=== PATIENT | female | born 1940 | race Caucasian/White ===

== ENCOUNTER 2016-06-10 11:50 | Emergency (ER) | payer MEDICARE, OTHER ==
[2016-06-10] MEDS ORDERED: SODIUM CHLORIDE 0.9% 1,000 ML IV ONE (12:39)
[2016-06-10] MEDS ORDERED: IPRATROPIUM-ALBUTEROL 3 ML NEB INHALATION STA (12:39)
[2016-06-10 13:35] LABS: ALT 31 U/L (9-52); AST 28 U/L (14-36); Alkaline Phosphatase 91 U/L (38-126); Anion Gap 11 mmol/L; Blood Urea Nitrogen 9 mg/dL (7-17); Calcium 8.7 mg/dL (8.4-10.2); Carbon Dioxide 26 mmol/L (22-30); Chloride 105 mmol/L (98-107); Glucose 105 mg/dL (74-99); Non-African American GFR(MDRD) >60 (>60 ml/min/1.73 sqM); Potassium 3.4 mmol/L (3.5-5.1); Sodium 142 mmol/L (137-145); Total Bilirubin 0.6 mg/dL (0.2-1.3); Total Protein 6.7 g/dL (6.3-8.2)
[2016-06-10 13:48] LABS: Basophils % (A) 1 %; CH 26.5; CHCM 32.7; Eosinophils # (A) 0.1 k/uL (0-0.7); Eosinophils % (A) 1 %; HCT 40.5 % (34.0-46.0); HDW 2.88; HGB 13.2 gm/dL (11.4-16.0); Luc # (Auto) 0.11; Luc % (Auto) 2; Lymphocytes # (A) 0.9 k/uL (1.0-4.8); Lymphocytes % (A) 19 %; MCH 26.5 pg (25.0-35.0); MCHC 32.6 g/dL (31.0-37.0); MCV 81.3 fL (80.0-100.0); Mean Platelet Volume 6.7; Monocytes # (A) 0.2 k/uL (0-1.0); Monocytes % (A) 5 %; Neutrophils # (A) 3.7 k/uL (1.3-7.7); Neutrophils % (A) 73 %; RBC 4.98 m/uL (3.80-5.40); RDW 15.8 % (11.5-15.5); WBC (Perox) 5.34
[2016-06-10 13:57] LABS: Appearance,Urine Cloudy (Clear); Bacteria,Urine Moderate /hpf; Bilirubin,Urine Negative (Negative); Glucose,Urine (UA) Negative (Negative); Ketones,Urine Negative (Negative); Leukocyte Esterase,Urine Large (Negative); Mucus,Urine Rare /hpf; Nitrite,Urine Positive (Negative); Particle Count 69063; Protein,Urine Trace (Negative); RBC,Urine 4 /hpf (0-5); Specific Gravity,Urine 1.016 (1.001-1.035); Squamous Epithelial Cell,Urine 2 /hpf (0-4); UA Billing (MACRO vs. MICRO) MICRO; Urobilinogen,Urine <2.0 mg/dL (<2.0); WBC,Urine 167 /hpf (0-5)
--- NOTE | 2016-06-10 14:01 | XR ---
EXAMINATION TYPE: XR chest 2V DATE OF EXAM: 06/10/2016 1:36 PM COMPARISON: Prior chest x-ray one February 2014 HISTORY: Cough, difficulty in breathing and pain TECHNIQUE: Frontal and lateral views of the chest are obtained. FINDINGS: There is no focal air space opacity, pleural effusion, or pneumothorax seen. The cardiac silhouette size is within normal limits. Apical pleural thickening is again noted. Suspect superimpos ed artifact over the anterior aspect of the heart shadow on the lateral exam. Prominent lung volume m ay be indicative of underlying COPD. The osseous structures are intact. IMPRESSION: No acute cardiopulmonary process.
[2016-06-10] MEDS ORDERED: BENZONATATE 100 MG CAP PO STA (14:24)
[2016-06-10] MEDS ORDERED: guaiFENesin-Coden 100-10MG/5ML 10 ML CUP PO STA (14:24)
[2016-06-10 14:27] LABS: Manual Review Performed
--- NOTE | 2016-06-10 14:54 | ED ---
URI HPI - General Chief Complaint: Upper Respiratory Infection Stated Complaint: cough,jeremy Source: patient Mode of arrival: ambulatory Limitations: no limitations - History of Present Illness Initial Comments: Patient is a 75-year-old female who presents for evaluation for cough 2 days. Past medical history as below. Patient states that her cough is nonproductive. She is around multiple sick contacts. She also has associated runny nose and congestion. No fevers at home. She denied a flu shot this past year. Comes in today because [id number] remedies have not seemed to help with her coughing. She's never been a smoker. No history of COPD. She denies fever, chills, headache, chest pain, heart palpitations, nausea, vomiting, diarrhea, pain or burning with urination. - Related Data Previous Rx's Medication Instructions Recorded Albuterol Inhaler [Ventolin Hfa 1 - 2 puff INHALATION Q6HR PRN #1 06/10/16 Inhaler] inhaler Benzonatate [Tessalon Perles] 100 mg PO TID PRN 5 Days 06/10/16 Ciprofloxacin HCl [Cipro] 500 mg PO Q12HR 5 Days 06/10/16 Allergies Allergy/AdvReac Type Severity Reaction Status Date / Time erythromycin base Allergy Unknown Verified 06/10/16 11:55 Penicillins Allergy Unknown Verified 06/10/16 11:55 Sulfa (Sulfonamide Allergy Unknown Verified 06/10/16 11:55 Antibiotics) tetanus and diphtheria Allergy Unknown Verified 06/10/16 11:55 toxoids [tetanus & diphtheria toxoids] Review of Systems ROS Statement: Those systems with pertinent positive or pertinent negative responses have been documented in the HPI. ROS Other: All systems not noted in ROS Statement are negative. Past Medical History Past Medical History: Coronary Artery Disease (CAD), Dementia, Fibromyalgia Additional Past Medical History / Comment(s): arthritis History of Any Multi-Drug Resistant Organisms: ESBL Date of last positivie culture/infection: 01/15/2016 MDRO Source:: URINE E.COLI Past Surgical History: Appendectomy, Heart Catheterization With Stent, Hysterectomy, Orthopedic Surgery Past Psychological History: No Psychological Hx Reported Smoking Status: Never smoker Past Alcohol Use History: None Reported Past Drug Use History: None Reported General Exam Limitations: no limitations General appearance: alert, in no apparent distress, other (Coughing in stretcher ) Head exam: Present: atraumatic, normocephalic, normal inspection Eye exam: Present: normal appearance, PERRL, EOMI. Absent: scleral icterus, conjunctival injection, periorbital swelling ENT exam: Present: normal exam, mucous membranes moist, other (Slight erythema to the posterior oropharynx.) Neck exam: Present: normal inspection. Absent: tenderness, meningismus, lymphadenopathy Respiratory exam: Present: normal lung sounds bilaterally, other (Clear bilaterally without wheezes rales or rhonchi. No significant tachypnea. No hypoxia.). Absent: respiratory distress, wheezes, rales, rhonchi, stridor Cardiovascular Exam: Present: regular rate, normal rhythm, normal heart sounds. Absent: systolic murmur, diastolic murmur, rubs, gallop, clicks GI/Abdominal exam: Present: soft, normal bowel sounds. Absent: distended, tenderness, guarding, rebound, rigid Extremities exam: Present: normal inspection, full ROM, normal capillary refill. Absent: tenderness, pedal edema, joint swelling, calf tenderness Back exam: Present: normal inspection Neurological exam: Present: alert, oriented X3, CN II-XII intact Psychiatric exam: Present: normal affect, normal mood Skin exam: Present: warm, dry, intact, normal color. Absent: rash Course Vital Signs 06/10/16 06/10/16 06/10/16 11:50 13:05 13:13 Temperature 99.2 F Pulse Rate 68 68 72 Respiratory 18 Rate Blood Pressure 188/79 O2 Sat by Pulse 97 Oximetry 06/10/16 15:04 Temperature 97.8 F Pulse Rate 70 Respiratory 16 Rate Blood Pressure 141/70 O2 Sat by Pulse 95 Oximetry Medical Decision Making - Medical Decision Making Patient presents for evaluation for cough 2 days. Concern for viral illness at this time as she is having upper respiratory symptoms with a nonproductive cough. We'll order basic labs with a two-view chest x-ray, influenza, IV fluids , breathing treatments. -Laboratory findings as below. Largely unremarkable. EKG was reviewed at 1415 revealed possible incomplete left bundle branch block without ST changes. No previous EKGs for comparison. Rate of 73. MS interval 182. QRS 102. QTc 475. Reevaluated the patient discussed findings. No infiltrate on chest x-ray to suggest pneumonia. Influenza negative. She does have evidence of urinary tract infection. Ordered Rocephin and a urine culture. Patient still saying that she has significant cough. We'll order Tessalon Perles and guaifenesin with codeine. 1513: Cough improved after Tessalon Perles and guaifenesin with codeine. Patient states that she just does not feel well. Gave patient the option of observation for urinary tract infection and persistent cough. Patient declined. Patient is more concerned about her at home who has multiple medical conditions including cardiac and lung pathology. She is otherwise clinically stable with normal vital signs. Reexamination of her breath sounds were normal. Believe that the patient has a viral upper respiratory infection at this time complicated by a bacterial urinary tract infection. Multiple ALLERGIES to antibiotics. We'll discharge home on a 5 day course of ciprofloxacin. Was going to do Levaquin but stated that she did not tolerated in the past. We'll also discharge home with albuterol and Tessalon Perles. Encourage close follow-up with her primary care physician. We'll call this afternoon to set up a follow-up appointment in the next 24 hours. Discussed signs and symptoms on when to return to the emergency department for further evaluation. Comfortable with discharge home and follow-up. Frequent handwashing. Plenty of fluids. Tylenol and Motrin when necessary pain. - Lab Data Result diagrams: 06/10/16 13:10 06/10/16 13:10 Lab Results 06/10/16 06/10/16 06/10/16 Range/Units 13:01 13:01 13:10 WBC 5.0 (3.8-10.6) k/uL RBC 4.98 (3.80-5.40) m/uL Hgb 13.2 (11.4-16.0) gm/dL Hct 40.5 (34.0-46.0) % MCV 81.3 (80.0-100.0) fL MCH 26.5 (25.0-35.0) pg MCHC 32.6 (31.0-37.0) g/dL RDW 15.8 H (11.5-15.5) % Plt Count 93 L (150-450) k/uL Neutrophils % 73 % Lymphocytes % 19 % Monocytes % 5 % Eosinophils % 1 % Basophils % 1 % Neutrophils # 3.7 (1.3-7.7) k/uL Lymphocytes # 0.9 L (1.0-4.8) k/uL Monocytes # 0.2 (0-1.0) k/uL Eosinophils # 0.1 (0-0.7) k/uL Basophils # 0.0 (0-0.2) k/uL Manual Slide Review Performed Poikilocytosis (manual Present Sodium (137-145) mmol/L Potassium (3.5-5.1) mmol/L Chloride (98-107) mmol/L Carbon Dioxide (22-30) mmol/L Anion Gap mmol/L BUN (7-17) mg/dL Creatinine (0.52-1.04) mg/dL Est GFR (MDRD) Af Amer (>60 ml/min/1.73 sqM) Est GFR (MDRD) Non-Af (>60 ml/min/1.73 sqM) Glucose (74-99) mg/dL Calcium (8.4-10.2) mg/dL Total Bilirubin (0.2-1.3) mg/dL AST (14-36) U/L ALT (9-52) U/L Alkaline Phosphatase (38-126) U/L Total Protein (6.3-8.2) g/dL Albumin (3.5-5.0) g/dL Urine Color Yellow Urine Appearance Cloudy H (Clear) Urine pH 6.0 (5.0-8.0) Ur Specific [place] 1.016 (1.001-1.035) Urine Protein Trace H (Negative) Urine Glucose (UA) Negative (Negative) Urine Ketones Negative (Negative) Urine Blood Trace H (Negative) Urine Nitrate Positive H (Negative) Urine Bilirubin Negative (Negative) Urine Urobilinogen <2.0 (<2.0) mg/dL Ur Leukocyte Esterase Large H (Negative) Urine RBC 4 (0-5) /hpf Urine WBC 167 H (0-5) /hpf Ur Squamous Epith Cells 2 (0-4) /hpf Urine Bacteria Moderate H (None) /hpf Urine Mucus Rare H (None) /hpf Influenza Type A RNA Not Detected (Not Detectd) Influenza Type B (PCR) Not Detected (Not Detectd) 06/10/16 Range/Units 13:10 WBC (3.8-10.6) k/uL RBC (3.80-5.40) m/uL Hgb (11.4-16.0) gm/dL Hct (34.0-46.0) % MCV (80.0-100.0) fL MCH (25.0-35.0) pg MCHC (31.0-37.0) g/dL RDW (11.5-15.5) % Plt Count (150-450) k/uL Neutrophils % % Lymphocytes % % Monocytes % % Eosinophils % % Basophils % % Neutrophils # (1.3-7.7) k/uL Lymphocytes # (1.0-4.8) k/uL Monocytes # (0-1.0) k/uL Eosinophils # (0-0.7) k/uL Basophils # (0-0.2) k/uL Manual Slide Review Poikilocytosis (manual Sodium 142 (137-145) mmol/L Potassium 3.4 L (3.5-5.1) mmol/L Chloride 105 (98-107) mmol/L Carbon Dioxide 26 (22-30) mmol/L Anion Gap 11 mmol/L BUN 9 (7-17) mg/dL Creatinine 0.63 (0.52-1.04) mg/dL Est GFR (MDRD) Af Amer >60 (>60 ml/min/1.73 sqM) Est GFR (MDRD) Non-Af >60 (>60 ml/min/1.73 sqM) Glucose 105 H (74-99) mg/dL Calcium 8.7 (8.4-10.2) mg/dL Total Bilirubin 0.6 (0.2-1.3) mg/dL AST 28 (14-36) U/L ALT 31 (9-52) U/L Alkaline Phosphatase 91 (38-126) U/L Total Protein 6.7 (6.3-8.2) g/dL Albumin 4.0 (3.5-5.0) g/dL Urine Color Urine Appearance (Clear) Urine pH (5.0-8.0) Ur Specific [place] (1.001-1.035) Urine Protein (Negative) Urine Glucose (UA) (Negative) Urine Ketones (Negative) Urine Blood (Negative) Urine Nitrate (Negative) Urine Bilirubin (Negative) Urine Urobilinogen (<2.0) mg/dL Ur Leukocyte Esterase (Negative) Urine RBC (0-5) /hpf Urine WBC (0-5) /hpf Ur Squamous Epith Cells (0-4) /hpf Urine Bacteria (None) /hpf Urine Mucus (None) /hpf Influenza Type A RNA (Not Detectd) Influenza Type B (PCR) (Not Detectd) Disposition Clinical Impression: Viral respiratory illness, Cough, UTI (urinary tract infection) Disposition: HOME SELF-CARE Condition: Good Instructions: Upper Respiratory Infection (ED), Urinary Tract Infection in Women (ED) Prescriptions: Albuterol Inhaler [Ventolin Hfa Inhaler] 1 - 2 puff INHALATION Q6HR PRN #1 inhaler PRN Reason: Cough Benzonatate [Tessalon Perles] 100 mg PO TID PRN 5 Days PRN Reason: Cough Ciprofloxacin HCl [Cipro] 500 mg PO Q12HR 5 Days Referrals: Katlyn Kendrick MD [Primary Care Provider] - 1-2 days
[2016-06-10 15:05] VITALS: BP 141/70; PULSE 70; RESP 16; TEMP 97.8
== END 2016-06-10 15:59 | disposition home or self-care (01) ==
LOC: EC 11:50
DX: J06.9 Acute upper respiratory infection, unspecified (principal); N39.0 Urinary tract infection, site not specified; Z88.0 Allergy status to penicillin; Z88.1 Allergy status to other antibiotic agents; Z88.2 Allergy status to sulfonamides; Z88.7 Allergy status to serum and vaccine
CPT/HCPCS: 99284 ×2; 96365 ×2; 96361 ×2; 36415; 94640; 93005; 80053; 85025; 81001; 87086; 87077; 87186; 87502; 71020; J0696

== ENCOUNTER 2016-06-23 12:02 | Inpatient (IN) | payer MEDICARE, OTHER ==
[2016-06-23] MEDS ORDERED: SODIUM CHLORIDE 0.9% 1,000 ML IV STA (14:03)
--- NOTE | 2016-06-23 14:22 | ED ---
Dizziness HPI - General Chief Complaint: Dizziness Stated Complaint: Fall - Back Pain Time Seen by Provider: 06/23/16 13:59 Source: patient, RN notes reviewed Mode of arrival: ambulatory Limitations: no limitations - History of Present Illness Initial Comments: Patient is a 75-year-old female presents emergency room for evaluation of dizziness. Patient states she has been battling with dizziness for the past few months. Patient states that her primary care provider adjusted her medications about 2 months ago and her dizziness subsided. Patient states that she's recently diagnosed with urinary tract infection that showed positive for E. coli. Patient states she has been on IV antibiotics for the past 4 days. Patient states she has been coming into the hospital to get IV antibiotic infusions. Patient states her last infusion was this morning. Patient states that ever since starting IV antibiotics she's been more dizzy. Patient also states that she's been having diarrhea. Patient states yesterday she was so dizzy she fell over and fell on top of her trashcan, breaking it and hitting her head and her bottom. Patient states she's having a headache. Patient denies changes in vision, ringing in ears. Patient denies neck pain. Patient states she's having severe pain in her tailbone area. Patient states she has a large bruise in that area as well. Patient denies any other injuries during incident. - Related Data Home Medications Medication Instructions Recorded Confirmed Donepezil HCl [Donepezil HCl] 23 mg PO DAILY 06/21/16 06/23/16 Memantine [Namenda] 10 mg PO DAILY 06/21/16 06/23/16 Metoprolol Succinate (ER) [Toprol 25 mg PO DAILY 06/21/16 06/23/16 Xl] Oxybutynin Chloride [Ditropan] 5 mg PO BID 06/21/16 06/23/16 Sertraline HCl [Zoloft] 200 mg PO DAILY 06/21/16 06/23/16 Latanoprost [Xalatan 0.005%] 1 drop BOTH EYES HS 06/23/16 06/23/16 rOPINIRole HCL [Requip] 2 mg PO DAILY 06/23/16 06/23/16 Allergies Allergy/AdvReac Type Severity Reaction Status Date / Time erythromycin base Allergy Unknown Verified 06/23/16 14:32 Penicillins Allergy Unknown Verified 06/23/16 14:32 Sulfa (Sulfonamide Allergy Unknown Verified 06/23/16 14:32 Antibiotics) tetanus and diphtheria Allergy Unknown Verified 06/23/16 14:32 toxoids [tetanus & diphtheria toxoids] Review of Systems ROS Statement: Those systems with pertinent positive or pertinent negative responses have been documented in the HPI. ROS Other: All systems not noted in ROS Statement are negative. Past Medical History Past Medical History: Coronary Artery Disease (CAD), Dementia, Fibromyalgia Additional Past Medical History / Comment(s): arthritis History of Any Multi-Drug Resistant Organisms: ESBL Date of last positivie culture/infection: 06/10/16 ESBL E.coli MDRO Source:: Urine Past Surgical History: Appendectomy, Heart Catheterization With Stent, Hysterectomy, Orthopedic Surgery Past Psychological History: No Psychological Hx Reported Smoking Status: Never smoker Past Alcohol Use History: None Reported Past Drug Use History: None Reported General Exam - General Exam Comments Initial Comments: Sitting in exam room, no acute distress. Limitations: no limitations General appearance: alert, in no apparent distress Head exam: Present: atraumatic, normocephalic, normal inspection Eye exam: Present: normal appearance, PERRL, EOMI Pupils: Present: normal accommodation ENT exam: Present: normal exam, normal oropharynx, mucous membranes moist, TM's normal bilaterally, normal external ear exam Neck exam: Present: normal inspection, full ROM. Absent: tenderness, lymphadenopathy Respiratory exam: Present: normal lung sounds bilaterally. Absent: respiratory distress Cardiovascular Exam: Present: regular rate, normal rhythm, normal heart sounds Extremities exam: Present: normal inspection Back exam: Present: other (Ecchymosis over right sacral and coccyx area) Neurological exam: Present: alert, oriented X3, CN II-XII intact Psychiatric exam: Present: normal affect, normal mood Skin exam: Present: warm, dry, intact, normal color. Absent: rash Course Vital Signs 06/23/16 06/23/16 06/23/16 12:21 14:30 16:07 Temperature 97.0 F L 98.2 F Pulse Rate 63 56 L Pulse Rate [ 58 L Sitting] Pulse Rate [ 65 Standing] Pulse Rate [ 56 L Supine] Respiratory 16 18 Rate Blood Pressure 170/77 225/92 Blood Pressure 225/65 [Sitting] Blood Pressure 205/88 [Standing] Blood Pressure 210/94 [Supine] O2 Sat by Pulse 98 98 Oximetry 06/23/16 06/23/16 17:11 18:05 Temperature Pulse Rate 57 L 60 Pulse Rate [ Sitting] Pulse Rate [ Standing] Pulse Rate [ Supine] Respiratory 18 18 Rate Blood Pressure 202/89 219/89 Blood Pressure [Sitting] Blood Pressure [Standing] Blood Pressure [Supine] O2 Sat by Pulse 98 98 Oximetry Medical Decision Making - Medical Decision Making Patient is a 75-year-old female presents emergency room for evaluation of fall and dizziness. Brain/spine CT shows no acute findings. Patient was complaining of ecchymosis and pain in her tailbone region. X-ray shows no signs of fractures or dislocations. Labs show no significant findings. Case discussed with Dr. Nascimento. Due to patient feeling dizzy and falling due to dizziness patient will be admitted for further evaluation. Patient has been treated with IV Ertapenem over the past weekend for urinary tract infection. It appears that urinary tract infection is being resolved with IV antibiotics. Patient also noted to have increased blood pressure. - Lab Data Result diagrams: 06/23/16 14:45 06/23/16 14:45 Lab Results 06/23/16 06/23/16 06/23/16 Range/Units 14:45 14:45 14:45 WBC 7.4 (3.8-10.6) k/uL RBC 5.12 (3.80-5.40) m/uL Hgb 13.4 (11.4-16.0) gm/dL Hct 41.0 (34.0-46.0) % MCV 80.0 (80.0-100.0) fL MCH 26.1 (25.0-35.0) pg MCHC 32.7 (31.0-37.0) g/dL RDW 15.4 (11.5-15.5) % Plt Count 158 D (150-450) k/uL Neutrophils % 63 % Lymphocytes % 30 % Monocytes % 3 % Eosinophils % 2 % Basophils % 1 % Neutrophils # 4.7 (1.3-7.7) k/uL Lymphocytes # 2.2 (1.0-4.8) k/uL Monocytes # 0.3 (0-1.0) k/uL Eosinophils # 0.1 (0-0.7) k/uL Basophils # 0.1 (0-0.2) k/uL PT (9.0-12.0) sec INR (<1.1) Sodium 143 (137-145) mmol/L Potassium 3.7 (3.5-5.1) mmol/L Chloride 103 (98-107) mmol/L Carbon Dioxide 27 (22-30) mmol/L Anion Gap 13 mmol/L BUN 10 (7-17) mg/dL Creatinine 0.62 (0.52-1.04) mg/dL Est GFR (MDRD) Af Amer >60 (>60 ml/min/1.73 sqM) Est GFR (MDRD) Non-Af >60 (>60 ml/min/1.73 sqM) Glucose 102 H (74-99) mg/dL POC Glucose (mg/dL) (75-99) mg/dL POC Glu Fitness Teacher ID Plasma Lactic Acid Gal 1.7 (0.7-2.0) mmol/L Calcium 9.0 (8.4-10.2) mg/dL Total Bilirubin 0.6 (0.2-1.3) mg/dL AST 30 (14-36) U/L ALT 25 (9-52) U/L Alkaline Phosphatase 101 (38-126) U/L Troponin I (0.000-0.034) ng/mL Total Protein 7.0 (6.3-8.2) g/dL Albumin 4.1 (3.5-5.0) g/dL Urine Color Urine Appearance (Clear) Urine pH (5.0-8.0) Ur Specific [place] (1.001-1.035) Urine Protein (Negative) Urine Glucose (UA) (Negative) Urine Ketones (Negative) Urine Blood (Negative) Urine Nitrite (Negative) Urine Bilirubin (Negative) Urine Urobilinogen (<2.0) mg/dL Ur Leukocyte Esterase (Negative) Urine Opiates Screen (NotDetected) Ur Oxycodone Screen (NotDetected) Urine Methadone Screen (NotDetected) Ur Propoxyphene Screen (NotDetected) Ur Barbiturates Screen (NotDetected) U Tricyclic Antidepress (NotDetected) Ur Phencyclidine Scrn (NotDetected) Ur Amphetamines Screen (NotDetected) U Methamphetamines Scrn (NotDetected) U Benzodiazepines Scrn (NotDetected) Urine Cocaine Screen (NotDetected) U Marijuana (THC) Screen (NotDetected) 06/23/16 06/23/16 06/23/16 Range/Units 14:45 14:45 15:01 WBC (3.8-10.6) k/uL RBC (3.80-5.40) m/uL Hgb (11.4-16.0) gm/dL Hct (34.0-46.0) % MCV (80.0-100.0) fL MCH (25.0-35.0) pg MCHC (31.0-37.0) g/dL RDW (11.5-15.5) % Plt Count (150-450) k/uL Neutrophils % % Lymphocytes % % Monocytes % % Eosinophils % % Basophils % % Neutrophils # (1.3-7.7) k/uL Lymphocytes # (1.0-4.8) k/uL Monocytes # (0-1.0) k/uL Eosinophils # (0-0.7) k/uL Basophils # (0-0.2) k/uL PT 11.3 (9.0-12.0) sec INR 1.1 (<1.1) Sodium (137-145) mmol/L Potassium (3.5-5.1) mmol/L Chloride (98-107) mmol/L Carbon Dioxide (22-30) mmol/L Anion Gap mmol/L BUN (7-17) mg/dL Creatinine (0.52-1.04) mg/dL Est GFR (MDRD) Af Amer (>60 ml/min/1.73 sqM) Est GFR (MDRD) Non-Af (>60 ml/min/1.73 sqM) Glucose (74-99) mg/dL POC Glucose (mg/dL) 98 (75-99) mg/dL POC Glu Fitness Teacher ID Aldenbeatrice Ericka Plasma Lactic Acid Gal (0.7-2.0) mmol/L Calcium (8.4-10.2) mg/dL Total Bilirubin (0.2-1.3) mg/dL AST (14-36) U/L ALT (9-52) U/L Alkaline Phosphatase (38-126) U/L Troponin I <0.012 (0.000-0.034) ng/mL Total Protein (6.3-8.2) g/dL Albumin (3.5-5.0) g/dL Urine Color Urine Appearance (Clear) Urine pH (5.0-8.0) Ur Specific [place] (1.001-1.035) Urine Protein (Negative) Urine Glucose (UA) (Negative) Urine Ketones (Negative) Urine Blood (Negative) Urine Nitrite (Negative) Urine Bilirubin (Negative) Urine Urobilinogen (<2.0) mg/dL Ur Leukocyte Esterase (Negative) Urine Opiates Screen (NotDetected) Ur Oxycodone Screen (NotDetected) Urine Methadone Screen (NotDetected) Ur Propoxyphene Screen (NotDetected) Ur Barbiturates Screen (NotDetected) U Tricyclic Antidepress (NotDetected) Ur Phencyclidine Scrn (NotDetected) Ur Amphetamines Screen (NotDetected) U Methamphetamines Scrn (NotDetected) U Benzodiazepines Scrn (NotDetected) Urine Cocaine Screen (NotDetected) U Marijuana (THC) Screen (NotDetected) 06/23/16 Range/Units 16:00 WBC (3.8-10.6) k/uL RBC (3.80-5.40) m/uL Hgb (11.4-16.0) gm/dL Hct (34.0-46.0) % MCV (80.0-100.0) fL MCH (25.0-35.0) pg MCHC (31.0-37.0) g/dL RDW (11.5-15.5) % Plt Count (150-450) k/uL Neutrophils % % Lymphocytes % % Monocytes % % Eosinophils % % Basophils % % Neutrophils # (1.3-7.7) k/uL Lymphocytes # (1.0-4.8) k/uL Monocytes # (0-1.0) k/uL Eosinophils # (0-0.7) k/uL Basophils # (0-0.2) k/uL PT (9.0-12.0) sec INR (<1.1) Sodium (137-145) mmol/L Potassium (3.5-5.1) mmol/L Chloride (98-107) mmol/L Carbon Dioxide (22-30) mmol/L Anion Gap mmol/L BUN (7-17) mg/dL Creatinine (0.52-1.04) mg/dL Est GFR (MDRD) Af Amer (>60 ml/min/1.73 sqM) Est GFR (MDRD) Non-Af (>60 ml/min/1.73 sqM) Glucose (74-99) mg/dL POC Glucose (mg/dL) (75-99) mg/dL POC Glu Fitness Teacher ID Plasma Lactic Acid Gal (0.7-2.0) mmol/L Calcium (8.4-10.2) mg/dL Total Bilirubin (0.2-1.3) mg/dL AST (14-36) U/L ALT (9-52) U/L Alkaline Phosphatase (38-126) U/L Troponin I (0.000-0.034) ng/mL Total Protein (6.3-8.2) g/dL Albumin (3.5-5.0) g/dL Urine Color Colorless Urine Appearance Clear (Clear) Urine pH 7.5 (5.0-8.0) Ur Specific [place] 1.003 (1.001-1.035) Urine Protein Negative (Negative) Urine Glucose (UA) Negative (Negative) Urine Ketones Negative (Negative) Urine Blood Negative (Negative) Urine Nitrite Negative (Negative) Urine Bilirubin Negative (Negative) Urine Urobilinogen <2.0 (<2.0) mg/dL Ur Leukocyte Esterase Negative (Negative) Urine Opiates Screen Not Detected (NotDetected) Ur Oxycodone Screen Not Detected (NotDetected) Urine Methadone Screen Not Detected (NotDetected) Ur Propoxyphene Screen Not Detected (NotDetected) Ur Barbiturates Screen Not Detected (NotDetected) U Tricyclic Antidepress Not Detected (NotDetected) Ur Phencyclidine Scrn Not Detected (NotDetected) Ur Amphetamines Screen Not Detected (NotDetected) U Methamphetamines Scrn Not Detected (NotDetected) U Benzodiazepines Scrn Not Detected (NotDetected) Urine Cocaine Screen Not Detected (NotDetected) U Marijuana (THC) Screen Not Detected (NotDetected) - Radiology Data Radiology results: report reviewed, image reviewed Disposition Clinical Impression: Dizziness, Fall, Hypertension Disposition: ADMITTED IP TO THIS [facility] Condition: Stable Referrals: Katlyn Kendrick MD [Primary Care Provider] - 1-2 days Decision Date: 06/23/16
[2016-06-23 15:03] LABS: Glucose,Whole Blood 98 mg/dL (75-99)
[2016-06-23 15:18] LABS: ALT 25 U/L (9-52); AST 30 U/L (14-36); Alkaline Phosphatase 101 U/L (38-126); Anion Gap 13 mmol/L; Blood Urea Nitrogen 10 mg/dL (7-17); Carbon Dioxide 27 mmol/L (22-30); Chloride 103 mmol/L (98-107); Glucose 102 mg/dL (74-99); Non-African American GFR(MDRD) >60 (>60 ml/min/1.73 sqM); Potassium 3.7 mmol/L (3.5-5.1); Sodium 143 mmol/L (137-145); Total Bilirubin 0.6 mg/dL (0.2-1.3)
[2016-06-23 15:20] LABS: INR 1.1 (<1.1); Prothrombin Time 11.3 sec (9.0-12.0)
[2016-06-23 15:27] LABS: Basophils # (A) 0.1 k/uL (0-0.2); Basophils % (A) 1 %; CH 26.4; CHCM 33.1; Eosinophils # (A) 0.1 k/uL (0-0.7); Eosinophils % (A) 2 %; HDW 3.19; HGB 13.4 gm/dL (11.4-16.0); Luc # (Auto) 0.11; Luc % (Auto) 2; Lymphocytes # (A) 2.2 k/uL (1.0-4.8); Lymphocytes % (A) 30 %; MCH 26.1 pg (25.0-35.0); MCHC 32.7 g/dL (31.0-37.0); Mean Platelet Volume 7.1; Monocytes # (A) 0.3 k/uL (0-1.0); Monocytes % (A) 3 %; Neutrophils # (A) 4.7 k/uL (1.3-7.7); Neutrophils % (A) 63 %; RBC 5.12 m/uL (3.80-5.40); RDW 15.4 % (11.5-15.5); WBC 7.4 k/uL (3.8-10.6); WBC (Perox) 7.59
--- NOTE | 2016-06-23 15:36 | CT ---
EXAMINATION TYPE: CT brain genna wo con DATE OF EXAM: 06/23/2016 3:29 PM COMPARISON: 01/12/2016 HISTORY: Patient is poor historian. Patient probable fall today. CT DLP: 1332.[address] of the brain was performed. The ventricles, basal cisterns and sulci overlying the cerebral convexities demonstrate mild enlargem ent. There is no evidence for intracranial hemorrhage or sulcal effacement. There is decreased attenuatio n about the periventricular white matter and deep white matter of both cerebral hemispheres, compatib le with chronic small vessel ischemia. No mass effects are seen. If symptoms persist consider MRI. Osseous calvarium is intact. IMPRESSION: 1. Age related atrophic and chronic small vessel ischemic change without acute intracranial process seen at this time. CT Cervical Spine: Unenhanced CT of the cervical spine was performed with bone and soft tissue window settings submitted . Coronal and sagittal reconstruction is obtained. There is normal alignment and prevertebral soft tissues. No evidence for acute cervical fracture . Scattered degenerative disc disease and spondylosis. Biapical scarring. IMPRESSION: 1. No evidence for acute fracture or subluxation of the cervical spine.
--- NOTE | 2016-06-23 15:50 | XR ---
EXAMINATION TYPE: XR lumbosacral spine min 4V DATE OF EXAM ORDERED: 06/23/2016 3:41 PM HISTORY: Pain. COMPARISON: None. FINDINGS: Vertebral body height and alignment are maintained. There is no spondylolysis or spondylol isthesis. There is disc space loss at L3-4, L4-5 and L5-S1. This hypertrophic spondylosis at L4-5. There is mild, diffuse facet arthropathy. The pedicles are intact. IMPRESSION: 1. NO ACUTE OSSEOUS LESION. 2. DEGENERATIVE CHANGE.
--- NOTE | 2016-06-23 15:51 | XR ---
EXAMINATION TYPE: XR sacrum coccyx DATE OF EXAM ORDERED: 06/23/2016 3:41 PM HISTORY: Pain. COMPARISON: None. FINDINGS: There is a right hip arthroplasty in place. There is sclerosis of the symphysis pubis sugg estive of osteitis pubis. No fracture or other acute osseous lesion is seen. There are degenerative c hanges in the spine. IMPRESSION: 1. NO ACUTE OSSEOUS LESION. 2. DEGENERATIVE CHANGE. 3. FINDINGS SUGGESTIVE OF OSTEITIS PUBIS.
[2016-06-23] MEDS ORDERED: MECLIZINE 12.5 MG TAB PO STA (16:05)
[2016-06-23] MEDS ORDERED: LABETALOL 5 MG/ML VIAL MDV IVP STA (16:05)
[2016-06-23 16:17] LABS: Appearance,Urine Clear (Clear); Bilirubin,Urine Negative (Negative); Glucose,Urine (UA) Negative (Negative); Ketones,Urine Negative (Negative); Leukocyte Esterase,Urine Negative (Negative); Nitrite,Urine Negative (Negative); PH, Urine 7.5 (5.0-8.0); Protein,Urine Negative (Negative); Specific Gravity,Urine 1.003 (1.001-1.035); UA Billing (MACRO vs. MICRO) CHEM; Urobilinogen,Urine <2.0 mg/dL (<2.0)
[2016-06-23] MEDS ORDERED: ONDANSETRON 4 MG/2 ML VIAL IVP PRN (16:36)
[2016-06-23] MEDS ORDERED: NALOXONE 0.4 MG/ML 1 ML VIAL IV PRN (16:36)
[2016-06-23] MEDS ORDERED: hydrALAZINE HCL 20 MG/ML 1 ML VIAL IVP STA ×2 (17:14→18:19)
[2016-06-23] MEDS: SODIUM CHLORIDE 0.9% 1,000 ML IV SCH (17:35)
[2016-06-23] MEDS ORDERED: DIAZEPAM 5 MG/ML 2 ML SYRINGE IVP STA (18:18)
[2016-06-23] MEDS ORDERED: cloNIDine HCL 0.1 MG TAB PO PRN (20:35)
[2016-06-23 22:03] VITALS: BMI 27.8
[2016-06-23 22:18] VITALS: RESP 20
[2016-06-23] MEDS: hydrALAZINE HCL 50 MG TAB PO SCH (22:32)
--- NOTE | 2016-06-24 00:29 | P.HPIM ---
History of Present Illness H&P Date: 06/23/16 Chief Complaint: Severe dizziness, back pain, fall with tailbone injury, history of ESBL on 75-year-old female one of Dr. Kendrick's patient with past medical history of CAD post angioplasty and stent placement, history of fibromyalgia, recurrent UTI who was apparently was knee emergency department 2 weeks ago for vague symptoms consistent with mild cough and URI symptoms with dizziness and lightheadedness her urine culture surprisingly came back positive for ESBL patient was called and scheduled to have an IV antibiotic with ertapenem which has been done for the last few days as an outpatient in the hospital infusion center. Patient has not been feeling well since she started her antibiotics according to her has been having more dizziness lightheadedness significant abnormal balance and gait and significantly elevated blood pressure with urgent hypertension. Ended up coming to [facility] department today for evaluation found to be quite lightheaded dizzy with abnormal gait also found to have emergency hypertension with blood pressure running about 200 not control currently. Patient was hospitalized after full workup including neck x-ray with C-spine along with CT of the brain and the coccyx bone came back with no major fracture. Also patient probably going through quite bed side effect of medication been on few agent can cause lightheadedness and dizziness from her Namenda, Aricept, metoprolol, that Ditropan, record on Zoloft. Patient be hospitalized for the above problem. Review of Systems Constitutional: Reports anorexia, Reports chronic pain, Reports fatigue, Reports fever, Reports lethargy, Reports malaise, Reports weakness, Reports weight loss, Denies as per HPI, Denies chills, Denies chronic headaches, Denies daytime sleepiness, Denies night sweats, Denies poor appetite, Denies sweats, Denies weight gain Eyes: bilateral as per HPI Ears: bilateral: decreased hearing Ears, nose, mouth and throat: Reports ant. neck pain, Reports nasal congestion, Reports sinus pressure, Reports sore throat, Denies as per HPI, Denies bleeding gums, Denies dental pain, Denies dysphagia, Denies epistaxis, Denies headache, Denies hoarseness, Denies mouth pain, Denies nasal discharge, Denies neck fullness/pressure, Denies neck lump, Denies nose pain, Denies odynophagia, Denies post-nasal drip, Denies sinus pain, Denies swelling in mouth, Denies swelling in throat, Denies vertigo, Denies voice changes Cardiovascular: Reports dyspnea on exertion, Reports edema, Reports high blood pressure, Reports irregular heart beat, Reports lightheadedness, Reports orthopnea, Reports paroxysmal nocturnal dyspnea, Reports rapid heart beat, Reports shortness of breath, Denies as per HPI, Denies chest pain, Denies claudication, Denies decreased exercise tolerance, Denies leg edema, Denies palpitations, Denies phlebitis, Denies syncope Respiratory: Reports congestion, Reports dyspnea, Reports wheezing, Denies as per HPI, Denies cough, Denies cough with sputum, Denies excessive sputum, Denies hemoptysis, Denies home oxygen, Denies pain, Denies pain on inspiration, Denies pleurisy, Denies respiratory infections, Denies sleep apnea, Denies snoring Gastrointestinal: Reports abdominal pain, Reports bloating, Reports dyspepsia, Reports indigestion, Reports nausea, Denies as per HPI, Denies belching, Denies BRBPR, Denies change in bowel habits, Denies coffee ground emesis, Denies constipation, Denies diarrhea, Denies early satiety, Denies excessive gas, Denies heartburn, Denies hematemesis, Denies hematochezia, Denies jaundice, Denies lactose intolerance, Denies loss of appetite, Denies melena, Denies vomiting Genitourinary: Reports dysuria, Reports flank pain, Reports incomplete emptying , Reports stress incontinence, Reports urge incontinence, Reports urinary frequency, Denies as per HPI, Denies abnormal vaginal bleeding, Denies decreased libido, Denies difficulty conceiving, Denies difficulty voiding, Denies dysmenorrhea, Denies dyspareunia, Denies genital sores, Denies hematuria , Denies hot flashes, Denies kidney stones, Denies menorrhagia, Denies mixed incontinence, Denies nocturia, Denies pelvic pain, Denies post void dribbling, Denies , Denies prolapse symptoms, Denies urgency, Denies vaginal discharge, Denies vaginal dryness, Denies vaginal itching, Denies vaginal odor Musculoskeletal: Reports frequent falls, Reports loss of height, Reports low back pain, Reports myalgias, Reports neck pain, Denies as per HPI, Denies arm numbness/tingling, Denies atrophy, Denies fractures, Denies gait dysfunction, Denies hot joints, Denies leg numbness/tingling, Denies limitation of motion, Denies morning stiffness, Denies muscle cramps, Denies muscle weakness, Denies neck stiffness, Denies prior amputations, Denies redness of joints, Denies shooting arm pain, Denies shooting leg pain Musculoskeletal: bilateral: ankle pain Integumentary: Reports pruritus, Reports rash, Denies as per HPI, Denies acne, Denies boils, Denies brittle nails, Denies change in hair/nails, Denies color changes, Denies darkening of skin, Denies depigmentation, Denies dryness, Denies foot/leg ulcers, Denies growths, Denies hirsutism, Denies lesions, Denies onychomycosis, Denies sores, Denies striae, Denies unusual bruising, Denies wounds Neurological: Reports ataxia, Reports balance difficulties, Reports gait dysfunction, Reports lack of coordination, Reports paresthesias, Reports tingling, Reports vertigo, Reports weakness, Denies as per HPI, Denies aphasia, Denies burning pain, Denies change in mentation, Denies change in smell/taste, Denies change in speech, Denies confusion, Denies convulsions, Denies double vision, Denies head injury, Denies headaches, Denies hearing difficulties, Denies loss of vision, Denies memory loss, Denies migraines, Denies motor disturbance, Denies numbness, Denies paralysis, Denies seizures, Denies sensory deficit, Denies spasticity, Denies syncope, Denies tic, Denies transient paralysis, Denies tremors, Denies visual changes Endocrine: Reports excessive thirst, Reports fatigue, Reports nocturia, Denies as per HPI, Denies cold intolerance, Denies deepening of the voice, Denies excessive sweating, Denies flushing, Denies heat intolerance, Denies high blood sugars, Denies increase in ring/shoe/hat size, Denies low blood sugars, Denies palpitations, Denies polydipsia, Denies polyphagia, Denies polyuria, Denies proptosis, Denies recent glucocorticoid use, Denies thyroid mass, Denies weight change Hematologic/Lymphatic: Reports easy bruising, Denies as per HPI, Denies easy bleeding, Denies lymphadenopathy, Denies lymphedema, Denies thrombophilia Allergic/Immunologic: Reports allergic rhinitis, Denies as per HPI, Denies anaphylaxis, Denies angioedema, Denies gluten intolerance, Denies persistent infections, Denies seasonal allergies, Denies urticaria, Denies wheezing Past Medical History Past Medical History: Coronary Artery Disease (CAD), Dementia, Fibromyalgia Additional Past Medical History / Comment(s): arthritis History of Any Multi-Drug Resistant Organisms: ESBL Date of last positivie culture/infection: 06/10/16 ESBL E.coli MDRO Source:: Urine Past Surgical History: Appendectomy, Heart Catheterization With Stent, Hysterectomy, Orthopedic Surgery Additional Past Surgical History / Comment(s): hip replacement Past Anesthesia/Blood Transfusion Reactions: No Reported Reaction Date of Last Stent Placement:: 2004 Past Psychological History: No Psychological Hx Reported Smoking Status: Never smoker Past Alcohol Use History: None Reported Past Drug Use History: None Reported Medications and Allergies Home Medications Medication Instructions Recorded Confirmed Type Donepezil HCl [Donepezil HCl] 23 mg PO DAILY 06/21/16 06/23/16 History Memantine [Namenda] 10 mg PO DAILY 06/21/16 06/23/16 History Metoprolol Succinate (ER) [Toprol 25 mg PO DAILY 06/21/16 06/23/16 History Xl] Oxybutynin Chloride [Ditropan] 5 mg PO BID 06/21/16 06/23/16 History Sertraline HCl [Zoloft] 200 mg PO DAILY 06/21/16 06/23/16 History Latanoprost [Xalatan 0.005%] 1 drop BOTH EYES HS 06/23/16 06/23/16 History rOPINIRole HCL [Requip] 2 mg PO DAILY 06/23/16 06/23/16 History Allergies Allergy/AdvReac Type Severity Reaction Status Date / Time erythromycin base Allergy Unknown Verified 06/23/16 22:09 Penicillins Allergy Unknown Verified 06/23/16 22:09 Sulfa (Sulfonamide Allergy Unknown Verified 06/23/16 22:09 Antibiotics) tetanus and diphtheria Allergy Unknown Verified 06/23/16 22:09 toxoids [tetanus & diphtheria toxoids] Physical Exam Vitals: Vital Signs Temp Pulse Pulse Resp BP BP Pulse Ox 06/23/16 22:17 96.9 F L 63 20 145/65 95 06/23/16 21:34 98.2 F 62 18 153/67 97 06/23/16 20:36 65 18 183/79 98 06/23/16 20:09 68 18 175/105 97 06/23/16 19:35 69 18 164/70 97 06/23/16 19:02 62 18 213/79 98 06/23/16 18:05 60 18 219/89 98 06/23/16 17:11 57 L 18 202/89 98 Intake and Output 06/23/16 06/23/16 06/24/16 14:59 22:59 06:59 Other: Weight 76 kg Patient Weight 06/24/16 06:59 Weight 76 kg - Constitutional General appearance: no average body habitus, cooperative, disheveled, no mild distress, no morbidly obese, no acute distress, no obese, no severe distress, no thin - EENT Eyes: no abnormal pupil, no anicteric sclerae, no disc margins sharp, no edentulous, no EOMI, no PERRLA, no fundus normal, no photophobia, no dentition normal, no poor dentition, no ptosis, no scleral icterus, normal appearance ENT: hard of hearing, no hearing grossly normal, no NA/AT, no normal oropharynx , no other, pharyngeal erythema, no thrush, no tonsillar exudates, no tonsillar swelling Ears: bilateral: normal - Neck Neck: no lymphadenopathy, normal ROM, no other, no rigidity, no stridor, no thyromegaly Carotids: bilateral: upstroke normal Thyroid: bilateral: normal size - Respiratory Respiratory: bilateral: CTA, diminished, rales - Cardiovascular Rhythm: regular Heart sounds: normal: S1, S2 Abnormal Heart Sounds: systolic murmur, S3 Gallop - Gastrointestinal General gastrointestinal: no absent bowel sounds, decreased bowel sounds, no distended, no hepatomegaly, no hyperactive bowel sounds, normal bowel sounds, no organomegaly, no rigid, no scaphoid, soft, no splenomegaly, no tenderness, no umbilical hernia, no ventral hernia - Integumentary Mild bruise on the left buttocks area from recent fall with no sign of fracture basically no large hematoma. Integumentary: no calor, no cellulitis, no cyanotic, no decreased turgor, no flushed, no jaundiced, normal, no normal turgor, pale, rash, no ulcer - Neurologic Neurologic: CNII-XII intact - Musculoskeletal Musculoskeletal: generalized weakness - Psychiatric Psychiatric: A&O x's 3, appropriate affect, no intact judgment & insight Results CBC & Chem 7: 06/23/16 14:45 06/23/16 14:45 Thrombosis Risk Factor Assmnt - DVT/VTE Prophylaxis DVT/VTE Prophylaxis: Pharmacologic Prophylaxis ordered, Mechanical Prophylaxis ordered - Choose All That Apply Any of the Below Risk Factors Present?: Yes Each Factor Represents 1 point: Medical pt on bed rest Other Risk Factors: Yes Each Risk Factor Represents 2 Points: Patient confined to bed Each Risk Factor Represents 3 Points: Age 75 years or older Thrombosis Risk Factor Assessment Total Risk Factor Score: 6 Thrombosis Risk Factor Assessment Level: High Risk Assessment and Plan Plan: 1 severe dizziness and lightheadedness: This is combination of urgent an emergency hypertension along with side effect of medication and try to exclude any other possibility at this point, patient might need to see neurology also her symptoms can be side effect medication which can be adjusted at this point. 2 severe emergency hypertension: Blood pressure has not been under control, patient has been on metoprolol only added labetalol along with hydroxyzine IV with not much effect so far but was start patient on clonidine and hydralazine orally and try to titrate medication to keep blood pressure under control. 3 ESBL with side effect of IV antibiotics: Patient be seen Dr. Horan will adjust her medication changes to different agent then ertapenem at this point and completed a full course repeat urine and culture when she is done. For CAD: Has been doing well up till now on her current medication. 5 dementia: With the simple MMS patient score 25 has been on Namenda and Aricept currently which can be adjusted to keep her on Aricept without Namenda if possible. 6 restless leg syndrome: Has been on heavy dose of Requip 2 mg at bedtime which can be cut down in half as well. 7 severe depression: Has been on Zoloft 200 mg daily. 8 recurrent episode of incontinence: Has been on Ditropan 5 mg twice a day. 9 GERD: Patient be placed on Pepcid 20 mg daily. 10 DVT prophylaxis: Patient will be on heparin subcutaneous. CODE STATUS: Full code. Expectation from this admission: Patient in the hospital for more than 2 nights.
[2016-06-24] MEDS ORDERED: MEMANTINE 10 MG TAB PO SCH (09:00)
[2016-06-24] MEDS ORDERED: SERTRALINE 100 MG TAB PO SCH (09:00)
[2016-06-24] MEDS: METOPROLOL SUCCINATE (ER) 25 MG TAB.ER.24H PO SCH (10:04)
[2016-06-24] MEDS: DONEPEZIL 10 MG TAB PO SCH (10:04)
[2016-06-24] MEDS: OXYBUTYNIN CHLORIDE 5 MG TAB PO SCH ×2 (10:05→21:46)
[2016-06-24] MEDS: hydrALAZINE HCL 50 MG TAB PO SCH ×3 (10:50→23:44)
[2016-06-24] MEDS: MECLIZINE 12.5 MG TAB PO SCH (11:34)
[2016-06-24] MEDS: SODIUM CHLORIDE 0.9% 1,000 ML IV SCH (13:11)
[2016-06-24] MEDS: ACETAMINOPHEN TAB 325 MG TAB PO PRN (13:30)
--- NOTE | 2016-06-24 13:34 | P.CONS ---
History of Present Illness - Reason for Consult Consult date: 06/24/16 ESBL E. coli urinary tract infection June 10 - History of Present Illness This is a 75-year-old female. She gives history that she had a cough that was severe and nonstop for 3 days and she Contacted Dr. Kendrick's office but she could not get in and they told her to come into the emergency center. She presented to [facility] emergency center with complaints of cough. Her white count was 5.0, urinalysis cloudy, blood trace, nitrate positive, leukoesterase large, urine WBC 167, bacteria moderate. Chest x-ray showed no acute abnormality. She was discharged on ciprofloxacin for 5 days. She states she then received a phone call a day and half later and she was put on a different type of medication. After that, she got a call from Dr. Kendrick and was instructed to go to the [facility] every day for 7 days to receive IV antibiotics. This was ertapenem. She states the first night after she started the ertapenem, she developed dizziness. She did have some of this before but it was much worse and it had previously been alleviated by adjusting her medications. She also states that she has urgent incontinence of urine and stool since she was started on ertapenem. She states the dizziness has worsened. She received a total of 4 doses of IV ertapenem. Patient then states that she was up to get to the bathroom in the middle of the night and only had to walk 4 feet. She sat on the edge of the bed to make sure she wasn' t dizzy and then started walking towards the bathroom and suddenly hit her and she ended up hitting the door frame, hit her head on the cabinet and landed with her left buttocks/lumbar onto a wastebasket. She then came back to [facility] emergency center due to the dizziness and due to back pain where she landed on the wastebasket. CAT scan of the brain showed age -related atrophy and chronic small vessel ischemic change without acute intracranial process. CAT scan of the cervical spine shows no evidence of acute fracture or subluxation of the cervical spine. X-ray of the lumbar spine showed degenerative change with no acute osseous lesion. Sacral x-ray shows no acute osseous lesion. Degenerative change. Findings suggestive of osteitis pupils. Patient has been admitted to the [facility] and medications adjusted. Patient is complaining of headache and pain to her left buttocks and lumbar area where she has significant bruising. She states she has had several episodes of diarrhea yesterday and she thinks only a little bit today. She has had decreased appetite which has not been new. She denies having any fever or chills. She denies any burning or pain with urination. She continues to have urgency and incontinence of urine and stool. Her cough has resolved. Review of Systems All systems: negative Constitutional: Denies chills, Denies fever Eyes: denies blurred vision, denies pain Ears, nose, mouth and throat: Reports vertigo, Denies headache, Denies sore throat Cardiovascular: Denies chest pain, Denies shortness of breath Respiratory: Denies cough Gastrointestinal: Reports diarrhea, Denies abdominal pain, Denies nausea, Denies vomiting Genitourinary: Reports urge incontinence, Reports urgency, Denies dysuria, Denies hematuria Musculoskeletal: Denies myalgias Integumentary: Denies pruritus, Denies rash Neurological: Denies numbness, Denies weakness Psychiatric: Denies anxiety, Denies depression Endocrine: Denies fatigue, Denies weight change Past Medical History Past Medical History: Coronary Artery Disease (CAD), Dementia, Fibromyalgia Additional Past Medical History / Comment(s): arthritis, fibromyalgia, degenerative disc disease in the lumbar spine History of Any Multi-Drug Resistant Organisms: ESBL Year Discovered:: 06/10/16 ESBL E.coli MDRO Source:: Urine Past Surgical History: Appendectomy, Heart Catheterization With Stent, Hysterectomy, Orthopedic Surgery Additional Past Surgical History / Comment(s): right hip replacement, left cataract removal and intraocular lens implants, right elbow shoulder Past Anesthesia/Blood Transfusion Reactions: No Reported Reaction Date of Last Stent Placement:: 2004 Past Psychological History: No Psychological Hx Reported Smoking Status: Never smoker Past Alcohol Use History: None Reported Additional Past Alcohol Use History / Comment(s): Patient is a lifelong nonsmoker. No illicit drug use. She lives at home with her and 2 cats. 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 Past Drug Use History: None Reported Medications and Allergies Home Medications Medication Instructions Recorded Confirmed Type Donepezil HCl 23 mg PO DAILY 06/21/16 06/23/16 History Metoprolol Succinate (ER) [Toprol 25 mg PO DAILY 06/21/16 06/23/16 History XL] Oxybutynin Chloride [Ditropan] 5 mg PO BID 06/21/16 06/23/16 History Latanoprost [Xalatan 0.005%] 1 drop BOTH EYES HS 06/23/16 06/23/16 History Allergies Allergy/AdvReac Type Severity Reaction Status Date / Time erythromycin base Allergy Unknown Verified 06/23/16 22:09 Penicillins Allergy Unknown Verified 06/23/16 22:09 Sulfa (Sulfonamide Allergy Unknown Verified 06/23/16 22:09 Antibiotics) tetanus and diphtheria Allergy Unknown Verified 06/23/16 22:09 toxoids [tetanus & diphtheria toxoids] Physical Exam Vitals: Vital Signs Temp Pulse Pulse Resp BP BP Pulse Ox 06/24/16 07:00 97.4 F L 62 20 116/66 97 06/23/16 22:17 96.9 F L 63 20 145/65 95 06/23/16 21:34 98.2 F 62 18 153/67 97 06/23/16 20:36 65 18 183/79 98 06/23/16 20:09 68 18 175/105 97 06/23/16 19:35 69 18 164/70 97 06/23/16 19:02 62 18 213/79 98 06/23/16 18:05 60 18 219/89 98 06/23/16 17:11 57 L 18 202/89 98 Intake and Output 06/23/16 06/24/16 06/24/16 22:59 06:59 14:59 Intake Total 200 0 200 Balance 200 0 200 Intake: Oral 200 0 200 Other: Voiding Method Diaper # Voids 1 Weight 76 kg Gen: This is a 75-year-old female. She is lying in bed and appears to be in no acute distress. HEENT: Head is atraumatic, normocephalic. Pupils equal, round. Sclerae is anicteric. conjunctiva pink. Mucous membranes of the mouth are moist. NECK: Supple. No JVD. No lymphadenopathy. No thyromegaly. LUNGS: Clear to auscultation. No wheezes or rhonchi. No intercostal retractions. HEART: Regular rate and rhythm. No murmur. ABDOMEN: Soft. Bowel sounds are present. No masses. No tenderness. large ecchymotic area to the left buttocks and sacral area. EXTREMITIES: No pedal edema. No calf tenderness. dorsalis pedis +2 bilaterally. NEUROLOGICAL: Patient is awake, alert and oriented x3. Cranial nerves 2 through 12 are grossly intact. Results Results: Laboratory Results WBC 7.4 k/uL (3.8-10.6) 06/23/16 14:45 RBC 5.12 m/uL (3.80-5.40) 06/23/16 14:45 Hgb 13.4 gm/dL (11.4-16.0) 06/23/16 14:45 Hct 41.0 % (34.0-46.0) 06/23/16 14:45 MCV 80.0 fL (80.0-100.0) 06/23/16 14:45 MCH 26.1 pg (25.0-35.0) 06/23/16 14:45 MCHC 32.7 g/dL (31.0-37.0) 06/23/16 14:45 RDW 15.4 % (11.5-15.5) 06/23/16 14:45 Plt Count 158 k/uL (150-450) D 06/23/16 14:45 Neutrophils % 63 % 06/23/16 14:45 Lymphocytes % 30 % 06/23/16 14:45 Monocytes % 3 % 06/23/16 14:45 Eosinophils % 2 % 06/23/16 14:45 Basophils % 1 % 06/23/16 14:45 Neutrophils # 4.7 k/uL (1.3-7.7) 06/23/16 14:45 Lymphocytes # 2.2 k/uL (1.0-4.8) 06/23/16 14:45 Monocytes # 0.3 k/uL (0-1.0) 06/23/16 14:45 Eosinophils # 0.1 k/uL (0-0.7) 06/23/16 14:45 Basophils # 0.1 k/uL (0-0.2) 06/23/16 14:45 PT 11.3 sec (9.0-12.0) 06/23/16 14:45 INR 1.1 (<1.1) 06/23/16 14:45 Sodium 143 mmol/L (137-145) 06/23/16 14:45 Potassium 3.7 mmol/L (3.5-5.1) 06/23/16 14:45 Chloride 103 mmol/L (98-107) 06/23/16 14:45 Carbon Dioxide 27 mmol/L (22-30) 06/23/16 14:45 Anion Gap 13 mmol/L 06/23/16 14:45 BUN 10 mg/dL (7-17) 06/23/16 14:45 Creatinine 0.62 mg/dL (0.52-1.04) 06/23/16 14:45 Est GFR (MDRD) Af Amer >60 (>60 ml/min/1.73 sqM) 06/23/16 14:45 Est GFR (MDRD) Non-Af >60 (>60 ml/min/1.73 sqM) 06/23/16 14:45 Glucose 102 mg/dL (74-99) H 06/23/16 14:45 POC Glucose (mg/dL) 98 mg/dL (75-99) 06/23/16 15:01 POC Glu Forklift Technician ID Ericka Mckeon 06/23/16 15:01 Plasma Lactic Acid Gal 1.7 mmol/L (0.7-2.0) 06/23/16 14:45 Calcium 9.0 mg/dL (8.4-10.2) 06/23/16 14:45 Total Bilirubin 0.6 mg/dL (0.2-1.3) 06/23/16 14:45 AST 30 U/L (14-36) 06/23/16 14:45 ALT 25 U/L (9-52) 06/23/16 14:45 Alkaline Phosphatase 101 U/L (38-126) 06/23/16 14:45 Troponin I <0.012 ng/mL (0.000-0.034) 06/23/16 14:45 Total Protein 7.0 g/dL (6.3-8.2) 06/23/16 14:45 Albumin 4.1 g/dL (3.5-5.0) 06/23/16 14:45 Urine Color Colorless 06/23/16 16:00 Urine Appearance Clear (Clear) 06/23/16 16:00 Urine pH 7.5 (5.0-8.0) 06/23/16 16:00 Ur Specific [place] 1.003 (1.001-1.035) 06/23/16 16:00 Urine Protein Negative (Negative) 06/23/16 16:00 Urine Glucose (UA) Negative (Negative) 06/23/16 16:00 Urine Ketones Negative (Negative) 06/23/16 16:00 Urine Blood Negative (Negative) 06/23/16 16:00 Urine Nitrite Negative (Negative) 06/23/16 16:00 Urine Bilirubin Negative (Negative) 06/23/16 16:00 Urine Urobilinogen <2.0 mg/dL (<2.0) 06/23/16 16:00 Ur Leukocyte Esterase Negative (Negative) 06/23/16 16:00 Urine Opiates Screen Not Detected (NotDetected) 06/23/16 16:00 Ur Oxycodone Screen Not Detected (NotDetected) 06/23/16 16:00 Urine Methadone Screen Not Detected (NotDetected) 06/23/16 16:00 Ur Propoxyphene Screen Not Detected (NotDetected) 06/23/16 16:00 Ur Barbiturates Screen Not Detected (NotDetected) 06/23/16 16:00 U Tricyclic Antidepress Not Detected (NotDetected) 06/23/16 16:00 Ur Phencyclidine Scrn Not Detected (NotDetected) 06/23/16 16:00 Ur Amphetamines Screen Not Detected (NotDetected) 06/23/16 16:00 U Methamphetamines Scrn Not Detected (NotDetected) 06/23/16 16:00 U Benzodiazepines Scrn Not Detected (NotDetected) 06/23/16 16:00 Urine Cocaine Screen Not Detected (NotDetected) 06/23/16 16:00 U Marijuana (THC) Screen Not Detected (NotDetected) 06/23/16 16:00 CBC & Chem 7: 06/23/16 14:45 06/23/16 14:45 Assessment and Plan Plan: This is a 75-year-old female who initially presented to [facility] emergency center on June 10 for severe cough and was found to have a severely abnormal urinalysis. She initially was placed on ciprofloxacin and then received a call and started on a second type of antibiotic. She was then called by her primary care physician, Dr. Kendrick, and placed on ertapenem for a seven-day course for ESBL E. coli. She completed the 4 days and feels that since she started the ertapenem she has had increased dizziness along with incontinence of urine and stool. No further ertapenem will be utilized. Patient presented back to [facility] emergency center after a fall at home from dizziness. Medications have been adjusted. Physical therapy is to work with the patient. Continue supportive care. Further recommendations as patient progresses. The above dictated assessment and findings were discussed with Dr. Horan. The impression and plan of care have been directed as dictated. Mari Chang nurse practitioner acting as scribe for Dr. Horan. Time with Patient: Greater than 30
--- NOTE | 2016-06-24 13:39 | P.PN ---
Subjective 75-year-old female one of Dr. Kendrick's patient with past medical history of CAD post angioplasty and stent placement, history of fibromyalgia, recurrent UTI who was apparently was [facility] emergency department 2 weeks ago for vague symptoms consistent with mild cough and URI symptoms with dizziness and lightheadedness her urine culture surprisingly came back positive for ESBL patient was called and scheduled to have an IV antibiotic with ertapenem which has been done for the last few days as an outpatient in the hospital infusion center. Patient has not been feeling well since she started her antibiotics according to her has been having more dizziness lightheadedness significant abnormal balance and gait and significantly elevated blood pressure with urgent hypertension. Ended up coming to demurs department today for evaluation found to be quite lightheaded dizzy with abnormal gait also found to have emergency hypertension with blood pressure running about 200 not control currently. Patient was hospitalized after full workup including neck x-ray with C-spine along with CT of the brain and the coccyx bone came back with no major fracture. Also patient probably going through quite bed side effect of medication been on few agent can cause lightheadedness and dizziness from her Namenda, Aricept, metoprolol, that Ditropan, record on Zoloft. Patient be hospitalized for the above problem. 06/24:hydralazine was started due to hypertension. Medications were adjusted to decrease Zoloft in half to 100 mg daily,Requip decreased to half to 1 mg daily and Namenda was discontinued. Consult added for Dr. Horan regarding recent treatment for ESBL E. coli urinary tract infection. Objective - Vital Signs Vital signs: Vital Signs Temp 97.4 F L 06/24/16 07:00 Pulse 62 06/24/16 07:00 Resp 20 06/24/16 07:00 BP 116/66 06/24/16 07:00 Pulse Ox 97 06/24/16 07:00 Intake & Output 06/23/16 06/24/16 06/24/16 18:59 06:59 18:59 Intake Total 200 Balance 200 Weight 76 kg Intake: Oral 200 Other: Voiding Method Diaper # Voids 1 - Exam General appearance: no average body habitus, cooperative, disheveled, no mild distress, no morbidly obese, no acute distress, no obese, no severe distress, no thin - EENT Eyes: no abnormal pupil, no anicteric sclerae, no disc margins sharp, no edentulous, no EOMI, no PERRLA, no fundus normal, no photophobia, no dentition normal, no poor dentition, no ptosis, no scleral icterus, normal appearance ENT: hard of hearing, no hearing grossly normal, no NA/AT, no normal oropharynx , no other, pharyngeal erythema, no thrush, no tonsillar exudates, no tonsillar swelling Ears: bilateral: normal - Neck Neck: no lymphadenopathy, normal ROM, no other, no rigidity, no stridor, no thyromegaly Carotids: bilateral: upstroke normal Thyroid: bilateral: normal size - Respiratory Respiratory: bilateral: CTA, diminished, rales - Cardiovascular Rhythm: regular Heart sounds: normal: S1, S2 Abnormal Heart Sounds: systolic murmur, S3 Gallop - Gastrointestinal General gastrointestinal: no absent bowel sounds, decreased bowel sounds, no distended, no hepatomegaly, no hyperactive bowel sounds, normal bowel sounds, no organomegaly, no rigid, no scaphoid, soft, no splenomegaly, no tenderness, no umbilical hernia, no ventral hernia - Integumentary Mild bruise on the left buttocks area from recent fall with no sign of fracture basically no large hematoma. Integumentary: no calor, no cellulitis, no cyanotic, no decreased turgor, no flushed, no jaundiced, normal, no normal turgor, pale, rash, no ulcer - Neurologic Neurologic: CNII-XII intact - Musculoskeletal Musculoskeletal: generalized weakness - Psychiatric Psychiatric: A&O x's 3, appropriate affect, no intact judgment & insight - Labs CBC & Chem 7: 06/23/16 14:45 06/23/16 14:45 Assessment and Plan Plan: 1 severe dizziness and lightheadedness: This is combination of urgent an emergency hypertension along with side effect of medication and try to exclude any other possibility at this point, patient might need to see neurology also her symptoms can be side effect medication which can be adjusted at this point. 2 severe emergency hypertension: Blood pressure has not been under control, patient has been on metoprolol only added labetalol along with hydroxyzine IV with not much effect so far but was start patient on clonidine and hydralazine orally and try to titrate medication to keep blood pressure under control. 3 ESBL E. coli urinary tract infectionwith side effect of IV antibiotics: consult with Dr. Horan For CAD: Has been doing well up till now on her current medication. 5 dementia: With the simple MMS patient score 25 has been on Namenda and Aricept currently which can be adjusted to keep her on Aricept without Namenda if possible. Namenda discontinued. 6 restless leg syndrome: Has been on heavy dose of Requip 2 mg at bedtime which can be cut down in half as well. 7 severe depression: Has been on Zoloft 100 mg daily. 8 recurrent episode of incontinence: Has been on Ditropan 5 mg twice a day. 9 GERD: Patient be placed on Pepcid 20 mg daily. 10 DVT prophylaxis: Patient will be on heparin subcutaneous. CODE STATUS: Full code. Discharge plan: most likely home. Physical therapy evaluation ordered. Impression and plan of care have been directed as dictated by the signing physician. Mari Chang nurse practitioner acting as scribe for signing physician. Time with Patient: Greater than 30
[2016-06-24] MEDS ORDERED: LATANOPROST 0.005% OPHTH DROPS 2.5 ML BTL BOTH EYES SCH (21:00)
--- NOTE | 2016-06-24 22:07 | P.CON ---
Consult Note - . Consult date: 06/24/16 Assessment/Plan:: This is a 75-year-old female. She gives history that she had a cough that was severe and nonstop for 3 days and she Contacted Dr. Kendrick's office but she could not get in and they told her to come into the emergency center. She presented to [facility] emergency center with complaints of cough. Her white count was 5.0, urinalysis cloudy, blood trace, nitrate positive, leukoesterase large, urine WBC 167, bacteria moderate. Chest x-ray showed no acute abnormality. She was discharged on ciprofloxacin for 5 days. She states she then received a phone call a day and half later and she was put on a different type of medication. After that, she got a call from Dr. Kendrick and was instructed to go to the [facility] every day for 7 days to receive IV antibiotics. This was ertapenem. She states the first night after she started the ertapenem, she developed dizziness. She did have some of this before but it was much worse and it had previously been alleviated by adjusting her medications. She also states that she has urgent incontinence of urine and stool since she was started on ertapenem. She states the dizziness has worsened. She received a total of 4 doses of IV ertapenem. Patient then states that she was up to get to the bathroom in the middle of the night and only had to walk 4 feet. She sat on the edge of the bed to make sure she wasn' t dizzy and then started walking towards the bathroom and suddenly hit her and she ended up hitting the door frame, hit her head on the cabinet and landed with her left buttocks/lumbar onto a wastebasket. She then came back to [facility] emergency center due to the dizziness and due to back pain where she landed on the wastebasket. CAT scan of the brain showed age -related atrophy and chronic small vessel ischemic change without acute intracranial process. CAT scan of the cervical spine shows no evidence of acute fracture or subluxation of the cervical spine. X-ray of the lumbar spine showed degenerative change with no acute osseous lesion. Sacral x-ray shows no acute osseous lesion. Degenerative change. Findings suggestive of osteitis pupils. Patient has been admitted to the [facility] floor and medications adjusted. Patient is complaining of headache and pain to her left buttocks and lumbar area where she has significant bruising. She states she has had several episodes of diarrhea yesterday and she thinks only a little bit today. She has had decreased appetite which has not been new. She denies having any fever or chills. She denies any burning or pain with urination. She continues to have urgency and incontinence of urine and stool. Her cough has resolved. Please see the consult note as dictated by nurse practitioner Mrs. Mari Chang. This pleasant elderly woman who does have a history of early dementia had developed a urinary infection. He was treated with ertapenem as an appropriate therapy for her ESBL E. coli infection. Rapidly with the start of the antibiotic she started to have central nervous system side effects. The carbapenem antibiotics to have significant FUR GLOSSER toxicity and she may be a greater risk because of her underlying dementia. At this time her urinalysis and culture are negative. She's having no significant urinary symptoms. Thus, we will be able to discontinue further antibiotic therapy for the urinary tract. No further ertapenem will be utilized. We'll expect in the next 24 hours or so that the antibiotic should wash out effectively from her central nervous system and she should hopefully regain her baseline status.. Is feeling considerably better this evening. Her equipment will be given at nighttime to prevent significant relapse of her restless leg syndrome that she is very worried will occur this evening. I agree with evaluation, assessment and plan as dictated by nurse practitioner Mrs. Mari Chang
[2016-06-25] MEDS: ACETAMINOPHEN TAB 325 MG TAB PO PRN (06:21)
[2016-06-25 08:08] VITALS: BP 182/89; PULSE 52; TEMP 96.5
[2016-06-25] MEDS: METOPROLOL SUCCINATE (ER) 25 MG TAB.ER.24H PO SCH (08:21)
[2016-06-25] MEDS: OXYBUTYNIN CHLORIDE 5 MG TAB PO SCH (08:21)
[2016-06-25] MEDS: hydrALAZINE HCL 50 MG TAB PO SCH (08:21)
[2016-06-25] MEDS: SODIUM CHLORIDE 0.9% 1,000 ML IV SCH (08:21)
[2016-06-25] MEDS: DONEPEZIL 10 MG TAB PO SCH (08:21)
[2016-06-25] MEDS: MECLIZINE 12.5 MG TAB PO SCH (08:21)
[2016-06-25] MEDS ORDERED: SERTRALINE 100 MG TAB PO SCH (09:00)
--- NOTE | 2016-06-25 15:56 | P.DS ---
Providers Date of admission: 06/23/16 16:24 Expected date of discharge: 06/25/16 Attending physician: Katlyn Kendrick Consults: 06/24/16 12:12 Consult Physician Routine Consulting Provider: Jame Horan Consult Reason/Comments: UTI 06/10 ESBL Ecoli was on Ertapenem Do you want consulting provider notified?: Yes Primary care physician: Katlyn Kendrick Hospital Course: 75-year-old female one of Dr. Kendrick's patient with past medical history of CAD post angioplasty and stent placement, history of fibromyalgia, recurrent UTI who was apparently was knee emergency department 2 weeks ago for vague symptoms consistent with mild cough and URI symptoms with dizziness and lightheadedness her urine culture surprisingly came back positive for ESBL patient was called and scheduled to have an IV antibiotic with ertapenem which has been done for the last few days as an outpatient in the hospital infusion center. Patient has not been feeling well since she started her antibiotics according to her has been having more dizziness lightheadedness significant abnormal balance and gait and significantly elevated blood pressure with urgent hypertension. Ended up coming to demurs department today for evaluation found to be quite lightheaded dizzy with abnormal gait also found to have emergency hypertension with blood pressure running about 200 not control currently. Patient was hospitalized after full workup including neck x-ray with C-spine along with CT of the brain and the coccyx bone came back with no major fracture. Also patient probably going through quite bed side effect of medication been on few agent can cause lightheadedness and dizziness from her Namenda, Aricept, metoprolol, that Ditropan, record on Zoloft. Patient be hospitalized for the above problem. 06/24:hydralazine was started due to hypertension. Medications were adjusted to decrease Zoloft in half to 100 mg daily,Requip decreased to half to 1 mg daily and Namenda was discontinued. Consult added for Dr. Horan regarding recent treatment for ESBL E. coli urinary tract infection. 06/25: Patient has been evaluated by Dr. Horan was no need for any further ertapenem or antibiotics. Patient is feeling improved with the current medication changes. Patient will be discharged home today in stable condition. Discharge diagnoses: 1 severe dizziness and lightheadedness: This is combination of urgent an emergency hypertension along with side effect of medication 2 severe emergency hypertension 3 ESBL E. coli urinary tract infection with side effect of IV antibiotics 4 CAD 5 dementia, vascular 6 restless leg syndrome 7 severe depression recurrent 8 recurrent episode of incontinence 9 GERD. Discharge plan: home. Impression and plan of care have been directed as dictated by the signing physician. Mari Chang nurse practitioner acting as scribe for signing physician. Patient Condition at Discharge: Good Plan - Discharge Summary New Discharge Prescriptions: Meclizine [Antivert] 12.5 mg PO DAILY #60 tab hydrALAZINE HCL [Apresoline] 50 mg PO TID #90 tab rOPINIRole HCL [Requip] 2 mg PO DAILY #30 tablet Discharge Medication List Donepezil HCl 23 mg PO DAILY 06/21/16 [History] Metoprolol Succinate (ER) [Toprol XL] 25 mg PO DAILY 06/21/16 [History] Oxybutynin Chloride [Ditropan] 5 mg PO BID 06/21/16 [History] Latanoprost [Xalatan 0.005%] 1 drop BOTH EYES HS 06/23/16 [History] Meclizine [Antivert] 12.5 mg PO DAILY #60 tab 06/25/16 [Rx] Sertraline HCl [Zoloft] 100 mg PO DAILY #0 06/25/16 [Rx] hydrALAZINE HCL [Apresoline] 50 mg PO TID #90 tab 06/25/16 [Rx] rOPINIRole HCL [Requip] 2 mg PO DAILY #30 tablet 06/25/16 [Rx] Follow up Appointment(s)/Referral(s): Katlyn Kendrick MD [Primary Care Provider] - 07/07/16 4:45 pm Patient Instructions/Handouts: Urinary Tract Infection in Women (DC) Activity/Diet/Wound Care/Special Instructions: Low fat, low salt diet. Limit activity until follow up with dr. Fowler Disposition: HOME SELF-CARE
== END 2016-06-25 15:44 | disposition home or self-care (01) | DRG 305 ==
LOC: EC 12:02 → 4MS4W 16:24
PROVIDERS: ADMIT Internal Medicine; ATTEND Internal Medicine
DX: I16.1 Hypertensive emergency (principal); N39.0 Urinary tract infection, site not specified; F01.50 Vascular dementia, unspecified severity, without behavioral disturbance, psychotic disturbance, mood disturbance, and anxiety; Z16.12 Extended spectrum beta lactamase (ESBL) resistance; B96.20 Unspecified Escherichia coli [E. coli] as the cause of diseases classified elsewhere; I10 Essential (primary) hypertension; I25.10 Atherosclerotic heart disease of native coronary artery without angina pectoris; M51.36 Other intervertebral disc degeneration, lumbar region; M19.91 Primary osteoarthritis, unspecified site; M79.7 Fibromyalgia; G25.81 Restless legs syndrome; F32.9 Major depressive disorder, single episode, unspecified; R26.9 Unspecified abnormalities of gait and mobility; R32 Unspecified urinary incontinence; K21.9 Gastro-esophageal reflux disease without esophagitis; Z16.24 Resistance to multiple antibiotics; Z95.5 Presence of coronary angioplasty implant and graft; Z90.710 Acquired absence of both cervix and uterus; Z98.42 Cataract extraction status, left eye; Z96.1 Presence of intraocular lens; Z96.641 Presence of right artificial hip joint; Z87.440 Personal history of urinary (tract) infections; Z79.899 Other long term (current) drug therapy
CPT/HCPCS: 36415; 70450; 72110; 72125; 72220; 80053; 80306; 81003; 83605; 84484; 85025; 85610; 93005; 96360; 96365; 96375; 96376; 99285

== ENCOUNTER 2016-10-18 20:21 | Observation (INO) | payer MEDICARE, OTHER ==
[2016-10-18] MEDS ORDERED: SODIUM CHLORIDE 0.9% 500 ML IV STA (21:58)
[2016-10-18] MEDS ORDERED: ASPIRIN 81 MG PO STA (21:58)
--- NOTE | 2016-10-18 22:20 | ED ---
General Adult HPI - General Chief complaint: Chest Pain Stated complaint: severe pain right side neck to hand Time Seen by Provider: 10/18/16 21:51 Source: patient, RN notes reviewed Mode of arrival: wheelchair Limitations: no limitations - History of Present Illness Initial comments: 76-year-old male presents to the emergency Department chief complaint of left arm pain. Patient states that today she's had shoulder pain left arm following the exam. Patient is if she moves that shoulder hurts to touch. Patient states there is no radiation into the chest. Patient denies any shortness of breath with this. Patient states that she does have chronic right shoulder pain but this is different. Patient denies any falls traumas range threes. Patient's states that the pain just continues today so she thought that she should be seen. Patient denies any recent fever, chills, shortness of breath, chest pain, back pain, abdominal pain, nausea vomiting, numbness or tingling, dysuria or hematuria, constipation or diarrhea, headaches or visual changes, or any other current symptoms. - Related Data Home Medications Medication Instructions Recorded Confirmed Donepezil HCl 23 mg PO DAILY 06/21/16 10/18/16 Metoprolol Succinate (ER) [Toprol 25 mg PO DAILY 06/21/16 10/18/16 XL] Oxybutynin Chloride [Ditropan] 5 mg PO BID 06/21/16 10/18/16 Latanoprost [Xalatan 0.005%] 1 drop BOTH EYES HS 06/23/16 10/18/16 Previous Rx's Medication Instructions Recorded Meclizine [Antivert] 12.5 mg PO DAILY #60 tab 06/25/16 Sertraline HCl [Zoloft] 100 mg PO DAILY #0 06/25/16 hydrALAZINE HCL [Apresoline] 50 mg PO TID #90 tab 06/25/16 rOPINIRole HCL [Requip] 2 mg PO DAILY #30 tablet 06/25/16 Allergies Allergy/AdvReac Type Severity Reaction Status Date / Time erythromycin base Allergy Unknown Verified 10/18/16 20:58 Penicillins Allergy Unknown Verified 10/18/16 20:58 Sulfa (Sulfonamide Allergy Unknown Verified 10/18/16 20:58 Antibiotics) tetanus and diphtheria Allergy Unknown Verified 10/18/16 20:58 toxoids [tetanus & diphtheria toxoids] Review of Systems ROS Statement: Those systems with pertinent positive or pertinent negative responses have been documented in the HPI. ROS Other: All systems not noted in ROS Statement are negative. Past Medical History Past Medical History: Coronary Artery Disease (CAD), Dementia, Fibromyalgia Additional Past Medical History / Comment(s): arthritis, fibromyalgia, degenerative disc disease in the lumbar spine History of Any Multi-Drug Resistant Organisms: ESBL Date of last positivie culture/infection: 06/10/16 ESBL E.coli MDRO Source:: Urine Past Surgical History: Appendectomy, Heart Catheterization With Stent, Hysterectomy, Orthopedic Surgery Additional Past Surgical History / Comment(s): right hip replacement, left cataract removal and intraocular lens implants, right elbow shoulder Past Anesthesia/Blood Transfusion Reactions: No Reported Reaction Date of Last Stent Placement:: 2004 Past Psychological History: No Psychological Hx Reported Smoking Status: Never smoker Past Alcohol Use History: None Reported Past Drug Use History: None Reported General Exam - General Exam Comments Initial Comments: General: The patient is awake and alert, in no distress, and does not appear acutely ill. Eye: Pupils are equal, round and reactive to light, extra-ocular movements are intact; there is normal conjunctiva bilaterally. No signs of icterus. Ears, nose, mouth and throat: There are moist mucous membranes and no oral lesions. Neck: The neck is supple, there is tenderness to left lateral aspect of the neck. Cardiovascular: There is a regular rate and rhythm. No murmur, rub or gallop is appreciated. Respiratory: Lungs are clear to auscultation, respirations are non-labored, breath sounds are equal. No wheezes, stridor, rales, or rhonchi. Gastrointestinal: Soft, non-distended, non-tender abdomen without masses or organomegaly noted. There is no rebound or guarding present. No CVA tenderness. Bowel sounds are unremarkable. Back: There is no tenderness to palpation in the midline. There is tenderness posterior left shoulder blade. There is no obvious deformity. No rashes noted. Musculoskeletal: Normal ROM, diffuse tenderness along the left shoulder and upper arms. Minimal tenderness to the left hand. There is no pedal edema. There is no calf tenderness or swelling. Sensation intact. Pulses equal bilaterally 2+. Neurological: CN II-XII intact, There are no obvious motor or sensory deficits. Coordination appears grossly intact. Speech is normal. Skin: Skin is warm and dry and no rashes or lesions are noted. Psychiatric: Cooperative, appropriate mood & affect, normal judgment. Limitations: no limitations Course Vital Signs 10/18/16 10/18/16 20:53 22:27 Temperature 97.2 F L Pulse Rate 63 66 Respiratory 16 18 Rate Blood Pressure 163/74 163/70 O2 Sat by Pulse 97 99 Oximetry EKG Findings - EKG Comments: EKG Findings:: Sinus bradycardia, left ventricular hypertrophy with repolarization abnormality ventricular rate 56 GA interval 204 QRS duration 112. concern for ST depression on EKG Medical Decision Making - Medical Decision Making 76-year-old female presents with left shoulder pain that extends into the neck and down the arm. At this time due to the fact that it is worse with movement more suspicious of a hotel skeletal within the patient's history we will do a cardiac rule out for the patient. There is concern this could also be unstable angina. We will admit the patient at this and all questions have been answered. - Lab Data Result diagrams: 10/18/16 22:20 10/18/16 22:20 Lab Results 10/18/16 10/18/16 10/18/16 Range/Units 22:20 22:20 22:20 WBC 6.7 (3.8-10.6) k/uL RBC 5.04 (3.80-5.40) m/uL Hgb 13.5 (11.4-16.0) gm/dL Hct 40.1 (34.0-46.0) % MCV 79.7 L (80.0-100.0) fL MCH 26.8 (25.0-35.0) pg MCHC 33.7 (31.0-37.0) g/dL RDW 16.1 H (11.5-15.5) % Plt Count 143 L (150-450) k/uL Neutrophils % 60 % Lymphocytes % 30 % Monocytes % 5 % Eosinophils % 3 % Basophils % 1 % Neutrophils # 4.0 (1.3-7.7) k/uL Lymphocytes # 2.0 (1.0-4.8) k/uL Monocytes # 0.3 (0-1.0) k/uL Eosinophils # 0.2 (0-0.7) k/uL Basophils # 0.1 (0-0.2) k/uL Anisocytosis Slight PT (9.0-12.0) sec INR (<1.2) APTT (22.0-30.0) sec Sodium 141 (137-145) mmol/L Potassium 3.8 (3.5-5.1) mmol/L Chloride 106 (98-107) mmol/L Carbon Dioxide 23 (22-30) mmol/L Anion Gap 12 mmol/L BUN 10 (7-17) mg/dL Creatinine 0.70 (0.52-1.04) mg/dL Est GFR (MDRD) Af Amer >60 (>60 ml/min/1.73 sqM) Est GFR (MDRD) Non-Af >60 (>60 ml/min/1.73 sqM) Glucose 99 (74-99) mg/dL Calcium 9.4 (8.4-10.2) mg/dL Magnesium 2.0 (1.6-2.3) mg/dL Total Bilirubin 0.5 (0.2-1.3) mg/dL AST 32 (14-36) U/L ALT 38 (9-52) U/L Alkaline Phosphatase 93 (38-126) U/L Total Creatine Kinase 96 (30-135) U/L CK-MB (CK-2) 2.5 H* (0.0-2.4) ng/mL CK-MB (CK-2) Rel Index 2.6 Troponin I <0.012 (0.000-0.034) ng/mL Total Protein 6.5 (6.3-8.2) g/dL Albumin 4.0 (3.5-5.0) g/dL 10/18/16 Range/Units 22:20 WBC (3.8-10.6) k/uL RBC (3.80-5.40) m/uL Hgb (11.4-16.0) gm/dL Hct (34.0-46.0) % MCV (80.0-100.0) fL MCH (25.0-35.0) pg MCHC (31.0-37.0) g/dL RDW (11.5-15.5) % Plt Count (150-450) k/uL Neutrophils % % Lymphocytes % % Monocytes % % Eosinophils % % Basophils % % Neutrophils # (1.3-7.7) k/uL Lymphocytes # (1.0-4.8) k/uL Monocytes # (0-1.0) k/uL Eosinophils # (0-0.7) k/uL Basophils # (0-0.2) k/uL Anisocytosis PT 11.2 (9.0-12.0) sec INR 1.1 (<1.2) APTT 26.7 (22.0-30.0) sec Sodium (137-145) mmol/L Potassium (3.5-5.1) mmol/L Chloride (98-107) mmol/L Carbon Dioxide (22-30) mmol/L Anion Gap mmol/L BUN (7-17) mg/dL Creatinine (0.52-1.04) mg/dL Est GFR (MDRD) Af Amer (>60 ml/min/1.73 sqM) Est GFR (MDRD) Non-Af (>60 ml/min/1.73 sqM) Glucose (74-99) mg/dL Calcium (8.4-10.2) mg/dL Magnesium (1.6-2.3) mg/dL Total Bilirubin (0.2-1.3) mg/dL AST (14-36) U/L ALT (9-52) U/L Alkaline Phosphatase (38-126) U/L Total Creatine Kinase (30-135) U/L CK-MB (CK-2) (0.0-2.4) ng/mL CK-MB (CK-2) Rel Index Troponin I (0.000-0.034) ng/mL Total Protein (6.3-8.2) g/dL Albumin (3.5-5.0) g/dL - Radiology Data Radiology results: report reviewed, image reviewed Disposition Clinical Impression: Unstable angina, Degenerative disc disease, Left shoulder pain Disposition: ADMITTED IP TO THIS [facility] Condition: Stable Referrals: Katlyn Kendrick MD [Primary Care Provider] - 1-2 days Time of Disposition: 23:52 Decision Date: 10/18/16 Decision Time: 23:53
[2016-10-18 22:42] LABS: Anisocytosis Slight; Basophils # (A) 0.1 k/uL (0-0.2); Basophils % (A) 1 %; CH 26.7; CHCM 33.6; Eosinophils # (A) 0.2 k/uL (0-0.7); Eosinophils % (A) 3 %; HCT 40.1 % (34.0-46.0); HDW 2.77; HGB 13.5 gm/dL (11.4-16.0); Luc # (Auto) 0.12; Luc % (Auto) 2; Lymphocytes % (A) 30 %; MCH 26.8 pg (25.0-35.0); MCHC 33.7 g/dL (31.0-37.0); MCV 79.7 fL (80.0-100.0); Mean Platelet Volume 7.3; Monocytes # (A) 0.3 k/uL (0-1.0); Monocytes % (A) 5 %; Neutrophils % (A) 60 %; RBC 5.04 m/uL (3.80-5.40); RDW 16.1 % (11.5-15.5); WBC 6.7 k/uL (3.8-10.6); WBC (Perox) 6.51
[2016-10-18 22:50] LABS: INR 1.1 (<1.2); Partial Thromboplastin Time 26.7 sec (22.0-30.0); Prothrombin Time 11.2 sec (9.0-12.0)
[2016-10-18 22:57] LABS: ALT 38 U/L (9-52); AST 32 U/L (14-36); Alkaline Phosphatase 93 U/L (38-126); Anion Gap 12 mmol/L; Blood Urea Nitrogen 10 mg/dL (7-17); Calcium 9.4 mg/dL (8.4-10.2); Carbon Dioxide 23 mmol/L (22-30); Chloride 106 mmol/L (98-107); Creatine Kinase 96 U/L (30-135); Glucose 99 mg/dL (74-99); Non-African American GFR(MDRD) >60 (>60 ml/min/1.73 sqM); Potassium 3.8 mmol/L (3.5-5.1); Sodium 141 mmol/L (137-145); Total Bilirubin 0.5 mg/dL (0.2-1.3); Total Protein 6.5 g/dL (6.3-8.2)
[2016-10-18 23:08] LABS: Troponin I <0.012 ng/mL (0.000-0.034)
[2016-10-18 23:14] LABS: Creatine Kinase MB 2.5 ng/mL (0.0-2.4)
--- NOTE | 2016-10-18 23:33 | XR ---
EXAM: XR Chest, 2 Views CLINICAL HISTORY: Reason: Chest Pain TECHNIQUE: Frontal and lateral views of the chest. COMPARISON: 06/10/2016 FINDINGS: Lungs: Unremarkable. No consolidation. Pleural space: Unremarkable. No pneumothorax. Heart: Unremarkable. No cardiomegaly. Mediastinum: Unremarkable. Bones/joints: anterior wedge compression defect of the mid thoracic vertebral body appears worse, increased from 2 to 1.7 cm in maximal loss of height, on lateral view. Osteopenia. IMPRESSION: Clear lungs. Anterior wedge compression defect of the mid thoracic vertebral body appears worse, increased from 2 to 1.7 cm in maximal loss of height, on lateral view.
--- NOTE | 2016-10-18 23:35 | XR ---
EXAM: XR Left Shoulder Complete, 2 or More Views CLINICAL HISTORY: Reason: Pain TECHNIQUE: Two or more views of the left shoulder. COMPARISON: 02/27/14 FINDINGS: Bones/joints: Osteopenia. No acute fracture. No dislocation. Soft tissues: Unremarkable. IMPRESSION: No acute findings or substantial change.
--- NOTE | 2016-10-18 23:37 | XR ---
EXAM: XR Cervical Spine, single lateral CLINICAL HISTORY: Pain TECHNIQUE: lateral view of the cervical spine is received for interpretation. COMPARISON: 09/09/14 FINDINGS: Vertebrae: Osteopenia. No definite fracture. Normal alignment. Disc spaces: Moderate degenerative disc disease. Soft tissues: Unremarkable. IMPRESSION: Limited one lateral view of the cervical spine showing moderate degenerative disc disease, similar compared to prior study
[2016-10-18] MEDS ORDERED: KETOROLAC 30 MG/ML 1 ML VIAL IVP STA (23:44)
[2016-10-18] MEDS ORDERED: MORPHINE SULFATE 4 MG/ML SYRINGE IV STA (23:45)
[2016-10-18] MEDS ORDERED: HEPARIN SODIUM,PORCINE/D5W PMX 25,000 UNIT in DEXTROSE/WATER 1 500ML.BAG IV SCH (23:45)
[2016-10-18] MEDS ORDERED: HEPARIN SODIUM,PORCINE 5,000 UNIT/ML 1 ML VIAL IV ONE (23:53)
[2016-10-18] MEDS ORDERED: NITROGLYCERIN SL TABS 0.4 MG TAB SUBLINGUAL PRN (23:53)
[2016-10-19 01:32] VITALS: BMI 24.7
[2016-10-19 06:59] LABS: Creatine Kinase 43 U/L (30-135)
[2016-10-19 07:10] LABS: Creatine Kinase MB 2.1 ng/mL (0.0-2.4); Troponin I <0.012 ng/mL (0.000-0.034)
[2016-10-19 07:46] LABS: Cholesterol 139 mg/dL (<200); HDL Cholesterol 35 mg/dL (40-60)
[2016-10-19] MEDS: OXYBUTYNIN CHLORIDE 5 MG TAB PO SCH ×2 (09:01→20:29)
[2016-10-19] MEDS: hydrALAZINE HCL 50 MG TAB PO SCH ×3 (09:01→20:29)
[2016-10-19] MEDS: SERTRALINE 100 MG TAB PO SCH (09:01)
[2016-10-19] MEDS: METOPROLOL SUCCINATE (ER) 25 MG TAB.ER.24H PO SCH (09:02)
[2016-10-19] MEDS: DONEPEZIL 10 MG TAB PO SCH (09:02)
[2016-10-19] MEDS: ASPIRIN 325 MG TAB PO SCH (09:06)
--- NOTE | 2016-10-19 09:17 | P.CRDCN ---
History of Present Illness Consult date: 10/19/16 History of present illness: This 76-year-old female who claims that she had a silent heart attack about 12 years ago, comes to the hospital mainly with complaints of left arm and shoulder pain. She claims that the pain started around 3:00 in the morning. She applied to the Lidoderm patches to that area without much relief. Initially the pain was in the upper arm and subsequently spread to the lower arm and also to the neck area. The nature of the pain is variable. She denied any chest pain. She also complained of some nausea and diarrhea. Her EKGs did not reveal any acute changes. Her cardiac enzymes 2 are negative. Her symptoms are atypical for cardiac problems or angina. The possibility of cervical radiculopathy or shoulder related issues to be considered. I'll continue to follow her cardiac enzymes and EKGs. We'll also we'll obtain an echocardiogram Review of Systems As per the chart Past Medical History Past Medical History: Coronary Artery Disease (CAD), Dementia, Fibromyalgia Additional Past Medical History / Comment(s): arthritis, fibromyalgia, degenerative disc disease in the lumbar spine History of Any Multi-Drug Resistant Organisms: ESBL Date of last positivie culture/infection: 06/10/16 ESBL E.coli MDRO Source:: Urine Past Surgical History: Appendectomy, Heart Catheterization With Stent, Hysterectomy, Orthopedic Surgery Additional Past Surgical History / Comment(s): right hip replacement, left cataract removal and intraocular lens implants, right elbow shoulder Past Anesthesia/Blood Transfusion Reactions: No Reported Reaction Date of Last Stent Placement:: 2004 Past Psychological History: No Psychological Hx Reported Smoking Status: Never smoker Past Alcohol Use History: None Reported Additional Past Alcohol Use History / Comment(s): Patient is a lifelong nonsmoker. No illicit drug use. She lives at home with her and 2 cats. 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 Past Drug Use History: None Reported - Past Family History Father Family Medical History: Myocardial Infarction (DE) Mother Family Medical History: No Reported History Medications and Allergies Home Medications Medication Instructions Recorded Confirmed Type Donepezil HCl 23 mg PO DAILY 06/21/16 10/18/16 History Metoprolol Succinate (ER) [Toprol 25 mg PO DAILY 06/21/16 10/18/16 History XL] Oxybutynin Chloride [Ditropan] 5 mg PO BID 06/21/16 10/18/16 History Latanoprost [Xalatan 0.005%] 1 drop BOTH EYES HS 06/23/16 10/18/16 History Allergies Allergy/AdvReac Type Severity Reaction Status Date / Time erythromycin base Allergy Unknown Verified 10/18/16 20:58 Penicillins Allergy Unknown Verified 10/18/16 20:58 Sulfa (Sulfonamide Allergy Unknown Verified 10/18/16 20:58 Antibiotics) tetanus and diphtheria Allergy Unknown Verified 10/18/16 20:58 toxoids [tetanus & diphtheria toxoids] Physical Exam Vitals: Vital Signs Temp Pulse Pulse Resp BP BP Pulse Ox 10/19/16 04:00 96.9 F L 62 18 159/72 98 10/19/16 01:24 96.9 F L 68 18 165/79 98 10/19/16 01:23 98 10/19/16 01:05 96.9 F L 68 18 165/79 98 10/19/16 00:23 97.9 F 62 18 133/63 96 10/18/16 22:27 66 18 163/70 99 10/18/16 20:53 97.2 F L 63 16 163/74 97 Intake and Output 10/18/16 10/19/16 10/19/16 22:59 06:59 14:59 Other: # Voids 1 Weight 74.843 kg 67.3 kg GENERAL EXAM: Patient is alert and oriented and doesn't appear to be in any acute distress HEENT: Normocephalic. Normal reaction of pupils, equal size, normal range of extraocular motion. No erythema or exudates in the throat. NECK: No masses, no nuchal rigidity. CHEST: No chest wall deformity. LUNGS: Equal air entry with no crackles or wheeze. HEART: S1 and S2 normal with no audible mumurs or gallops. Regular rhythm, femorals equal on both sides.. ABDOMEN: No hepatosplenomegaly, normal bowel sounds, no guarding or rigidity. SKIN: No rashes CENTRAL NERVOUS SYSTEM: No focal deficits. EXTREMITIES: No cyanosis, clubbing or edema. Results 10/18/16 22:20 10/18/16 22:20 Cardiac Enzymes 10/18/16 10/18/16 10/19/16 Range/Units 22:20 22:20 06:07 AST 32 (14-36) U/L CK-MB (CK-2) 2.5 H* 2.1 (0.0-2.4) ng/mL Troponin I <0.012 <0.012 (0.000-0.034) ng/mL Coagulation 10/18/16 10/19/16 Range/Units 22:20 06:07 PT 11.2 (9.0-12.0) sec APTT 26.7 56.3 H (22.0-30.0) sec Lipids 10/19/16 Range/Units 06:07 Triglycerides 126 (<150) mg/dL Cholesterol 139 (<200) mg/dL HDL Cholesterol 35 L (40-60) mg/dL CBC 10/18/16 Range/Units 22:20 WBC 6.7 (3.8-10.6) k/uL RBC 5.04 (3.80-5.40) m/uL Hgb 13.5 (11.4-16.0) gm/dL Hct 40.1 (34.0-46.0) % Plt Count 143 L (150-450) k/uL Comprehensive Metabolic Panel 10/18/16 Range/Units 22:20 Sodium 141 (137-145) mmol/L Potassium 3.8 (3.5-5.1) mmol/L Chloride 106 (98-107) mmol/L Carbon Dioxide 23 (22-30) mmol/L BUN 10 (7-17) mg/dL Creatinine 0.70 (0.52-1.04) mg/dL Glucose 99 (74-99) mg/dL Calcium 9.4 (8.4-10.2) mg/dL AST 32 (14-36) U/L ALT 38 (9-52) U/L Alkaline Phosphatase 93 (38-126) U/L Total Protein 6.5 (6.3-8.2) g/dL Albumin 4.0 (3.5-5.0) g/dL Current Medications Generic Name Dose Route Start Last Admin Trade Name Freq PRN Reason Stop Dose Admin Aspirin 325 mg 10/19/16 09:00 10/19/16 09:06 Aspirin PO 325 mg DAILY RANJIT Administration Donepezil HCl 23 mg 10/19/16 09:00 10/19/16 09:02 Aricept PO 23 mg DAILY RANJIT Administration Hydralazine HCl 50 mg 10/19/16 09:00 10/19/16 09:01 Apresoline PO 50 mg TID RANJIT Administration Heparin Sodium/Dextrose 25,000 500 mls @ 17.96 mls/hr 10/18/16 23:45 00:20 unit/ IV Solution IV 12.02 units/kg/hr .Q24H RANJIT 18 mls/hr Protocol Administration 12 UNITS/KG/HR Latanoprost 1 drops 10/19/16 21:00 Xalatan 0.005% BOTH EYES HS RANJIT Meclizine HCl 12.5 mg 10/19/16 09:00 Antivert PO DAILY RANJIT Metoprolol Succinate 25 mg 10/19/16 09:00 10/19/16 09:02 Toprol Xl PO 25 mg DAILY RANJIT Administration Nitroglycerin 0.4 mg 10/18/16 23:53 Nitrostat SUBLINGUAL Q5M PRN Chest Pain Oxybutynin Chloride 5 mg 10/19/16 09:00 10/19/16 09:01 Ditropan PO 5 mg BID RANJIT Administration Ropinirole HCl 2 mg 10/19/16 09:00 10/19/16 09:01 Requip PO 2 mg DAILY RANJIT Administration Sertraline HCl 100 mg 10/19/16 09:00 10/19/16 09:01 Zoloft PO 100 mg DAILY RANJIT Administration Intake and Output 10/18/16 10/19/16 10/19/16 22:59 06:59 14:59 Other: # Voids 1 Weight 74.843 kg 67.3 kg 10/18/16 22:20 10/18/16 22:20 EKG Interpretations (text) Sinus rhythm Assessment and Plan (1) Degenerative disc disease Status: Acute (2) Left shoulder pain Status: Acute Plan: Her left arm pain is atypical and noncardiac. We'll continue monitoring her EKGs and enzymes. Echocardiogram will be done. May consider orthopedic consult
[2016-10-19 11:15] LABS: Creatine Kinase 34 U/L (30-135)
[2016-10-19 11:28] LABS: Creatine Kinase MB 1.6 ng/mL (0.0-2.4); Troponin I <0.012 ng/mL (0.000-0.034)
[2016-10-19] MEDS: methylPREDNISolone SOD SUCCI 40 MG/ML 1 ML VIAL IV SCH ×3 (12:08→23:29)
[2016-10-19] MEDS: GABAPENTIN 100 MG CAP PO SCH ×3 (12:09→20:29)
[2016-10-19] MEDS: MECLIZINE 12.5 MG TAB PO SCH (12:09)
--- NOTE | 2016-10-19 13:52 | P.HPIM ---
History of Present Illness H&P Date: 10/19/16 Chief Complaint: Left arm pain 75-year-old female one of Dr. Kendrick's patient with past medical history of CAD post angioplasty and stent placement, history of fibromyalgia, recurrent UTI, dementia who was seen in emergency room secondary to persistent left arm discomfort for the past 1 week, patient's pain radiates from the forearm up her arm up to the neck and the left side of the upper part of the chest, patient normally follows with Dr. Parsons cardiology. 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 Review of old records shows CAT scan of the cervical spine and brain performed 06/23/2016 shows scattered degenerative joint disease and spondylolisthesis, biapical scarring noted, patient did not have any previous evaluation with spine surgeon or no previous MRI imaging, no epidurals cervical steroid injections in the past Patient was subsequently seen by cardiology secondary to her underlying coronary issues, her symptoms are more consistent with cervical disc disease Review of Systems Constitutional: Reports as per HPI, Denies anorexia, Denies chills, Denies chronic headaches, Denies chronic pain, Denies daytime sleepiness, Denies fatigue, Denies fever, Denies lethargy, Denies malaise, Denies night sweats, Denies poor appetite, Denies sweats, Denies weakness, Denies weight gain, Denies weight loss Ears, nose, mouth and throat: Reports as per HPI, Denies ant. neck pain, Denies bleeding gums, Denies dental pain, Denies dysphagia, Denies epistaxis, Denies headache, Denies hoarseness, Denies mouth pain, Denies nasal congestion, Denies nasal discharge, Denies neck fullness/pressure, Denies neck lump, Denies nose pain, Denies odynophagia, Denies post-nasal drip, Denies sinus pain, Denies sinus pressure, Denies swelling in mouth, Denies swelling in throat, Denies sore throat, Denies vertigo, Denies voice changes Cardiovascular: Reports as per HPI, Denies chest pain, Denies claudication, Denies decreased exercise tolerance, Denies dyspnea on exertion, Denies edema, Denies high blood pressure, Denies irregular heart beat, Denies leg edema, Denies lightheadedness, Denies orthopnea, Denies palpitations, Denies paroxysmal nocturnal dyspnea, Denies phlebitis, Denies rapid heart beat, Denies shortness of breath, Denies syncope Respiratory: Reports as per HPI, Denies congestion, Denies cough, Denies cough with sputum, Denies dyspnea, Denies excessive sputum, Denies hemoptysis, Denies home oxygen, Denies pain, Denies pain on inspiration, Denies pleurisy, Denies respiratory infections, Denies sleep apnea, Denies snoring, Denies wheezing Gastrointestinal: Reports as per HPI, Denies abdominal pain, Denies belching, Denies bloating, Denies BRBPR, Denies change in bowel habits, Denies coffee ground emesis, Denies constipation, Denies diarrhea, Denies dyspepsia, Denies early satiety, Denies excessive gas, Denies heartburn, Denies hematemesis, Denies hematochezia, Denies indigestion, Denies jaundice, Denies lactose intolerance, Denies loss of appetite, Denies melena, Denies nausea, Denies vomiting Genitourinary: Reports as per HPI, Denies abnormal vaginal bleeding, Denies decreased libido, Denies difficulty conceiving, Denies difficulty voiding, Denies dysmenorrhea, Denies dyspareunia, Denies dysuria, Denies flank pain, Denies genital sores, Denies hematuria, Denies hot flashes, Denies incomplete emptying, Denies kidney stones, Denies menorrhagia, Denies mixed incontinence, Denies nocturia, Denies pelvic pain, Denies post void dribbling, Denies , Denies prolapse symptoms, Denies stress incontinence, Denies urge incontinence , Denies urgency, Denies urinary frequency, Denies vaginal discharge, Denies vaginal dryness, Denies vaginal itching, Denies vaginal odor Menstruation: Reports as per HPI, Reports postmenopausal, Denies amenorrhea, Denies amenorrhea on BC, Denies currently menstrual, Denies cycle < 21 days, Denies cycle > 35 days, Denies cycle variable, Denies menses 1-7 days, Denies menses 8 or > days, Denies menses variable, Denies period heavy, Denies period light, Denies period normal, Denies period spotting, Denies post hysterectomy, Denies premenarcheal Musculoskeletal: Reports as per HPI, Reports limitation of motion, Reports morning stiffness, Reports muscle weakness, Denies arm numbness/tingling, Denies atrophy, Denies fractures, Denies frequent falls, Denies gait dysfunction , Denies hot joints, Denies leg numbness/tingling, Denies loss of height, Denies low back pain, Denies muscle cramps, Denies myalgias, Denies neck pain, Denies neck stiffness, Denies prior amputations, Denies redness of joints, Denies shooting arm pain, Denies shooting leg pain Integumentary: Reports as per HPI Neurological: Reports as per HPI, Reports memory loss, Reports sensory deficit Psychiatric: Reports as per HPI, Denies anhedonia, Denies anxiety, Denies anxiety attacks, Denies change in appetite, Denies change in libido, Denies change in sleep habits, Denies confusion, Denies depression, Denies difficulty concentrating, Denies disorientation, Denies hallucinations, Denies hopelessness , Denies hypersomnia, Denies insomnia, Denies irritability, Denies memory loss, Denies mood swings, Denies paranoia, Denies sadness/tearfulness, Denies sleep disturbances, Denies suicidal ideation Endocrine: Reports as per HPI Hematologic/Lymphatic: Reports as per HPI Allergic/Immunologic: Reports as per HPI Past Medical History Past Medical History: Coronary Artery Disease (CAD), Dementia, Fibromyalgia Additional Past Medical History / Comment(s): arthritis, fibromyalgia, degenerative disc disease in the lumbar spine History of Any Multi-Drug Resistant Organisms: ESBL Date of last positivie culture/infection: 06/10/16 ESBL E.coli MDRO Source:: Urine Past Surgical History: Appendectomy, Heart Catheterization With Stent, Hysterectomy, Orthopedic Surgery Additional Past Surgical History / Comment(s): right hip replacement, left cataract removal and intraocular lens implants, right elbow shoulder Past Anesthesia/Blood Transfusion Reactions: No Reported Reaction Date of Last Stent Placement:: 2004 Past Psychological History: No Psychological Hx Reported Smoking Status: Never smoker Past Alcohol Use History: None Reported Additional Past Alcohol Use History / Comment(s): Patient is a lifelong nonsmoker. No illicit drug use. She lives at home with her and 2 cats. 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 Past Drug Use History: None Reported - Past Family History Father Family Medical History: Myocardial Infarction ([place]) Mother Family Medical History: No Reported History Brother(s) Family Medical History: Unable to Obtain Sister(s) Family Medical History: Unable to Obtain Daughter(s) History Unknown: Yes (One daughter has alcoholism and from complications) Son(s) Family Medical History: Unable to Obtain (No sons) Medications and Allergies Home Medications Medication Instructions Recorded Confirmed Type Metoprolol Succinate (ER) [Toprol 25 mg PO DAILY 06/21/16 10/19/16 History XL] Oxybutynin Chloride [Ditropan] 5 mg PO BID 06/21/16 10/19/16 History Latanoprost [Xalatan 0.005%] 1 drop BOTH EYES HS 06/23/16 10/19/16 History Donepezil 23mg 23 mg PO DAILY 10/19/16 10/19/16 History Memantine [Namenda] 10 mg PO DAILY 10/19/16 10/19/16 History clonazePAM [KlonoPIN] 1 mg PO DAILY 10/19/16 10/19/16 History Allergies Allergy/AdvReac Type Severity Reaction Status Date / Time erythromycin base Allergy Unknown Verified 10/19/16 11:43 Penicillins Allergy Unknown Verified 10/19/16 11:43 Sulfa (Sulfonamide Allergy Unknown Verified 10/19/16 11:43 Antibiotics) tetanus and diphtheria Allergy Unknown Verified 10/19/16 11:43 toxoids [tetanus & diphtheria toxoids] Physical Exam Vitals: Vital Signs Temp Pulse Pulse Resp BP BP Pulse Ox 10/19/16 08:00 96.2 F L 56 L 18 180/76 98 10/19/16 04:00 96.9 F L 62 18 159/72 98 10/19/16 01:24 96.9 F L 68 18 165/79 98 10/19/16 01:23 98 10/19/16 01:05 96.9 F L 68 18 165/79 98 10/19/16 00:23 97.9 F 62 18 133/63 96 10/18/16 22:27 66 18 163/70 99 10/18/16 20:53 97.2 F L 63 16 163/74 97 Intake and Output 10/18/16 10/19/16 10/19/16 22:59 06:59 14:59 Other: # Voids 1 Weight 74.843 kg 67.3 kg - Constitutional General appearance: average body habitus, cooperative, no acute distress - EENT Eyes: anicteric sclerae, EOMI, PERRLA, poor dentition, normal appearance ENT: hearing grossly normal - Neck Neck: normal ROM - Respiratory Respiratory: bilateral: CTA, negative: diminished, dullness, rhonchi - Cardiovascular Rhythm: regular Abnormal Heart Sounds: no systolic murmur, no diastolic murmur, no rub, no S3 Gallop, no S4 Gallop, no click, no other - Gastrointestinal General gastrointestinal: normal bowel sounds, soft - Integumentary Integumentary: normal, normal turgor - Neurologic Neurologic: CNII-XII intact - Musculoskeletal Musculoskeletal: gait normal, strength equal bilaterally (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) - Psychiatric Psychiatric: A&O x's 3 (Short-term memory loss as noted), appropriate affect, intact judgment & insight Results CBC & Chem 7: 10/18/16 22:20 10/18/16 22:20 Labs: Abnormal Lab Results - Last 24 Hours (Table) 10/18/16 10/18/16 10/19/16 Range/Units 22:20 22:20 06:07 MCV 79.7 L (80.0-100.0) fL RDW 16.1 H (11.5-15.5) % Plt Count 143 L (150-450) k/uL APTT (22.0-30.0) sec CK-MB (CK-2) 2.5 H* (0.0-2.4) ng/mL HDL Cholesterol 35 L (40-60) mg/dL 10/19/16 Range/Units 06:07 MCV (80.0-100.0) fL RDW (11.5-15.5) % Plt Count (150-450) k/uL APTT 56.3 H (22.0-30.0) sec CK-MB (CK-2) (0.0-2.4) ng/mL HDL Cholesterol (40-60) mg/dL Laboratory Results WBC 6.7 k/uL (3.8-10.6) 10/18/16 22:20 RBC 5.04 m/uL (3.80-5.40) 10/18/16 22:20 Hgb 13.5 gm/dL (11.4-16.0) 10/18/16 22:20 Hct 40.1 % (34.0-46.0) 10/18/16 22:20 MCV 79.7 fL (80.0-100.0) L 10/18/16 22: MCH 26.8 pg (25.0-35.0) 10/18/16 22: MCHC 33.7 g/dL (31.0-37.0) 10/18/16 22:20 RDW 16.1 % (11.5-15.5) H 10/18/16 22:20 Plt Count 143 k/uL (150-450) L 10/18/16 22:20 Neutrophils % 60 % 10/18/16 22:20 Lymphocytes % 30 % 10/18/16 22:20 Monocytes % 5 % 10/18/16 22:20 Eosinophils % 3 % 10/18/16 22:20 Basophils % 1 % 10/18/16 22:20 Neutrophils # 4.0 k/uL (1.3-7.7) 10/18/16 22:20 Lymphocytes # 2.0 k/uL (1.0-4.8) 10/18/16 22:20 Monocytes # 0.3 k/uL (0-1.0) 10/18/16 22:20 Eosinophils # 0.2 k/uL (0-0.7) 10/18/16 22:20 Basophils # 0.1 k/uL (0-0.2) 10/18/16 22:20 Anisocytosis Slight 10/18/16 22:20 PT 11.2 sec (9.0-12.0) 10/18/16 22:20 INR 1.1 (<1.2) 10/18/16 22:20 APTT 56.3 sec (22.0-30.0) H 10/19/16 06:07 Sodium 141 mmol/L (137-145) 10/18/16 22:20 Potassium 3.8 mmol/L (3.5-5.1) 10/18/16 22:20 Chloride 106 mmol/L (98-107) 10/18/16 22:20 Carbon Dioxide 23 mmol/L (22-30) 10/18/16 22:20 Anion Gap 12 mmol/L 10/18/16 22:20 BUN 10 mg/dL (7-17) 10/18/16 22:20 Creatinine 0.70 mg/dL (0.52-1.04) 10/18/16 22:20 Est GFR (MDRD) Af Amer >60 (>60 ml/min/1.73 sqM) 10/18/16 22:20 Est GFR (MDRD) Non-Af >60 (>60 ml/min/1.73 sqM) 10/18/16 22:20 Glucose 99 mg/dL (74-99) 10/18/16 22:20 Calcium 9.4 mg/dL (8.4-10.2) 10/18/16 22:20 Magnesium 2.0 mg/dL (1.6-2.3) 10/18/16 22:20 Total Bilirubin 0.5 mg/dL (0.2-1.3) 10/18/16 22:20 AST 32 U/L (14-36) 10/18/16 22:20 ALT 38 U/L (9-52) 10/18/16 22:20 Alkaline Phosphatase 93 U/L (38-126) 10/18/16 22:20 Total Creatine Kinase 34 U/L (30-135) 10/19/16 10:37 CK-MB (CK-2) 1.6 ng/mL (0.0-2.4) 10/19/16 10:37 CK-MB (CK-2) Rel Index 4.7 10/19/16 10:37 Troponin I <0.012 ng/mL (0.000-0.034) 10/19/16 10:37 Total Protein 6.5 g/dL (6.3-8.2) 10/18/16 22:20 Albumin 4.0 g/dL (3.5-5.0) 10/18/16 22:20 Triglycerides 126 mg/dL (<150) 10/19/16 06:07 Cholesterol 139 mg/dL (<200) 10/19/16 06:07 LDL Cholesterol, Calc 79 mg/dL (0-99) 10/19/16 06:07 HDL Cholesterol 35 mg/dL (40-60) L 10/19/16 06:07 Thrombosis Risk Factor Assmnt - DVT/VTE Prophylaxis DVT/VTE Prophylaxis: Pharmacologic Prophylaxis ordered, Mechanical Prophylaxis ordered - Choose All That Apply Each Risk Factor Represents 3 Points: Age 75 years or older Thrombosis Risk Factor Assessment Total Risk Factor Score: 3 Thrombosis Risk Factor Assessment Level: Moderate Risk Assessment and Plan Plan: 1. Atypical left arm discomfort symptoms more consistent of cervical radiculopathy with early myelopathic symptoms, rather than cardiac in history, patient would be seen by cardiology and also has recommended orthopedic spine consultation, MRI of the cervical spine was requested, previous imaging office CT neck was reviewed, patient was started on gabapentin 200 mg 3 times a day along with Soma to 40 mg every 6 hours, consult was made with Dr. Tubbs echocardiogram was requested troponins 3 are negative, patient might need epidural steroid injection should she not get any relief from above, she needs to be off antiplatelets for such procedures however this remains to be determined 2. hypertensive cardiovascular disease with prior history off silent [place] Blood pressure has not been under control, she currently is on hydralazine 50 mg 3 times a day, lisinopril 10 mg twice a day will be started 3 prior ESBL May 2016, inactive 5 dementia: With the simple MMS patient score 25 has been on Namenda and Aricept currently on Aricept 23 6 restless leg syndrome: Has been on heavy dose of Requip 2 mg at bedtime w 7 dysthymia n Zoloft 100 mg daily. No adjustments made 8 recurrent episode of incontinence: Has been on Ditropan 5 mg twice a day. 9 GERD: Patient be placed on Pepcid 20 mg daily. 10 DVT prophylaxis: Patient will be on heparin subcutaneous. CODE STATUS: Full code. Expectation length of stay Patient in the hospital for more than 2 nights.
[2016-10-19] MEDS: LISINOPRIL 10 MG TAB PO SCH ×2 (15:03→20:29)
[2016-10-19 16:44] LABS: Glucose,Whole Blood 130 mg/dL (75-99)
[2016-10-19] MEDS: LATANOPROST 0.005% OPHTH DROPS 2.5 ML BTL BOTH EYES SCH (20:28)
[2016-10-19 20:50] LABS: Glucose,Whole Blood 195 mg/dL (75-99)
[2016-10-19] MEDS: INSULIN LISPRO (humaLOG) 300 UNIT/3 ML VIAL SQ SCH (21:28)
[2016-10-20] MEDS: methylPREDNISolone SOD SUCCI 40 MG/ML 1 ML VIAL IV SCH ×5 (05:15→23:19)
[2016-10-20 06:59] LABS: Glucose,Whole Blood 220 mg/dL (75-99)
[2016-10-20 08:05] LABS: Basophils % (A) 0 %; CH 26.6; CHCM 33.1; Eosinophils % (A) 0 %; HCT 42.2 % (34.0-46.0); HDW 2.76; HGB 13.8 gm/dL (11.4-16.0); Luc # (Auto) 0.01; Luc % (Auto) 0; Lymphocytes # (A) 0.8 k/uL (1.0-4.8); Lymphocytes % (A) 8 %; MCH 26.4 pg (25.0-35.0); MCHC 32.7 g/dL (31.0-37.0); MCV 80.6 fL (80.0-100.0); Mean Platelet Volume 7.1; Monocytes # (A) 0.1 k/uL (0-1.0); Monocytes % (A) 1 %; Neutrophils # (A) 9.8 k/uL (1.3-7.7); Neutrophils % (A) 92 %; RBC 5.24 m/uL (3.80-5.40); RDW 15.8 % (11.5-15.5); WBC 10.7 k/uL (3.8-10.6); WBC (Perox) 10.44
[2016-10-20] MEDS: INSULIN LISPRO (humaLOG) 300 UNIT/3 ML VIAL SQ SCH ×4 (08:06→20:39)
[2016-10-20] MEDS: MECLIZINE 12.5 MG TAB PO SCH (08:07)
[2016-10-20] MEDS: DONEPEZIL 10 MG TAB PO SCH (08:07)
[2016-10-20] MEDS: OXYBUTYNIN CHLORIDE 5 MG TAB PO SCH ×2 (08:08→20:40)
[2016-10-20] MEDS: GABAPENTIN 100 MG CAP PO SCH ×3 (08:08→20:39)
[2016-10-20] MEDS: SERTRALINE 100 MG TAB PO SCH (08:08)
[2016-10-20] MEDS: hydrALAZINE HCL 50 MG TAB PO SCH ×3 (08:09→20:40)
[2016-10-20] MEDS: LISINOPRIL 10 MG TAB PO SCH ×2 (08:09→20:40)
[2016-10-20] MEDS: METOPROLOL SUCCINATE (ER) 25 MG TAB.ER.24H PO SCH (08:12)
[2016-10-20 08:15] LABS: ALT 30 U/L (9-52); AST 18 U/L (14-36); Alkaline Phosphatase 89 U/L (38-126); Anion Gap 11 mmol/L; Blood Urea Nitrogen 8 mg/dL (7-17); Carbon Dioxide 23 mmol/L (22-30); Chloride 105 mmol/L (98-107); Glucose 217 mg/dL (74-99); Non-African American GFR(MDRD) >60 (>60 ml/min/1.73 sqM); Potassium 3.3 mmol/L (3.5-5.1); Sodium 139 mmol/L (137-145); Total Bilirubin 0.4 mg/dL (0.2-1.3)
[2016-10-20 09:48] LABS: Hemoglobin A1C 5.4 % (4.2-6.1)
[2016-10-20 10:46] LABS: Hemoglobin A1C 5.6 % (4.2-6.1)
[2016-10-20] MEDS: ASPIRIN 325 MG TAB PO SCH (11:28)
[2016-10-20 12:06] LABS: Glucose,Whole Blood 255 mg/dL (75-99)
--- NOTE | 2016-10-20 13:52 | P.PN ---
Subjective 75-year-old female one of Dr. Kendrick's patient with past medical history of CAD post angioplasty and stent placement, history of fibromyalgia, recurrent UTI, dementia who was seen in emergency room secondary to persistent left arm discomfort for the past 1 week, patient's pain radiates from the forearm up her arm up to the neck and the left side of the upper part of the chest, patient normally follows with Dr. Parsons cardiology. 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 Review of old records shows CAT scan of the cervical spine and brain performed 06/23/2016 shows scattered degenerative joint disease and spondylolisthesis, biapical scarring noted, patient did not have any previous evaluation with spine surgeon or no previous MRI imaging, no epidurals cervical steroid injections in the past Patient was subsequently seen by cardiology secondary to her underlying coronary issues, her symptoms are more consistent with cervical disc disease 10/20: Cervical spine MRI is scheduled for later today. Dr. Tubbs is on consult. Patient is complaining of aches and only a hair better. She is now also complaining of headache. She states she did not sleep well last night. Melatonin added Objective - Vital Signs Vital signs: Vital Signs Temp 98.2 F 10/20/16 12:00 Pulse 69 10/20/16 12:00 Resp 16 10/20/16 12:00 BP 118/60 10/20/16 12:00 Pulse Ox 96 10/20/16 12:00 Intake & Output 10/19/16 10/20/16 10/20/16 18:59 06:59 18:59 Intake Total 300 450 Output Total 1000 Balance -700 450 Weight 67.3 kg Intake: Intake, IV Titration 90 Amount Heparin Sodium,Porcine/ 90 D5w Pmx 25,000 unit In Dextrose/Water 1 500ml. bag @ 12 UNITS/KG/HR 17. 96 mls/hr IV .Q24H RANJIT Rx #:[id number] Oral 210 450 Output: Urine 1000 Other: Voiding Method Toilet # Voids 3 # Bowel Movements 0 - Exam General appearance: average body habitus, cooperative, no acute distress - EENT Eyes: anicteric sclerae, EOMI, PERRLA, poor dentition, normal appearance ENT: hearing grossly normal - Neck Neck: normal ROM - Respiratory Respiratory: bilateral: CTA, negative: diminished, dullness, rhonchi - Cardiovascular Rhythm: regular Abnormal Heart Sounds: no systolic murmur, no diastolic murmur, no rub, no S3 Gallop, no S4 Gallop, no click, no other - Gastrointestinal General gastrointestinal: normal bowel sounds, soft - Integumentary Integumentary: normal, normal turgor - Neurologic Neurologic: CNII-XII intact - Musculoskeletal Musculoskeletal: gait normal, strength equal bilaterally (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) - Psychiatric Psychiatric: A&O x's 3 (Short-term memory loss as noted), appropriate affect, intact judgment & insight - Labs CBC & Chem 7: 10/20/16 06:51 10/20/16 06:51 Labs: Abnormal Lab Results - Last 24 Hours (Table) 10/19/16 10/19/16 10/20/16 Range/Units 16:38 20:48 06:51 WBC 10.7 H (3.8-10.6) k/uL RDW 15.8 H (11.5-15.5) % Neutrophils # 9.8 H (1.3-7.7) k/uL Lymphocytes # 0.8 L (1.0-4.8) k/uL Potassium (3.5-5.1) mmol/L Glucose (74-99) mg/dL POC Glucose (mg/dL) 130 H 195 H (75-99) mg/dL Total Protein (6.3-8.2) g/dL 10/20/16 10/20/16 10/20/16 Range/Units 06:51 06:58 12:03 WBC (3.8-10.6) k/uL RDW (11.5-15.5) % Neutrophils # (1.3-7.7) k/uL Lymphocytes # (1.0-4.8) k/uL Potassium 3.3 L (3.5-5.1) mmol/L Glucose 217 H (74-99) mg/dL POC Glucose (mg/dL) 220 H 255 H (75-99) mg/dL Total Protein 6.0 L (6.3-8.2) g/dL Assessment and Plan Plan: 1. Atypical left arm discomfort symptoms more consistent of cervical radiculopathy with early myelopathic symptoms, rather than cardiac in history, patient would be seen by cardiology and also has recommended orthopedic spine consultation, MRI of the cervical spine was requested, previous imaging office CT neck was reviewed, patient was started on gabapentin 200 mg 3 times a day along with Soma to 40 mg every 6 hours, consult was made with Dr. Tubbs echocardiogram was requested troponins 3 are negative, patient might need epidural steroid injection should she not get any relief from above, she needs to be off antiplatelets for such procedures however this remains to be determined 2. hypertensive cardiovascular disease with prior history off silent [place] Blood pressure has not been under control, she currently is on hydralazine 50 mg 3 times a day, lisinopril 10 mg twice a day will be started 3 prior ESBL May 2016, inactive 5 dementia: With the simple MMS patient score 25 has been on Namenda and Aricept currently on Aricept 23 6 restless leg syndrome: Has been on heavy dose of Requip 2 mg at bedtime w 7 dysthymia n Zoloft 100 mg daily. No adjustments made 8 recurrent episode of incontinence: Has been on Ditropan 5 mg twice a day. 9 GERD: Patient be placed on Pepcid 20 mg daily. 10 DVT prophylaxis: Patient will be on heparin subcutaneous. CODE STATUS: Full code. Discharge plan: Home tomorrow Impression and plan of care have been directed as dictated by the signing physician. Mari Chang nurse practitioner acting as scribe for signing physician.
[2016-10-20 17:11] LABS: Glucose,Whole Blood 133 mg/dL (75-99)
--- NOTE | 2016-10-20 17:13 | MR ---
MRI CERVICAL SPINE: CLINICAL HISTORY: Neck pain radiating down left arm into shoulder. TECHNIQUE: Multiplanar, multisequence imaging of the cervical spine is performed without IV contrast. COMPARISON: MRI cervical spine October 02, 2014. CT cervical spine June 23, 2016. FINDINGS: Sagittal images of the cervical spine show the craniocervical junction to remain within nor mal limits. The cervical and upper thoracic spinal cord is normal in course, caliber, and signal. Th ere is levoconvex scoliosis centered in the upper thoracic spine redemonstrated. There is exaggerated cervical curvature seen on sagittal images. The vertebral body heights are normal. Moderate to sever e disc space narrowing C5-C6 and C6-C7 levels is redemonstrated. The bone marrow signal intensity re demonstrates heterogeneous diminished T1 and increased T2 signal diffusely at C5 level could reflect enchondroma or other benign etiology unchanged from prior studies. Axial images show the C2-C3 level to appear within normal limits. Axial images at C3-C4 level show uncovertebral facet degenerative changes bilaterally contributing to mild left greater than right neural foraminal narrowing. Spinal canal is preserved. No significant c hange from prior MRI. Axial images at C4-C5 level shows small central disc protrusion mildly effacing anterior thecal sac w ith uncovertebral facet degenerative changes bilaterally causing mild bilateral neural foraminal narr owing. No significant change from prior studies. Axial images at C5-C6 level show broad-based posterior spur disc complex effacing anterior thecal sac and causing mild bilateral neural foraminal narrowing no significant change from prior study is iden tified. Axial images at C6-C7 level show more focal central spur disc complex effacing anterior thecal sac wi th mild bilateral neural foraminal narrowing due to marginal spurring. No significant change from alan or studies is seen. Axial images at C7-T1 level show small posterior disc herniation mildly effacing anterior thecal sac, bilateral neural foramina are patent. There are several T2 hyperintense lesions scattered throughout visualized thyroid, largest measures 1 .2 cm with rim calcification. IMPRESSION: Multilevel degenerative changes in the cervical spine as detailed above. No significant c hange from prior studies.
[2016-10-20 20:38] LABS: Glucose,Whole Blood 187 mg/dL (75-99)
[2016-10-20] MEDS: HYDROcodone/APAP 5-325MG 1 EACH TAB PO PRN (20:39)
[2016-10-20] MEDS: LATANOPROST 0.005% OPHTH DROPS 2.5 ML BTL BOTH EYES SCH (20:39)
[2016-10-20] MEDS ORDERED: MELATONIN 5 MG TABLET PO SCH (21:00)
[2016-10-21] MEDS: HYDROcodone/APAP 5-325MG 1 EACH TAB PO PRN (01:28)
[2016-10-21] MEDS: methylPREDNISolone SOD SUCCI 40 MG/ML 1 ML VIAL IV SCH (06:23)
[2016-10-21 07:03] LABS: Glucose,Whole Blood 140 mg/dL (75-99)
[2016-10-21 07:30] LABS: ALT 35 U/L (9-52); AST 25 U/L (14-36); Alkaline Phosphatase 82 U/L (38-126); Anion Gap 11 mmol/L; Blood Urea Nitrogen 14 mg/dL (7-17); Calcium 9.1 mg/dL (8.4-10.2); Carbon Dioxide 25 mmol/L (22-30); Chloride 104 mmol/L (98-107); Glucose 115 mg/dL (74-99); Non-African American GFR(MDRD) >60 (>60 ml/min/1.73 sqM); Potassium 3.6 mmol/L (3.5-5.1); Sodium 140 mmol/L (137-145); Total Bilirubin 0.4 mg/dL (0.2-1.3); Total Protein 6.3 g/dL (6.3-8.2)
[2016-10-21 07:39] LABS: Basophils % (A) 0 %; CH 26.4; CHCM 33.3; Eosinophils % (A) 0 %; HCT 40.6 % (34.0-46.0); HGB 13.5 gm/dL (11.4-16.0); Luc % (Auto) 1; Lymphocytes # (A) 1.8 k/uL (1.0-4.8); Lymphocytes % (A) 14 %; MCH 26.5 pg (25.0-35.0); MCHC 33.4 g/dL (31.0-37.0); MCV 79.5 fL (80.0-100.0); Mean Platelet Volume 6.9; Monocytes # (A) 0.5 k/uL (0-1.0); Monocytes % (A) 4 %; Neutrophils # (A) 10.4 k/uL (1.3-7.7); Neutrophils % (A) 81 %; RDW 15.5 % (11.5-15.5); WBC 12.8 k/uL (3.8-10.6)
[2016-10-21] MEDS: INSULIN LISPRO (humaLOG) 300 UNIT/3 ML VIAL SQ SCH (08:19)
[2016-10-21] MEDS: ASPIRIN 325 MG TAB PO SCH (08:19)
[2016-10-21] MEDS: hydrALAZINE HCL 50 MG TAB PO SCH (08:19)
[2016-10-21] MEDS: GABAPENTIN 100 MG CAP PO SCH (08:19)
[2016-10-21] MEDS: LISINOPRIL 10 MG TAB PO SCH (08:19)
[2016-10-21] MEDS: MECLIZINE 12.5 MG TAB PO SCH (08:19)
[2016-10-21] MEDS: OXYBUTYNIN CHLORIDE 5 MG TAB PO SCH (08:20)
[2016-10-21] MEDS: SERTRALINE 100 MG TAB PO SCH (08:20)
[2016-10-21] MEDS: METOPROLOL SUCCINATE (ER) 25 MG TAB.ER.24H PO SCH (08:20)
[2016-10-21] MEDS: DONEPEZIL 10 MG TAB PO SCH (08:20)
[2016-10-21 08:26] VITALS: BP 153/68; PULSE 53; RESP 18; TEMP 97.6
--- NOTE | 2016-10-21 08:41 | P.CNOR ---
History of Present Illness - [facility] Consult date: 10/21/16 Requesting physician: Shaylee Park Consult reason: neck pain, other (Left upper extremity radiculopathy and weakness due to pain) History of present illness: Patient is a very pleasant 76-year-old female with a history of dementia and Alzheimer's disease as well as cardiac stent placement who is seen and examined at bedside for further evaluation of left upper extremity radiculopathy and cervical pain. Patient states she woke up approximately 3:00 in the morning on 10/17/2016 with significant pain wrapping around her left elbow. She states she had been sleeping on the left elbow prior to her waking up with her symptoms.She states she walked around for a few minutes and then went back to bed. She states by 6:00 in the morning her pain was severe. The pain had radiated from the elbow down to the knuckles of the fingers of the left hand and then radiated back up the arm, over the shoulder, under the armpit, across the chest, up the neck, and behind the left ear. She presented to [facility] for further evaluation. She does have a history of cardiac stent placement. Upon presentation to the emergency department she received further workup by Dr. Bowles in cardiology. After further evaluation by cardiology and Dr. Park in medicine, they felt her symptoms were stemming from a cervical cause. An MRI of the cervical spine was performed yesterday. This MRI was compared to previous MRI in 2014 and to a recent CT of the cervical spine in May 2016. Images did not show any acute significant change. Patient states at the bedside today she does continue to have pain most significant over the left elbow and her symptoms have somewhat improved since her admission. She has increased pain while flexing and extending the left elbow and performing shoulder range of motion. She denies any right upper extremity radiculopathy or weakness. She states at the bedside she is not a surgical candidate as she was previously supposed to undergo right rotator cuff shoulder surgery but was unable to get medical clearance due to her history of dementia and Alzheimer's disease. Patient states she does not wish to discuss proceeding forward with any sort of surgical option. She would be willing to consult with pain management for further treatment and evaluation. She states she would really prefer to be discharged home today. We will plan to have her see pain management in the outpatient setting. Since being admitted to the hospital, she has been receiving Maramec 5 mg/325 mg, gabapentin 200 mg, and Solu- Medrol 40 mg as prescribed for some control of her symptoms. Past Medical History Past Medical History: Coronary Artery Disease (CAD), Dementia, Fibromyalgia Additional Past Medical History / Comment(s): arthritis, fibromyalgia, degenerative disc disease in the lumbar spine History of Any Multi-Drug Resistant Organisms: ESBL Year Discovered:: 06/10/16 ESBL E.coli MDRO Source:: Urine Past Surgical History: Appendectomy, Heart Catheterization With Stent, Hysterectomy, Orthopedic Surgery Additional Past Surgical History / Comment(s): right hip replacement, left cataract removal and intraocular lens implants, right elbow shoulder Past Anesthesia/Blood Transfusion Reactions: No Reported Reaction Date of Last Stent Placement:: 2004 Past Psychological History: No Psychological Hx Reported Smoking Status: Never smoker Past Alcohol Use History: None Reported Additional Past Alcohol Use History / Comment(s): Patient is a lifelong nonsmoker. No illicit drug use. She lives at home with her and 2 cats. 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 Past Drug Use History: None Reported - Past Family History Father Family Medical History: Myocardial Infarction ([place]) Mother Family Medical History: No Reported History Brother(s) Family Medical History: Unable to Obtain Sister(s) Family Medical History: Unable to Obtain Daughter(s) History Unknown: Yes (One daughter has alcoholism and from complications) Son(s) Family Medical History: Unable to Obtain (No sons) Medications and Allergies Home Medications Medication Instructions Recorded Confirmed Type Metoprolol Succinate (ER) [Toprol 25 mg PO DAILY 06/21/16 10/20/16 History XL] Oxybutynin Chloride [Ditropan] 5 mg PO BID 06/21/16 10/20/16 History Latanoprost [Xalatan 0.005%] 1 drop BOTH EYES HS 06/23/16 10/20/16 History Donepezil 23mg 23 mg PO DAILY 10/19/16 10/20/16 History Memantine [Namenda] 10 mg PO DAILY 10/19/16 10/20/16 History clonazePAM [KlonoPIN] 1 mg PO DAILY 10/19/16 10/20/16 History rOPINIRole HCL [Requip] 1 mg PO BID 10/20/16 10/20/16 History Allergies Allergy/AdvReac Type Severity Reaction Status Date / Time erythromycin base Allergy Unknown Verified 10/19/16 11:43 Penicillins Allergy Unknown Verified 10/19/16 11:43 Sulfa (Sulfonamide Allergy Unknown Verified 10/19/16 11:43 Antibiotics) tetanus and diphtheria Allergy Unknown Verified 10/19/16 11:43 toxoids [tetanus & diphtheria toxoids] Physical Examination Physical exam: Patient is awake, alert, and oriented 3; patient is able to communicate and answer questions clearly and appropriately Vital signs stable Good chest excursion with deep inspiration and expiration Examination of the cervical spine reveals skin is intact with no abrasions, lacerations, or bruises; no erythema, purulence or signs of infection Adequate range of motion of the cervical spine with adequate flexion, extension , and bilateral rotation Some pain with palpation over the left trapezius, left shoulder, left tricep, bicep, and left elbow Behavioral Health Clinician strength, thumb strength, interosseous strength, biceps strength, triceps strength, and shoulder strength positive sustained bilaterally Some reduction and strength due to pain of the left upper extremity including biceps, triceps, and deltoids Right upper extremity strength 5/5 right range of motion Left upper extremity strength 5/5 including water restoration technician strength, thumb strength, and interosseous strength No upper extremity hyperreflexia bilaterally Hoffmans sign negative upper extremity bilaterally Results Pertinent studies: MRI of the cervical spine taken on 10/20/2016: C3-4 uncovertebral facet degenerative changes resulting in bilateral neural foraminal narrowing greater on the left than the right; C4-5 uncovertebral facet degenerative changes and small central disc protrusion resulting in bilateral neural foraminal narrowing ; C5-6 degenerative disc disease and broad-based posterior spur disc complex resulting in bilateral neural foraminal narrowing and effacement of the anterior thecal sac; C6-7 degenerative disc disease and central spur disc complex resulting in bilateral neural foraminal narrowing and effacement anterior thecal sac; no significant change in imaging as compared to previous studies which include an MRI of the cervical spine taken on 10/02/[address] of the cervical spine taken on 3 09/23/2016; no evidence of acute fracture - Labs Labs: Abnormal Lab Results - Last 24 Hours (Table) 10/20/16 10/20/16 10/20/16 Range/Units 06:51 12:03 17:09 WBC (3.8-10.6) k/uL MCV (80.0-100.0) fL Neutrophils # (1.3-7.7) k/uL Potassium 3.3 L (3.5-5.1) mmol/L Glucose 217 H (74-99) mg/dL POC Glucose (mg/dL) 255 H 133 H (75-99) mg/dL Total Protein 6.0 L (6.3-8.2) g/dL 10/20/16 10/21/16 10/21/16 Range/Units 20:36 06:44 06:44 WBC 12.8 H (3.8-10.6) k/uL MCV 79.5 L (80.0-100.0) fL Neutrophils # 10.4 H (1.3-7.7) k/uL Potassium (3.5-5.1) mmol/L Glucose 115 H (74-99) mg/dL POC Glucose (mg/dL) 187 H (75-99) mg/dL Total Protein (6.3-8.2) g/dL 10/21/16 Range/Units 07:00 WBC (3.8-10.6) k/uL MCV (80.0-100.0) fL Neutrophils # (1.3-7.7) k/uL Potassium (3.5-5.1) mmol/L Glucose (74-99) mg/dL POC Glucose (mg/dL) 140 H (75-99) mg/dL Total Protein (6.3-8.2) g/dL H & H 10/18/16 10/20/16 10/21/16 Range/Units 22:20 06:51 06:44 Hgb 13.5 13.8 13.5 (11.4-16.0) gm/dL Hct 40.1 42.2 40.6 (34.0-46.0) % Coagulation 10/18/16 Range/Units 22:20 INR 1.1 (<1.2) Result Diagrams: 10/21/16 06:44 10/21/16 06:44 Assessment and Plan (1) Radiculopathy affecting upper extremity Status: Acute (2) Degenerative disc disease, cervical Status: Acute (3) Facet arthropathy, cervical Status: Acute Plan: Assessment: Left upper extremity radiculopathy Cervicalgia Cervical degenerative disc disease Cervical facet degeneration Left upper extremity weakness due to pain History of Alzheimer's and dementia History of cardiac stent placement Plan: 1. After further evaluation of the patient, discussion with the patient, and reviewing of imaging, we're not currently planning for any acute surgical intervention in regards to the patient's cervical spine. At this time she states she is not a surgical candidate and would not want to discuss proceeding forward with surgical intervention. She would be willing to consult with pain management in the outpatient setting to discuss further treatment options including the possibility of epidural injections. At this time the patient would prefer to be discharged home today with continued treatment in the outpatient setting. Patient does have some degenerative changes most significant at C5-6 and C6-7. These degenerative changes have not significantly changed as compared to her previous MRI 2 years ago in 2015. It would be difficult to determine if surgical intervention would provide significant relief of her left upper extremity symptoms given some of her symptoms radiate distally while others radiate proximally. I do feel the patient would be best served to continue with conservative treatment at this time including consultation with pain management. At this time, patient will be cleared for discharge from an orthopedic spine standpoint as we are not currently planning for further imaging or further invasive treatment. Given the patient's inability to receive surgical clearance and the patient's wanting to avoid surgical intervention, we will currently plan for the patient to follow up on an as-needed basis in outpatient setting. We recommend her continuing conservative treatment with pain management and with her primary care provider. She may continue to participate in activities as tolerated in regards to her cervical spine and left upper extremity. If her symptoms are not improving with conservative treatment, she may call the office at a follow- up appointment. 2. We will plan have the patient consult with Dr. Mcdowell in pain management in outpatient setting following discharge 3. Dr. Park in medicine and Dr. Bowles in cardiology will continue to follow the patient 4. From an orthopedic spine standpoint, patient is cleared for discharge once cleared by all other medical providers 5. Following discharge, patient may follow-up with Stan Cabral PA-C or Dr. Anibal Tubbs at [facility] on an as-needed basis 6. I will discuss the patient in detail with Dr. Anibal Tubbs Time with Patient: Greater than 30
--- NOTE | 2016-10-22 10:47 | P.DS ---
Providers Date of admission: 10/19/16 00:41 Expected date of discharge: 10/21/16 Attending physician: Shaylee Park Consults: 10/18/16 23:53 Consult Physician Urgent Consulting Provider: Lon Vuong Consult Reason/Comments: UA Do you want consulting provider notified?: Yes, Notify in am 10/19/16 11:36 Consult Physician Routine Consulting Provider: Garrick Tubbs Consult Reason/Comments: cervical radicultis with rizvi[pected myelopathy Do you want consulting provider notified?: Yes Primary care physician: Katlyn Kendrick [facility] Course: 75-year-old female one of Dr. Kendrick's patient with past medical history of CAD post angioplasty and stent placement, history of fibromyalgia, recurrent UTI, dementia who was seen in emergency room secondary to persistent left arm discomfort for the past 1 week, patient's pain radiates from the forearm up her arm up to the neck and the left side of the upper part of the chest, patient normally follows with Dr. Parsons cardiology. Patient denies any palpitations or lightheadedness or dizziness, She woke up with the left arm discomfort this morning, at 3:00 and applied some Lidoderm patches, patient finally went back to bed, and patient's pain has still persisted and gotten worse when she woke up, this is her third day persistent pain, patient denies any prior history of fall or trauma, she has paresthesias on both fingers and toes, she also mentions that the left arm seems to be weaker in hash slinger patient denies any other focal neurologic deficit hence the ER evaluation. Review of old records shows CAT scan of the cervical spine and brain performed 06/23/2016 shows scattered degenerative joint disease and spondylolisthesis, biapical scarring noted, patient did not have any previous evaluation with spine surgeon or no previous MRI imaging, no epidurals cervical steroid injections in the past Patient was subsequently seen by cardiology secondary to her underlying coronary issues, her symptoms are more consistent with cervical disc disease 10/20: Cervical spine MRI is scheduled for later today. Dr. Tubbs is on consult. Patient is complaining of aches and only a hair better. She is now also complaining of headache. She states she did not sleep well last night. Melatonin added 10/21: Patient has been seen by orthopedic spine with plan for follow-up in the office. Patient denies needing any pain medication for home. Patient will be discharged home today in stable condition Discharge Diagnoses: 1. Atypical left arm discomfort symptoms more consistent of cervical radiculopathy 2. hypertensive cardiovascular disease with prior history of silent OK 3 prior ESBL May 2016, inactive 5 dementia 6 restless leg syndrome 7 dysthymia 8 recurrent episode of incontinence 9 GERD: Discharge plan: return home Impression and plan of care have been directed as dictated by the signing physician. Mari Chang nurse practitioner acting as scribe for signing physician. Patient Condition at Discharge: Good Plan - Discharge Summary New Discharge Prescriptions: No Action Oxybutynin Chloride [Ditropan] 5 mg PO BID Metoprolol Succinate (ER) [Toprol XL] 25 mg PO DAILY Latanoprost [Xalatan 0.005%] 1 drop BOTH EYES HS Meclizine [Antivert] 12.5 mg PO DAILY #60 tab hydrALAZINE HCL [Apresoline] 50 mg PO TID #90 tab clonazePAM [KlonoPIN] 1 mg PO DAILY Donepezil 23mg 23 mg PO DAILY Memantine [Namenda] 10 mg PO DAILY rOPINIRole HCL [Requip] 1 mg PO BID Discharge Medication List Metoprolol Succinate (ER) [Toprol XL] 25 mg PO DAILY 06/21/16 [History] Oxybutynin Chloride [Ditropan] 5 mg PO BID 06/21/16 [History] Latanoprost [Xalatan 0.005%] 1 drop BOTH EYES HS 06/23/16 [History] Meclizine [Antivert] 12.5 mg PO DAILY #60 tab 06/25/16 [Rx] hydrALAZINE HCL [Apresoline] 50 mg PO TID #90 tab 06/25/16 [Rx] Donepezil 23mg 23 mg PO DAILY 10/19/16 [History] Memantine [Namenda] 10 mg PO DAILY 10/19/16 [History] clonazePAM [KlonoPIN] 1 mg PO DAILY 10/19/16 [History] rOPINIRole HCL [Requip] 1 mg PO BID 10/20/16 [History] Follow up Appointment(s)/Referral(s): Katlyn Kendrick MD [Primary Care Provider] - 1 Week Stan Cabral PAC [PHYSICIAN EGG BREAKING MACHINE OPERATOR] - As Needed (Patient may follow-up with Stan Cabral PA-C or Dr. Anibal Tubbs at [facility] on an as-needed basis following discharge. ) Activity/Diet/Wound Care/Special Instructions: pt is to follow up in the pain clinic- [phone] Discharge Disposition: HOME SELF-CARE
== END 2016-10-21 10:05 | disposition home or self-care (01) ==
LOC: EC 20:21 → 6SEL 10-19 00:41 → 3OBS 10-19 23:59
PROVIDERS: ADMIT Family Medicine; ATTEND Family Medicine
DX: M79.602 Pain in left arm (principal); M50.10 Cervical disc disorder with radiculopathy, unspecified cervical region; R07.9 Chest pain, unspecified; K21.9 Gastro-esophageal reflux disease without esophagitis; M46.82 Other specified inflammatory spondylopathies, cervical region; R32 Unspecified urinary incontinence; F34.1 Dysthymic disorder; G25.81 Restless legs syndrome; I25.2 Old myocardial infarction; I11.9 Hypertensive heart disease without heart failure; R51 Headache; M79.7 Fibromyalgia; G89.29 Other chronic pain; R00.1 Bradycardia, unspecified; M51.36 Other intervertebral disc degeneration, lumbar region; I25.10 Atherosclerotic heart disease of native coronary artery without angina pectoris; F02.80 Dementia in other diseases classified elsewhere, unspecified severity, without behavioral disturbance, psychotic disturbance, mood disturbance, and anxiety; G30.9 Alzheimer's disease, unspecified; M25.512 Pain in left shoulder; M25.511 Pain in right shoulder; R19.7 Diarrhea, unspecified; R11.0 Nausea; Z82.49 Family history of ischemic heart disease and other diseases of the circulatory system; Z79.899 Other long term (current) drug therapy; Z95.5 Presence of coronary angioplasty implant and graft; Z88.3 Allergy status to other anti-infective agents; Z88.0 Allergy status to penicillin; Z88.2 Allergy status to sulfonamides; Z88.7 Allergy status to serum and vaccine; Z16.24 Resistance to multiple antibiotics; Z87.440 Personal history of urinary (tract) infections
CPT/HCPCS: 96361 ×3; 96376 ×4; 96365 ×2; 96375 ×3; 99285 ×2; 96366; 36415; 94760; 93005; 80061; 80053 ×3; 84443; 82607; 83036 ×2; 82550 ×2; 82553 ×2; 83735; 84484 ×2; 85025 ×3; 85610; 85730 ×3; 71020; 72050; 73030; 72141; G0378 ×3; J2270; J1644 ×2; J2920 ×2

== ENCOUNTER 2016-10-23 19:45 | Emergency (ER) | payer MEDICARE, OTHER ==
[2016-10-23 19:57] VITALS: RESP 18
[2016-10-23] MEDS ORDERED: HYDROmorphone 1 MG/ML 1 ML SYRINGE IVP STA (20:53)
--- NOTE | 2016-10-23 20:59 | ED ---
Back Pain HPI - General Chief Complaint: Back Pain/Injury Stated Complaint: Back Pain Time Seen by Provider: 10/23/16 20:21 Source: patient, RN notes reviewed Limitations: no limitations - History of Present Illness Initial Comments: Patient is a 76-year-old female presents to the emergency room for evaluation of left arm pain. Patient was discharged from here on Thursday for the same complaint. Patient states she was having left arm pain that radiates across her chest. Patient states when she was admitted and she had a cardiac workup which was negative. Patient states they told her it was related to her neck which was causing her arm pain. Patient states that she was offered pain management and declined and was sent home. Patient states she wasn't sent home on any pain medications. Patient states she has an appointment with a paint tester tomorrow at 2:30 PM. Patient states she's been having worsening pain. Patient states she hasn't been taking anything for pain at home. patient denies shortness of breath. Patient's headache or dizziness. Patient states the pain is traveling down her left scapula now. Patient denies recent trauma or injury to her neck or arm. - Related Data Home Medications Medication Instructions Recorded Confirmed Metoprolol Succinate (ER) [Toprol 25 mg PO DAILY 06/21/16 10/23/16 XL] Oxybutynin Chloride [Ditropan] 5 mg PO BID 06/21/16 10/23/16 Latanoprost [Xalatan 0.005%] 1 drop BOTH EYES HS 06/23/16 10/23/16 Donepezil 23mg 23 mg PO DAILY 10/19/16 10/23/16 Memantine [Namenda] 10 mg PO DAILY 10/19/16 10/23/16 clonazePAM [KlonoPIN] 1 mg PO DAILY 10/19/16 10/23/16 rOPINIRole HCL [Requip] 1 mg PO BID 10/20/16 10/23/16 Previous Rx's Medication Instructions Recorded Meclizine [Antivert] 12.5 mg PO DAILY #60 tab 06/25/16 hydrALAZINE HCL [Apresoline] 50 mg PO TID #90 tab 06/25/16 HYDROcodone/APAP 5-325MG [[place] 1 tab PO Q6HR PRN #12 tab 10/23/16 5-325] Allergies Allergy/AdvReac Type Severity Reaction Status Date / Time erythromycin base Allergy Unknown Verified 10/23/16 20:03 Penicillins Allergy Unknown Verified 10/23/16 20:03 Sulfa (Sulfonamide Allergy Unknown Verified 10/23/16 20:03 Antibiotics) tetanus and diphtheria Allergy Unknown Verified 10/23/16 20:03 toxoids [tetanus & diphtheria toxoids] Review of Systems ROS Statement: Those systems with pertinent positive or pertinent negative responses have been documented in the HPI. ROS Other: All systems not noted in ROS Statement are negative. Past Medical History Past Medical History: Coronary Artery Disease (CAD), Dementia, Fibromyalgia Additional Past Medical History / Comment(s): arthritis, fibromyalgia, degenerative disc disease in the lumbar spine History of Any Multi-Drug Resistant Organisms: ESBL Date of last positivie culture/infection: 06/10/16 ESBL E.coli MDRO Source:: Urine Past Surgical History: Appendectomy, Heart Catheterization With Stent, Hysterectomy, Orthopedic Surgery Additional Past Surgical History / Comment(s): right hip replacement, left cataract removal and intraocular lens implants, right elbow shoulder Past Anesthesia/Blood Transfusion Reactions: No Reported Reaction Date of Last Stent Placement:: 2004 Past Psychological History: No Psychological Hx Reported Smoking Status: Never smoker Past Alcohol Use History: None Reported Past Drug Use History: None Reported - Past Family History Father Family Medical History: Myocardial Infarction (CT) Mother Family Medical History: No Reported History Brother(s) Family Medical History: Unable to Obtain Sister(s) Family Medical History: Unable to Obtain Daughter(s) History Unknown: Yes (One daughter has alcoholism and from complications) Son(s) Family Medical History: Unable to Obtain (No sons) General Exam Limitations: no limitations General appearance: alert Head exam: Present: atraumatic, normocephalic, normal inspection Eye exam: Present: normal appearance ENT exam: Present: normal exam Neck exam: Present: normal inspection Respiratory exam: Present: normal lung sounds bilaterally. Absent: respiratory distress Cardiovascular Exam: Present: regular rate, normal rhythm, normal heart sounds Left Shoulder Exam: Present: normal inspection, tenderness (tenderness on palpating over the anterior shoulder joint and going down the arm.) Back exam: Present: normal inspection Neurological exam: Present: alert Psychiatric exam: Present: agitated Skin exam: Present: warm, dry, intact, normal color. Absent: rash Course Vital Signs 10/23/16 10/23/16 19:54 23:12 Temperature 97.4 F L 98.7 F Pulse Rate 70 87 Respiratory 18 18 Rate Blood Pressure 179/84 135/87 O2 Sat by Pulse 99 98 Oximetry Medical Decision Making - Medical Decision Making Patient is a 76-year-old female presents emergency room for evaluation of left shoulder/arm pain. EKG shows no changes from 10/19/16. Patient states she has an appointment with paint tester tomorrow at 2:30 PM. Advised patient to keep that appointment. Will send patient home with pain medications. Return parameters discussed. - Lab Data Lab Results 10/23/16 10/23/16 Range/Units 21:15 21:15 Magnesium 2.3 (1.6-2.3) mg/dL Total Creatine Kinase <20 L (30-135) U/L CK-MB (CK-2) 0.4 (0.0-2.4) ng/mL CK-MB (CK-2) Rel Index 0.0 Troponin I <0.012 (0.000-0.034) ng/mL 10/23/16 22:10 ventricular rate 79 bpm, MA interval 176 ms, QRS moravian 102 ms, QT/QTc 422/ 483 ms Disposition Clinical Impression: Left cervical radiculopathy Disposition: HOME SELF-CARE Condition: Good Instructions: Cervical Radiculopathy (ED) Additional Instructions: Take pain medications as needed. Please follow up scheduled appointment with paint tester tomorrow. If any new symptom arises or symptoms worsen, return to ER as soon as possible. Prescriptions: HYDROcodone/APAP 5-325MG [[place] 5-325] 1 tab PO Q6HR PRN #12 tab PRN Reason: Pain Referrals: Katlyn Kendrick MD [Primary Care Provider] - 1-2 days Time of Disposition: 22:45
[2016-10-23 21:51] LABS: Creatine Kinase <20 U/L (30-135)
[2016-10-23 22:04] LABS: Creatine Kinase MB 0.4 ng/mL (0.0-2.4); Troponin I <0.012 ng/mL (0.000-0.034)
[2016-10-23 23:13] VITALS: BP 135/87; PULSE 87; TEMP 98.7
== END 2016-10-23 23:13 | disposition home or self-care (01) ==
LOC: EC 19:45
DX: M54.12 Radiculopathy, cervical region (principal); F03.90 Unspecified dementia, unspecified severity, without behavioral disturbance, psychotic disturbance, mood disturbance, and anxiety; I25.10 Atherosclerotic heart disease of native coronary artery without angina pectoris; Z88.1 Allergy status to other antibiotic agents; Z88.0 Allergy status to penicillin; Z88.2 Allergy status to sulfonamides; Z88.7 Allergy status to serum and vaccine; Z79.899 Other long term (current) drug therapy
CPT/HCPCS: 36415; 93005; 82550; 82553; 83735; 84484; 99284; 96374; J1170

== ENCOUNTER → 2016-12-22 | Outpatient (CLI) | payer MEDICARE, OTHER ==
[2016-12-19 10:48] VITALS: BMI 22.6
[2016-12-22 11:48] VITALS: BP 141/59; PULSE 66; RESP 16
--- NOTE | 2016-12-22 12:14 | P.HPIM ---
History of Present Illness H&P Date: 12/22/16 Chief Complaint: neck and arm pain This is a 76-year-old patient referred by Dr. uQiroz for chronic pain in neck and radiation to left arm (and left chest, and left upper back) more than right arm with numbness in the fingertips on both upper extremities. Patient has been taking medications from primary care physician including Wilbur medications with some relief. Patient denies adverse drug effects from medications. Patient also denies new-onset weakness, bowel/bladder incontinence , or any other signs or symptoms of cauda equina syndrome. There are no signs of acute intoxication, and no indications of medication diversion or overuse. Patient notes that pain worsens significantly with turning the head and extending the head and improves with rest, neck flexion, and medication. Patient denies any temperature changes, nail changes, but does endorse some pain in her left arm with clothes more recently. Patient has used several types of medications for pain, including NSAIDS, OPIOIDS, TRAMADOL, ANTIDEPRESSANTS, and BENZODIAZEPINES. Patient HAS NOT had surgery. Patient HAS NOT had injections previously. Patient HAST had physical therapy recently without benefit. In addition to above, 13-point review of systems is also negative for chest pain , shortness of breath, changes in vision, changes in hearing, new onset weakness , abdominal pain, diarrhea, extreme fatigue, malaise, fever, skin changes, homicidal or suicidal ideation, or bowel or bladder incontinence. Vital Signs: Reviewed in EMR Gen: WDWN, AAOx3, NAD HEENT: NCAT, EOMI, hearing grossly normal Pulm: resp unlabored Abd: soft, NT, ND Neck: supple, trachea midline ROM in flexion cervical spine: reduced ROM in extension cervical spine: reduced Cervical paravertebral tenderness: + L > R Cervical Facet tenderness: + L >> R Spurling's: + LUE Upper extremity: decreased patient portal concierge strength secondary to pain Neuro: CN II-XII grossly intact, muscle strength lower extremities PRESERVED Past Medical History Past Medical History: Coronary Artery Disease (CAD), Dementia, Fibromyalgia, Hypertension, Myocardial Infarction (MD), Osteoarthritis (OA) Additional Past Medical History / Comment(s): degenerative disc disease in the lumbar spine, left arm pain & across shoulders Last Myocardial Infarction Date:: 2004 History of Any Multi-Drug Resistant Organisms: ESBL Date of last positivie culture/infection: 06/10/16 ESBL E.coli MDRO Source:: Urine Past Surgical History: Appendectomy, Heart Catheterization With Stent, Hysterectomy, Orthopedic Surgery Additional Past Surgical History / Comment(s): right hip replacement, left cataract removal and intraocular lens implants, right elbow shoulder Past Anesthesia/Blood Transfusion Reactions: No Reported Reaction Date of Last Stent Placement:: 2004 Smoking Status: Never smoker - Past Family History Father Family Medical History: Myocardial Infarction (MD) Mother Family Medical History: No Reported History Brother(s) Family Medical History: Unable to Obtain Sister(s) Family Medical History: Unable to Obtain Daughter(s) History Unknown: Yes Son(s) Family Medical History: Unable to Obtain Medications and Allergies Home Medications Medication Instructions Recorded Confirmed Type Metoprolol Succinate (ER) [Toprol 25 mg PO DAILY 06/21/16 12/22/16 History XL] Oxybutynin Chloride [Ditropan] 5 mg PO BID 06/21/16 12/22/16 History hydrALAZINE HCL [Apresoline] 50 mg PO TID #90 tab 06/25/16 12/22/16 Rx Donepezil [Aricept] 23 mg PO HS 10/19/16 12/22/16 History Memantine [Namenda] 5 mg PO BID 10/19/16 12/22/16 History rOPINIRole HCL [Requip] 2 mg PO HS 10/20/16 12/22/16 History Aspirin 81 mg PO DAILY 12/19/16 12/22/16 History Pzrkbisywhakfc-TT-Aabswhakfu 1 tab PO DAILY 12/19/16 12/22/16 History [Folbic] Gabapentin [Neurontin] 100 mg PO BID 12/19/16 12/22/16 History Gabapentin [Neurontin] 300 mg PO BID 12/19/16 12/22/16 History Allergies Allergy/AdvReac Type Severity Reaction Status Date / Time erythromycin base Allergy Unknown Verified 12/22/16 11:33 Penicillins Allergy Unknown Verified 12/22/16 11:33 Sulfa (Sulfonamide Allergy Unknown Verified 12/22/16 11:33 Antibiotics) tetanus and diphtheria Allergy Unknown Verified 12/22/16 11:33 toxoids [tetanus & diphtheria toxoids] Results Comments: MRI of the cervical spine without contrast dated 10/02/2014 demonstrates bilateral intervertebral foraminal narrowing at the C4-C5 level. There is diffuse disc displacement at the C5-C6 level that is encroaching upon the thecal sac and spinal cord at this level. There is no definite cord compression seen. The C6-C7 level there is severe disc space loss with hypertrophic spondylosis posteriorly. This is causing encroachment upon the anterior thecal sac with cord contact without compression. There is also bilateral intervertebral foraminal narrowing worse on the right than on the left. Assessment and Plan (1) Cervical spondylosis with myelopathy Status: Chronic (2) Cervical disc herniation Status: Chronic (3) Chronic pain syndrome Status: Chronic Plan: 1. Explanation: Opioid and psychological risk scores were reviewed. Diagnoses , prognoses, and multiple treatment options including but not limited to physical therapy, interventional therapies, adjuvant medical therapies, narcotic medication therapies, and surgery were discussed with the patient and all questions were answered to the patient's satisfaction. 2. Opioid agreement: no opioids prescribed today 3. Counseling: The patient was counseled extensively on BODY MASS INDEX, EXERCISE. Specifically, the patient was instructed regarding the importance of weight control, and exercise in the context of both chronic pain and overall health. 4. Procedures: cervical DEONNA series 5. Consultations: none 6. Investigations: none 7. Medications: none prescribed 8. Disposition: f/u for procedure as scheduled. At some point, we may need to rule out CRPS if she has persistent problems wearing fabrics over her left arm. Of note, the patient was warned regarding the synergistic effects of benzodiazepines and opioids in terms of sedation, nausea, and respiratory depression possibly resulting in . The patient verbalized understanding and acceptance of these risks. PQRS measures: 1-Patient's medications are documented in the chart. 2-Tobacco use is negative 3-Patient has not had a pneumococcal vaccine. 4-Advanced care planning discussed, patient unable to give. 5-Opioid contract NOT signed with the patient. 6-Pain positive, follow-up visit or procedure scheduled 7-Patient's blood pressure measured and documented, and patient will follow up with the primary care due to hypertension. 8-Patient's weight was measured, and body mass index within the normal limits. 9-Patient WAS NOT identified as an unhealthy alcohol user. Time with Patient: Greater than 30
== END ==
LOC: PNWHC3 11:27
PROVIDERS: ATTEND Anesthesiology
DX: M50.20 Other cervical disc displacement, unspecified cervical region (principal); M47.812 Spondylosis without myelopathy or radiculopathy, cervical region; I25.10 Atherosclerotic heart disease of native coronary artery without angina pectoris; I10 Essential (primary) hypertension; M19.90 Unspecified osteoarthritis, unspecified site; I25.2 Old myocardial infarction; Z79.899 Other long term (current) drug therapy; Z79.82 Long term (current) use of aspirin; Z88.2 Allergy status to sulfonamides; Z88.0 Allergy status to penicillin; Z88.1 Allergy status to other antibiotic agents; Z88.7 Allergy status to serum and vaccine
CPT/HCPCS: 99211

== ENCOUNTER → 2017-01-12 | Day surgery (SDC) | payer MEDICARE, OTHER ==
[2017-01-07 09:04] VITALS: BMI 22.4
[~2017-01-12] MED LIST: IV FLUID CONTINUATION 1,000 ML IV ONE; LACTATED RINGERS 1,000 ML IV SCH; LIDOCAINE 1% 20 ML VIAL (10MG/ML) FOR IV START INTRADERMA ONE
[2017-01-12 09:31] VITALS: TEMP 97.9
--- NOTE | 2017-01-12 10:10 | FL ---
EXAMINATION TYPE: FL guided pain mgmt statistic DATE OF EXAM: 01/12/2017 HISTORY: Flouroscopy time 8 seconds of fluoroscopy provided. IMPRESSION: 1. Fluoroscopy time.
[2017-01-12 10:24] VITALS: BP 168/71; PULSE 56; RESP 18
--- NOTE | 2017-01-12 11:05 | P.PCN ---
Date of Procedure: 01/12/17 Surgeon: Geovanni Fernandez Pathology: none sent Condition: stable Disposition: PACU Description of Procedure: PREOPERATIVE DIAGNOSIS: Cervical radiculopathy. POSTOPERATIVE DIAGNOSIS: Cervical radiculopathy. PROCEDURE 1. Cervical epidural steroid injection under fluoroscopic guidance, C7-T1 level. 2. Cervical epidurogram. ANESTHESIA: Local anesthesia with 1% lidocaine and IV sedation with versed/ fentanyl. EBL: Minimal PROCEDURE INDICATION: The patient with neck pain and radiculitis unresponsive to conservative treatment consents for procedure. No use of blood thinners. FORTUNATO #1 at this visit. PROCEDURE DESCRIPTION / TECHNIQUE: The patient was seen and identified in the preoperative area. Risks, benefits, complications, and alternatives were discussed with the patient (including but not limited to incomplete pain relief, bleeding, infection, nerve damage, and allergies to medications), the patient agreed to proceed with the procedure and signed the consent after all questions were answered. Patient was taken to the OR and time out was completed to verify proper patient , position, laterality of pain, and allergies. Pt was placed in the prone position. A pillow was placed under the patients chest to increase the cervical interlaminar space. The cervical area was prepped and draped in the usual sterile fashion. Critical pause was taken. Vital signs were closely monitored during the procedure. Conscious sedation was used during the procedure to decrease patients anxiety. Using anterior-posterior fluoroscopy, the C7-T1 interlaminar space was identified and the skin over this site was marked and then infiltrated with 1% lidocaine subcutaneously in a paramedian fashion. Subsequently, a 20-gauge 3-1/2 -inch Tuohy epidural needle was inserted and advanced toward the epidural space by means of the loss of resistance technique and guided by AP and lateral fluoroscopy. After negative aspiration for blood or CSF and in the absence of paresthesias, the correct needle position in the epidural space was verified with the injection of 1 mL of the water soluble contrast dye Omnipaque-180 and observing an excellent epidurogram with the epidural spread of the dye, after negative aspiration for blood and CSF and in the absence of paresthesias. Again after negative aspiration, a 5 ml mixture containing 10 mg of Decadron and 4 ml of preservative free Normal Saline solution was injected and a washout of epidurogram was seen. Needle was withdrawn intact, skin was cleansed, and bandages were applied. COMPLICATIONS: None COMMENTS: DISPOSITION / PLANS: The patient was placed in a supine position and transferred to the recovery area in a stable condition for observation. There was no evidence of upper extremity motor or sensory deficit after the procedure. Patient was discharged from the recovery room after meeting discharge criteria. Home discharge instructions were given to the patient by the staff. The patient was reexamined prior to discharge. The patient will schedule a repeat FORTUNATO in 4-6 weeks.
== END | disposition home or self-care (01) ==
LOC: ORPAIN 08:21
PROVIDERS: ATTEND Anesthesiology
DX: G89.29 Other chronic pain (principal); M50.10 Cervical disc disorder with radiculopathy, unspecified cervical region; M47.12 Other spondylosis with myelopathy, cervical region; I25.10 Atherosclerotic heart disease of native coronary artery without angina pectoris; F03.90 Unspecified dementia, unspecified severity, without behavioral disturbance, psychotic disturbance, mood disturbance, and anxiety; M79.7 Fibromyalgia; I10 Essential (primary) hypertension; M19.90 Unspecified osteoarthritis, unspecified site; I25.2 Old myocardial infarction; Z88.1 Allergy status to other antibiotic agents; Z88.0 Allergy status to penicillin; Z88.2 Allergy status to sulfonamides; Z88.7 Allergy status to serum and vaccine; Z79.82 Long term (current) use of aspirin; Z79.899 Other long term (current) drug therapy; Z95.5 Presence of coronary angioplasty implant and graft; Z96.641 Presence of right artificial hip joint; Z82.49 Family history of ischemic heart disease and other diseases of the circulatory system
CPT/HCPCS: 99152; 62321; J2250; J1100; Q9965; J3010

== ENCOUNTER 2017-02-05 07:56 | Day surgery (SDC) | payer MEDICARE, OTHER ==
[2017-02-03 18:20] VITALS: BMI 22.4
[~2017-02-05 07:56] MED LIST changes: -IV FLUID CONTINUATION 1,000 ML IV ONE; +LACTATED RINGERS 1,000 ML IV ONE; -LACTATED RINGERS 1,000 ML IV SCH; -LIDOCAINE 1% 20 ML VIAL (10MG/ML) FOR IV START INTRADERMA ONE
[2017-02-05] MEDS ORDERED: LIDOCAINE 1% 20 ML VIAL (10MG/ML) FOR IV START INTRADERMA ONE (08:17)
[2017-02-05 08:31] VITALS: RESP 16; TEMP 97.8
--- NOTE | 2017-02-05 09:31 | P.PCN ---
Date of Procedure: 02/05/17 Preoperative Diagnosis: cervical spondylosis and radiculopathy Postoperative Diagnosis: same as above Procedure(s) Performed: cervical epidural steroid injection under fluoroscopic guidance in the interlaminar approach Anesthesia: MAC (conscious sedation with IV Versed and fentanyl) Surgeon: Yovana Irvin Pathology: none sent Condition: stable Disposition: PACU Description of Procedure: The patient was seen and identified in the preoperative area. Risks, benefits, complications, and alternatives were discussed with the patient (including but not limited to incomplete pain relief, bleeding, infection, nerve damage, and allergies to medications), the patient agreed to proceed with the procedure and signed the consent after all questions were answered. Patient was taken to the OR and time out was completed to verify proper patient , position, laterality of pain, and allergies. Pt was placed in the prone position. A pillow was placed under the patients chest to increase the cervical interlaminar space. The cervical area was prepped and draped in the usual sterile fashion. Critical pause was taken. Vital signs were closely monitored during the procedure. Conscious sedation was used during the procedure to decrease patients anxiety. Using anterior-posterior fluoroscopy, the C7-T1 interlaminar space was identified and the skin over this site was marked and then infiltrated with 1% lidocaine subcutaneously in a right paramedian fashion. Subsequently, a 20- gauge 3-1/2-inch Tuohy epidural needle was inserted and advanced toward the epidural space by means of the loss of resistance technique to air and guided by AP and lateral fluoroscopy. After negative aspiration for blood or CSF and in the absence of paresthesias, the correct needle position in the epidural space was verified with the injection of 1 mL of the water soluble contrast dye Omnipaque-180 and observing an excellent epidurogram with the epidural spread of the dye, after negative aspiration for blood and CSF and in the absence of paresthesias. Again after negative aspiration, a 5 ml mixture containing 10 mg of Decadron and 4 ml of preservative free Normal Saline solution was injected and a washout of epidurogram was seen. Needle was withdrawn intact, skin was cleansed, and bandages were applied. COMPLICATIONS: None COMMENTS: DISPOSITION / PLANS: The patient was placed in a supine position and transferred to the recovery area in a stable condition for observation. There was no evidence of upper extremity motor or sensory deficit after the procedure. Patient was discharged from the recovery room after meeting discharge criteria. Home discharge instructions were given to the patient by the staff. The patient will schedule a repeat FORTUNATO in 4-6 weeks.
--- NOTE | 2017-02-05 09:46 | FL ---
Fluoroscopy HISTORY: Pain 6 seconds fluoroscopy time supplied to the referring clinician. 1 intraoperative C-arm images docume nt the procedure. See dictated report from anesthesia.
[2017-02-05] MEDS ORDERED: IV FLUID CONTINUATION 1,000 ML IV ONE (09:52)
[2017-02-05 10:31] VITALS: BP 130/60; PULSE 61
== END 2017-02-05 10:43 | disposition home or self-care (01) ==
LOC: ORPAIN 07:56
PROVIDERS: ATTEND Anesthesiology
DX: M47.22 Other spondylosis with radiculopathy, cervical region (principal); Z88.1 Allergy status to other antibiotic agents; Z88.0 Allergy status to penicillin; Z88.2 Allergy status to sulfonamides; Z79.82 Long term (current) use of aspirin; Z79.899 Other long term (current) drug therapy
CPT/HCPCS: 62321; J2250; J1100; Q9965; J3010; 99152

== ENCOUNTER 2017-04-09 06:56 | Day surgery (SDC) | payer MEDICARE, OTHER ==
[2017-04-08 09:17] VITALS: BMI 22.4
[2017-04-09] MEDS ORDERED: LACTATED RINGERS 1,000 ML IV SCH (07:00)
[2017-04-09 07:50] VITALS: TEMP 97.7
[2017-04-09] MEDS ORDERED: LIDOCAINE 1% 20 ML VIAL (10MG/ML) FOR IV START INTRADERMA ONE (07:55)
--- NOTE | 2017-04-09 08:33 | P.PCN ---
Date of Procedure: 04/09/17 Procedure(s) Performed: . PROCEDURE 1. Cervical epidural steroid injection under fluoroscopic guidance, C7-T1 2. Cervical epidurogram. PREOPERATIVE DIAGNOSIS: 1- Cervical Degenerative Disc Diseases 2- Cervical radiculopathy., 3-cervical spondylosis with cervical Facet arthropathy without myelopathy POSTOPERATIVE DIAGNOSIS: : 1- Cervical Degenerative Disc Diseases , 2- Cervical radiculopathy. 3-,cervical spondylosis with cervical Facet arthropathy without myelopathy ANESTHESIA: Local anesthesia with 1% lidocaine and IV sedation with Versed 1 mg and Fentanyl 50 mcg. EBL 0 PROCEDURE INDICATION: The patient with neck pain and radiculitis unresponsive to conservative treatment consents for procedure. PROCEDURE DESCRIPTION / TECHNIQUE: The patient was seen and identified in the preoperative area. Risks, benefits, complications, including but not limited to infections ,bleeding , allergic reactions to the medications ,and not complete pain releife, and alternatives were discussed with the patient, the patient agreed to proceed with the procedure and signed the consent. Patient was taken to the OR and time out was completed. The patient was placed in the prone position on the procedure table. A pillow was placed under the patients chest to increase the cervical interlaminar space. The cervical area was prepped and draped in the usual sterile fashion. Vital signs were closely monitored during the procedure. Conscious sedation was used during the procedure to decrease patients anxiety. Using anterior-posterior fluoroscopy, the C7-T1 interlaminar space was identified and the skin over this site was marked and then infiltrated with 1% lidocaine subcutaneously. Subsequently, a 20-gauge 3-1/2-inch Tuohy epidural needle was inserted and advanced toward the epidural space by means of the `` hanging-drop technique and guided by AP and lateral fluoroscopy. The correct needle position in the epidural space was verified with the injection of 2 mL of the water soluble contrast dye Isovue-180 and observing an excellent epidurogram with the epidural spread of the dye, after negative aspiration for blood and CSF and in the absence of paresthesias. Again after negative aspiration, mixture containing 20 mg Dexamethasone and 2 ml of preservative- free normal saline injected and a washout of epidurogram was seen. Needle was withdrawn intact, skin was cleansed, and bandages were applied. Complications= none. Disposition= patient was placed in supine position and transferred to the recovery room area in stable condition and there was no evidence of upper or lower extremity motor or sensory deficit after the procedure patient was discharged from recovery room after discharge criteria met and home discharge instructions was given by the staff and patient will follow with the pain clinic in 2-4 weeks
[2017-04-09] MEDS ORDERED: IV FLUID CONTINUATION 825 ML IV ONE (08:47)
[2017-04-09 08:59] VITALS: RESP 18
[2017-04-09 09:23] VITALS: BP 156/72; PULSE 56
--- NOTE | 2017-04-09 09:25 | FL ---
EXAMINATION TYPE: FL guided pain mgmt statistic DATE OF EXAM: 04/09/2017 HISTORY: Flouroscopy time 8 seconds of fluoroscopy provided. IMPRESSION: 1. Fluoroscopy time.
== END 2017-04-09 09:31 | disposition home or self-care (01) ==
LOC: ORPAIN 06:56
PROVIDERS: ATTEND Specialist
DX: M50.10 Cervical disc disorder with radiculopathy, unspecified cervical region (principal); M47.812 Spondylosis without myelopathy or radiculopathy, cervical region; M79.7 Fibromyalgia; I10 Essential (primary) hypertension; I25.10 Atherosclerotic heart disease of native coronary artery without angina pectoris; Z88.1 Allergy status to other antibiotic agents; Z88.0 Allergy status to penicillin; Z88.2 Allergy status to sulfonamides; Z88.7 Allergy status to serum and vaccine
CPT/HCPCS: 62321; J2250; J1100; Q9965; J3010

== ENCOUNTER → 2017-05-19 | Outpatient (CLI) | payer MEDICARE, OTHER ==
[2017-05-19 14:18] VITALS: BP 186/78; PULSE 58; RESP 18; TEMP 97.8
--- NOTE | 2017-05-19 14:55 | P.PN ---
Subjective Progress Note Date: 05/19/17 This is a follow-up visit for this 76 years old female with a chronic history of severe neck pain, she was diagnosed with cervical radiculopathy cervical degenerative disc disease and cervical facet arthropathy, with done cervical epidural steroid injection 3, she had short-term benefit from it, a few weeks after each injection the pain currently localized in the cervical area with radiation to the shoulder blade , intensity of the pain 6/10 inches with neck movement to 8/10, she had no motor or sensory deficit ,she had no fever or night sweats ,she has no change in the bowel movements or urination Objective - Vital Signs Vital signs: Vital Signs Temp 97.8 F 05/19/17 14:04 Pulse 58 L 05/19/17 14:04 Resp 18 05/19/17 14:04 BP 186/78 05/19/17 14:04 Pulse Ox 99 05/19/17 14:04 Intake & Output 05/18/17 05/19/17 05/19/17 18:59 06:59 18:59 Weight 63.503 kg - Exam Physical Examinations : 1-Constitutiona : Cooperative , not in acute distress . 2-HEENT : nech ; supple , no Lymphadenopathy , normal thyroid size . eyes : no ptosis , no icterus, no photophobia . ENT : normal of hearing , normal oropharynx , no Thrush . 3- Respiratory : Chest clear to auscultations Bilaterally , no wheezing , no Rhonchi . 4- Cardiovascular : regular rate and rhythem , S1 , S2 , no S3 , no S4. 5- Gastrointestinal : abdomen soft no tenderness , bowel sounds positive all four quadrents , no organomegally . 6- Genitourinary : Defferred . 7- neurologic : Cranial nerve II to XII intact , no focal neurological deffecit . 8-psychatric : alert , oriented X 3 , appropriate affect , intact judgment and insight . 9-Lymphatic : no Lymphadenopathy . 10- musculoskeltal : cervical spine = motor stregnth in the deltoid and biceps, motor stregnth biceps and the wrist extensors (C6) . motor stregnth in the triceps muscle . deep tendon reflexes normal at the biceps , normal at Brachioradialis , normal at the Triceps positive cervical facet loading test . Left >right , Lumber spine = normal moter stegnth lower extremities ,thigh and legs .5/5 Assessment and Plan Plan: Assessment and plan= severe, chronic neck pain , secondary to cervical degenerative disc disease/cervical disc herniation, and cervical facet arthropathy. Patient continued to have severe neck pain after the cervical epidural steroid injections 3. Patient will be good candidate to have diagnostic medial branch block cervical area C2-3 , C3-4 ,C4-5 and if she had a positive result Then she will be good candidate for radiofrequency ablation of the medial branch cervical area, procedure risk and benefits and alternative Discussed with the patient and she agreed with the preceding.
== END | disposition home or self-care (01) ==
LOC: PNWHC3 13:19
PROVIDERS: ATTEND Specialist
DX: G89.29 Other chronic pain (principal); M50.10 Cervical disc disorder with radiculopathy, unspecified cervical region; M46.92 Unspecified inflammatory spondylopathy, cervical region
CPT/HCPCS: 99211

== ENCOUNTER 2017-06-10 08:15 | Day surgery (SDC) | payer MEDICARE, OTHER ==
[2017-06-05 10:07] VITALS: BMI 22.9
[~2017-06-10 08:15] MED LIST changes: -LACTATED RINGERS 1,000 ML IV ONE; +LACTATED RINGERS 1,000 ML IV SCH
[2017-06-10 08:40] VITALS: RESP 18; TEMP 98
[2017-06-10] MEDS ORDERED: LACTATED RINGERS 1,000 ML IV ONE (08:40)
[2017-06-10] MEDS ORDERED: LIDOCAINE 1% 20 ML VIAL (10MG/ML) FOR IV START INTRADERMA ONE (08:41)
[2017-06-10] MEDS ORDERED: IV FLUID CONTINUATION 1,000 ML IV ONE (09:59)
[2017-06-10] MEDS ORDERED: KETOROLAC 30 MG/ML 1 ML VIAL IVP STA (10:03)
--- NOTE | 2017-06-10 10:11 | P.PCN ---
Date of Procedure: 06/10/17 Surgeon: Geovanni Fernandez Pathology: none sent Condition: stable Disposition: PACU Description of Procedure: PREOPERATIVE DIAGNOSIS: Cervical spondylosis without myelopathy, cervicogenic headache. POSTOPERATIVE DIAGNOSIS: same PROCEDURES: Diagnostic bilateral C2-C3, C3-C4, C4-C5 medial branch block with fluoroscopic guidance ANESTHESIA: Local with 1% lidocaine; conscious sedation EBL: Minimal PROCEDURE INDICATION: This is a patient with neck pain and headaches secondary to cervical arthropathy unresponsive to more conservative treatments. No use of blood thinners. PROCEDURE DESCRIPTION / TECHNIQUE: The patient was seen and identified in the preoperative area. Risks, benefits, complications, and alternatives were discussed with the patient (including but not limited to incomplete pain relief , bleeding, infection, nerve damage, and allergies to medications), the patient agreed to proceed with the procedure and signed the consent after all questions were answered. IV was started. Vital signs remained stable throughout the procedure. Patient was taken to the OR and time out was completed. The patient was placed in the prone position on the procedure table. A pillow was placed under the patients chest to increase the cervical interlaminar space. The cervical area was prepped and draped in the usual sterile fashion. Critical pause was taken. Vital signs were closely monitored during the procedure. Conscious sedation was used during the procedure to decrease patients anxiety. Using cross-table lateral fluoroscopy, the centroid of the trapezoid of right C3 , was identified, marked, and localized with 1% lidocaine. Subsequently, a 25 G spinal needle was advanced guided by fluoroscopy to the centroid of the trapezoid of C3. Needle tip position was confirmed at the centroid of the trapezoids of C3 with anteroposterior fluoroscopy. Subsequently, 1 ml of a combination of 10 mg Decadron and 7 ml of preservative-free Bupivacaine 0.5% was injected after negative aspiration for blood and CSF. Needle was then removed intact; the same procedure was repeated at the right C2 and C4 levels and then the left C2, C3, and C4 levels. COMPLICATIONS: No acute complications. COMMENTS: DISPOSITION / PLANS: The patient was placed in a supine position and transferred to the recovery area in a stable condition for observation and was discharged from the recovery room after meeting discharge criteria. Home discharge instructions given to the patient by the staff. The patient was reexamined prior to discharge. The patient will schedule a repeat bilateral CMBB in 3-4 weeks.
[2017-06-10 10:14] VITALS: BP 150/77; PULSE 60
--- NOTE | 2017-06-10 10:26 | FL ---
EXAMINATION TYPE: FL guided pain mgmt statistic DATE OF EXAM: 06/10/2017 HISTORY: Flouroscopy time 10 seconds of fluoroscopy provided. IMPRESSION: 1. Fluoroscopy time.
== END 2017-06-10 10:45 | disposition home or self-care (01) ==
LOC: ORPAIN 08:15
PROVIDERS: ATTEND Anesthesiology
DX: G89.29 Other chronic pain (principal); M47.812 Spondylosis without myelopathy or radiculopathy, cervical region; M50.10 Cervical disc disorder with radiculopathy, unspecified cervical region; Z88.1 Allergy status to other antibiotic agents; Z88.0 Allergy status to penicillin; Z88.2 Allergy status to sulfonamides; Z88.7 Allergy status to serum and vaccine; G62.9 Polyneuropathy, unspecified; Z95.5 Presence of coronary angioplasty implant and graft; F03.90 Unspecified dementia, unspecified severity, without behavioral disturbance, psychotic disturbance, mood disturbance, and anxiety
CPT/HCPCS: 64490; 64491; 64492; J2250; J1100; J1885; 99152

== ENCOUNTER → 2017-07-25 | Outpatient (CLI) | payer MEDICARE, OTHER ==
--- NOTE | 2017-07-26 16:30 | XR ---
EXAMINATION TYPE: XR lumbar spine 2 or 3V DATE OF EXAM: 07/25/2017 COMPARISON: 06/23/2016 HISTORY: 76-year-old female right hip pain TECHNIQUE: 3 views FINDINGS: Posterior fusion defect of S1. Moderate disc interspace narrowing at L4-L5 with endplate spondylosis. Facet arthropathy mid to lower lumbar spine. Mild disc interspace narrowing at and L2-L3, L3-L4, and L5-S1. Degenerative disc disease visualized lower thoracic spine as well. Vertebral body heights are preserved. Alignment is maintained. IMPRESSION: 1. Relatively similar moderate degenerative disc disease along with facet arthropathy. Greatest at L4 -L5. 2. No vertebral compression collapse or malalignment.
--- NOTE | 2017-07-26 16:31 | XR ---
EXAMINATION TYPE: XR Hip Complete RT DATE OF EXAM: 07/25/2017 COMPARISON: 02/27/2014 HISTORY: 76 year-old female right hip pain TECHNIQUE: 2 views FINDINGS: Images show right hip total arthroplasty. No periprosthetic lucency or periprosthetic fracture. Mild heterotopic ossification superiorly along the hip joint has not significantly progressed from 2014. A lignment grossly anatomic. IMPRESSION: Unchanged and uncomplicated appearance to the right hip total arthroplasty.
== END | disposition home or self-care (01) ==
LOC: RADXRMAIN 09:39
PROVIDERS: ATTEND Internal Medicine
DX: M51.36 Other intervertebral disc degeneration, lumbar region (principal); M46.96 Unspecified inflammatory spondylopathy, lumbar region; M76.11 Psoas tendinitis, right hip; Z96.641 Presence of right artificial hip joint
CPT/HCPCS: 72100; 73502

== ENCOUNTER 2017-09-12 05:26 | Emergency (ER) | payer MEDICARE, OTHER ==
[2017-09-12 05:35] VITALS: BP 178/82; PULSE 57; RESP 20; TEMP 97.2
--- NOTE | 2017-09-12 05:54 | ED ---
General Adult HPI - General Chief complaint: ENT Stated complaint: bug in right ear Time Seen by Provider: 09/12/17 05:30 Source: patient, RN notes reviewed Mode of arrival: ambulatory Limitations: no limitations - History of Present Illness Initial comments: This is a 77-year-old female presents emergency department thinking she has a bug in her right ear. Patient states she feels occasional flutter and thinks this may be the wings some sort of bug. Patient did not notice bug going near and currently she does not feel any movement in the right ear. Patient denies any other symptoms at this time. - Related Data Home Medications Medication Instructions Recorded Confirmed Metoprolol Succinate (ER) [Toprol 25 mg PO DAILY 06/21/16 09/12/17 XL] Oxybutynin Chloride [Ditropan] 5 mg PO BID 06/21/16 09/12/17 Donepezil [Aricept] 23 mg PO HS 10/19/16 09/12/17 Memantine [Namenda] 5 mg PO BID 10/19/16 09/12/17 rOPINIRole HCL [Requip] 2 mg PO BID 10/20/16 09/12/17 Aspirin 160 mg PO DAILY 12/19/16 09/12/17 Olkpscrorxqdxk-XX-Xycbublype 1 tab PO DAILY 12/19/16 09/12/17 [Folbic] Gabapentin [Neurontin] 400 mg PO BID 12/19/16 09/12/17 Ergocalciferol (Vitamin D2) 50,000 unit PO WE 06/05/17 09/12/17 [Vitamin D2] Previous Rx's Medication Instructions Recorded hydrALAZINE HCL [Apresoline] 50 mg PO TID #90 tab 06/25/16 Allergies Allergy/AdvReac Type Severity Reaction Status Date / Time erythromycin base Allergy Unknown Verified 07/06/17 10:38 Penicillins Allergy Unknown Verified 07/06/17 10:38 Sulfa (Sulfonamide Allergy Unknown Verified 07/06/17 10:38 Antibiotics) tetanus and diphtheria Allergy Unknown Verified 07/06/17 10:38 toxoids [tetanus & diphtheria toxoids] Review of Systems ROS Statement: Those systems with pertinent positive or pertinent negative responses have been documented in the HPI. ROS Other: All systems not noted in ROS Statement are negative. 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 Last Myocardial Infarction Date:: 2004 History of Any Multi-Drug Resistant Organisms: ESBL Date of last positivie culture/infection: 06/10/16 ESBL E.coli MDRO Source:: Urine Past Surgical History: Appendectomy, Heart Catheterization With Stent, Hysterectomy, Orthopedic Surgery Additional Past Surgical History / Comment(s): right hip replacement, left cataract removal, right elbow shoulder. CERVICAL PAIN INJ Past Anesthesia/Blood Transfusion Reactions: No Reported Reaction Date of Last Stent Placement:: 2004 Past Psychological History: No Psychological Hx Reported Smoking Status: Never smoker - Past Family History Father Family Medical History: Myocardial Infarction ([place]) Mother Family Medical History: No Reported History Brother(s) Family Medical History: Unable to Obtain Sister(s) Family Medical History: Unable to Obtain Daughter(s) History Unknown: Yes Son(s) Family Medical History: Unable to Obtain General Exam - General Exam Comments Initial Comments: GENERAL Patient is well-developed and well-nourished. Patient is in mild distress. EYES Patient's pupils are equal and round. Extraocular motion is intact ENT I examined the patient's ears there are no bugs noted in either ear canal. SKIN Unremarkable NEURO The patient is alert and oriented 3 PYSCH Patient has normal interpersonal interactions. MUSCULOSKELETAL All 4 extremities have full range of motion Limitations: no limitations Course Vital Signs 09/12/17 05:31 Temperature 97.2 F L Pulse Rate 57 L Respiratory 20 Rate Blood Pressure 178/82 O2 Sat by Pulse 98 Oximetry Disposition Clinical Impression: Foreign body sensation in ear canal Disposition: HOME SELF-CARE Condition: Good Is patient prescribed a controlled substance at d/c from ED?: No Referrals: Katlyn Kendrick MD [Primary Care Provider] - 1-2 days Time of Disposition: 05:54
== END 2017-09-12 06:03 | disposition home or self-care (01) ==
LOC: EC 05:26
DX: T16.1XXA Foreign body in right ear, initial encounter (principal); I10 Essential (primary) hypertension; I25.10 Atherosclerotic heart disease of native coronary artery without angina pectoris; F03.90 Unspecified dementia, unspecified severity, without behavioral disturbance, psychotic disturbance, mood disturbance, and anxiety; M19.90 Unspecified osteoarthritis, unspecified site; M79.7 Fibromyalgia; I25.2 Old myocardial infarction; Z79.82 Long term (current) use of aspirin; Z79.899 Other long term (current) drug therapy; Z88.0 Allergy status to penicillin; Z88.1 Allergy status to other antibiotic agents; Z88.2 Allergy status to sulfonamides; Z88.7 Allergy status to serum and vaccine
CPT/HCPCS: 99282

== ENCOUNTER 2018-08-26 22:23 | Emergency (ER) | payer MEDICARE, OTHER ==
[2018-08-26] MEDS ORDERED: DIAZEPAM 5 MG/ML 2 ML INJ IVP STA (23:31)
[2018-08-26] MEDS ORDERED: KETOROLAC 30 MG/ML 1 ML VIAL IVP STA (23:31)
[2018-08-27 00:31] LABS: Basophils # (A) 0.1 k/uL (0-0.2); Basophils % (A) 1 %; Eosinophils # (A) 0.2 k/uL (0-0.7); Eosinophils % (A) 3 %; HCT 38.8 % (34.0-46.0); HGB 12.7 gm/dL (11.4-16.0); Lymphocytes # (A) 1.9 k/uL (1.0-4.8); Lymphocytes % (A) 24 %; MCH 25.5 pg (25.0-35.0); MCHC 32.6 g/dL (31.0-37.0); MCV 78.1 fL (80.0-100.0); Mean Platelet Volume 6.5; Monocytes # (A) 0.4 k/uL (0-1.0); Monocytes % (A) 5 %; Neutrophils # (A) 5.2 k/uL (1.3-7.7); Neutrophils % (A) 66 %; Platelet Count 174 k/uL (150-450); RBC 4.97 m/uL (3.80-5.40); RDW 15.1 % (11.5-15.5); WBC 7.9 k/uL (3.8-10.6)
[2018-08-27 00:39] LABS: ALT 23 U/L (9-52); AST 30 U/L (14-36); Albumin 3.9 g/dL (3.5-5.0); Alkaline Phosphatase 112 U/L (38-126); Anion Gap 6 mmol/L; Blood Urea Nitrogen 12 mg/dL (7-17); Calcium 9.1 mg/dL (8.4-10.2); Carbon Dioxide 26 mmol/L (22-30); Chloride 104 mmol/L (98-107); Creatine Kinase 149 U/L (30-135); Glucose 111 mg/dL (74-99); Magnesium 2.2 mg/dL (1.6-2.3); Potassium 4.1 mmol/L (3.5-5.1); Sodium 136 mmol/L (137-145); Total Bilirubin 0.4 mg/dL (0.2-1.3); Total Protein 6.6 g/dL (6.3-8.2)
--- NOTE | 2018-08-27 01:42 | ED ---
Extremity Problem HPI - General Chief complaint: Extremity Problem,Nontraumatic Stated complaint: L arm pain, neck pain Time Seen by Provider: 08/26/18 23:07 Source: patient Mode of arrival: ambulatory Limitations: no limitations - History of Present Illness Initial comments: 78-year-old female patient presents to the emergency department today for evalu ation of muscle spasms to the left arm. Patient states she is also having muscle soreness to the right arm and muscle cramping in her toes. Patient states his been going on for the last 3-4 weeks. Patient states that his been lasting longer today so she presented here for further evaluation. She denies any chest pain or shortness of breath with this. Denies any neck or jaw pain. Patient denies any medication changes that may be contributing to this. Denies any recent increase in physical activity. Patient states she has been to see her primary care physician for this and they did labs and found nothing. Patient denies any recent rash, fever, chills, abdominal pain, nausea, vomiting, diarrhea, constipation, back pain, numbness, tingling, dizziness, weakness, hematuria, dysuria, urinary urgency, urinary frequency, headache, visual changes, or any other complaints. - Related Data Home Medications Medication Instructions Recorded Confirmed Metoprolol Succinate (ER) [Toprol 25 mg PO DAILY 06/21/16 08/26/18 XL] Oxybutynin Chloride [Ditropan] 5 mg PO BID 06/21/16 08/26/18 Memantine [Namenda] 5 mg PO BID 10/19/16 08/26/18 rOPINIRole HCL [Requip] 2 mg PO BID 10/20/16 08/26/18 Isnxlakuykdwip-TM-Sqddrezgyg 1 tab PO DAILY 12/19/16 08/26/18 [Folbic] ALPRAZolam [Xanax] 0.25 mg PO DAILY PRN 08/26/18 08/26/18 FLUoxetine HCL [PROzac] 20 mg PO DAILY 08/26/18 08/26/18 Gabapentin [Neurontin] 300 mg PO TID 08/26/18 08/26/18 Levothyroxine Sodium [Synthroid] 25 mcg PO DAILY 08/26/18 08/26/18 Mirtazapine [Remeron] 15 mg PO HS 08/26/18 08/26/18 Turmeric/Turmeric Root Extract 1 cap PO QID 08/26/18 08/26/18 [Turmeric 450-50 mg Capsule] Previous Rx's Medication Instructions Recorded hydrALAZINE HCL [Apresoline] 50 mg PO TID #90 tab 06/25/16 Diazepam [Valium] 5 mg PO TID PRN 3 Days #9 tab 08/27/18 Allergies Allergy/AdvReac Type Severity Reaction Status Date / Time erythromycin base Allergy Unknown Verified 08/26/18 23:11 Penicillins Allergy Unknown Verified 08/26/18 23:11 Sulfa (Sulfonamide Allergy Unknown Verified 08/26/18 23:11 Antibiotics) tetanus and diphtheria Allergy Unknown Verified 08/26/18 23:11 toxoids [tetanus & diphtheria toxoids] Review of Systems ROS Statement: Those systems with pertinent positive or pertinent negative responses have been documented in the HPI. ROS Other: All systems not noted in ROS Statement are negative. 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 Last Myocardial Infarction Date:: 2004 History of Any Multi-Drug Resistant Organisms: ESBL Date of last positivie culture/infection: 06/10/16 ESBL E.coli MDRO Source:: Urine Past Surgical History: Appendectomy, Heart Catheterization With Stent, Hysterectomy, Orthopedic Surgery Additional Past Surgical History / Comment(s): right hip replacement, left cataract removal, right elbow shoulder. CERVICAL PAIN INJ Past Anesthesia/Blood Transfusion Reactions: No Reported Reaction Date of Last Stent Placement:: 2004 Past Psychological History: No Psychological Hx Reported Smoking Status: Never smoker - Past Family History Father Family Medical History: Myocardial Infarction ([place]) Mother Family Medical History: No Reported History Brother(s) Family Medical History: Unable to Obtain Sister(s) Family Medical History: Unable to Obtain Daughter(s) History Unknown: Yes Son(s) Family Medical History: Unable to Obtain General Exam Limitations: no limitations General appearance: alert, in no apparent distress, other (This is a well- developed, well-nourished elderly female patient in no acute distress. Vital signs upon presentation are temperature 98.3F, pulse 73, respirations 20, blood pressure 151/75, pulse ox 96% on room air.) Eye exam: Present: normal appearance, PERRL, EOMI. Absent: scleral icterus, conjunctival injection, periorbital swelling ENT exam: Present: normal exam, normal oropharynx, mucous membranes moist Neck exam: Present: normal inspection. Absent: tenderness, meningismus, lymphadenopathy Respiratory exam: Present: normal lung sounds bilaterally. Absent: respiratory distress, wheezes, rales, rhonchi, stridor Cardiovascular Exam: Present: regular rate, normal rhythm, normal heart sounds. Absent: systolic murmur, diastolic murmur, rubs, gallop, clicks GI/Abdominal exam: Present: soft, normal bowel sounds. Absent: distended, tenderness, guarding, rebound, rigid Extremities exam: Present: normal inspection, full ROM, normal capillary refill, other (Skin to the upper extremities pink, warm, dry. Cap refills less than 3 seconds. Radial pulses are 2+ and equal bilaterally.). Absent: tenderness, pedal edema, joint swelling, calf tenderness Neurological exam: Present: alert, oriented X3, CN II-XII intact Psychiatric exam: Present: normal affect, normal mood Skin exam: Present: warm, dry, intact, normal color. Absent: rash Course Vital Signs 08/26/18 08/27/18 08/27/18 22:49 00:17 02:10 Temperature 98.3 F 97.5 F L 97.3 F L Pulse Rate 73 63 64 Respiratory 20 17 18 Rate Blood Pressure 151/75 133/71 144/80 O2 Sat by Pulse 96 97 97 Oximetry Medical Decision Making - Medical Decision Making 78-year-old female patient presented to the emergency department today for evaluation of left upper extremity muscle spasms. Physical examination is unremarkable. She is neurologically intact with no focal deficits. She is neurovascularly intact. No swelling to the arm. Labs reviewed and were unremarkable. Normal electrolytes. EKG showed normal sinus bradycardia. Troponin negative. Patient was given IV Valium here in the emergency department. Upon reevaluation she states she does feel much better. She'll be discharged home at this time to follow-up with her primary care physician. She'll be given a prescription for Valium. She does take Xanax at home, she is instructed to not take these together. She is instructed to not drive while taking his. Return parameters were discussed in detail. She verbalizes understanding and agrees this plan. - Lab Data Result diagrams: 08/26/18 23:58 08/26/18 23:58 Lab Results 08/26/18 08/26/18 08/26/18 Range/Units 23:58 23:58 23:58 WBC 7.9 (3.8-10.6) k/uL RBC 4.97 (3.80-5.40) m/uL Hgb 12.7 (11.4-16.0) gm/dL Hct 38.8 (34.0-46.0) % MCV 78.1 L (80.0-100.0) fL MCH 25.5 (25.0-35.0) pg MCHC 32.6 (31.0-37.0) g/dL RDW 15.1 (11.5-15.5) % Plt Count 174 (150-450) k/uL Neutrophils % 66 % Lymphocytes % 24 % Monocytes % 5 % Eosinophils % 3 % Basophils % 1 % Neutrophils # 5.2 (1.3-7.7) k/uL Lymphocytes # 1.9 (1.0-4.8) k/uL Monocytes # 0.4 (0-1.0) k/uL Eosinophils # 0.2 (0-0.7) k/uL Basophils # 0.1 (0-0.2) k/uL Sodium 136 L (137-145) mmol/L Potassium 4.1 (3.5-5.1) mmol/L Chloride 104 (98-107) mmol/L Carbon Dioxide 26 (22-30) mmol/L Anion Gap 6 mmol/L BUN 12 (7-17) mg/dL Creatinine 0.64 (0.52-1.04) mg/dL Est GFR (CKD-EPI)AfAm >90 (>60 ml/min/1.73 sqM) Est GFR (CKD-EPI)NonAf 86 (>60 ml/min/1.73 sqM) Glucose 111 H (74-99) mg/dL Calcium 9.1 (8.4-10.2) mg/dL Magnesium 2.2 (1.6-2.3) mg/dL Total Bilirubin 0.4 (0.2-1.3) mg/dL AST 30 (14-36) U/L ALT 23 (9-52) U/L Alkaline Phosphatase 112 (38-126) U/L Creatine Kinase 149 H (30-135) U/L Troponin I <0.012 (0.000-0.034) ng/mL Total Protein 6.6 (6.3-8.2) g/dL Albumin 3.9 (3.5-5.0) g/dL Disposition Clinical Impression: Muscle spasm Disposition: HOME SELF-CARE Condition: Good Instructions (If sedation given, give patient instructions): Muscle Spasm (ED) Additional Instructions: Take medication as directed. Follow-up with your primary care physician for recheck in 1-2 days. Return to the emergency department immediately for any new, worsening, or concerning symptoms. Prescriptions: Diazepam [Valium] 5 mg PO TID PRN 3 Days #9 tab PRN Reason: Muscle Spasm Is patient prescribed a controlled substance at d/c from ED?: No Referrals: Katlyn Kendrick MD [Primary Care Provider] - 1-2 days Time of Disposition: 01:42
[2018-08-27 02:12] VITALS: BP 144/80; PULSE 64; RESP 18; TEMP 97.3
== END 2018-08-27 02:10 | disposition home or self-care (01) ==
LOC: EC 22:23
DX: M62.838 Other muscle spasm (principal); R00.1 Bradycardia, unspecified; I25.10 Atherosclerotic heart disease of native coronary artery without angina pectoris; F03.90 Unspecified dementia, unspecified severity, without behavioral disturbance, psychotic disturbance, mood disturbance, and anxiety; M79.7 Fibromyalgia; I10 Essential (primary) hypertension; I25.2 Old myocardial infarction; M19.90 Unspecified osteoarthritis, unspecified site; Z88.0 Allergy status to penicillin; Z88.1 Allergy status to other antibiotic agents; Z88.2 Allergy status to sulfonamides; Z88.7 Allergy status to serum and vaccine; Z79.890 Hormone replacement therapy; Z79.899 Other long term (current) drug therapy; Z95.5 Presence of coronary angioplasty implant and graft; Z96.641 Presence of right artificial hip joint
CPT/HCPCS: 36415; 93005; 80053; 82550; 83735; 84484; 85025; 99283; 96374; 96375; J3360; J1885

== ENCOUNTER 2018-09-20 00:20 | Emergency (ER) | payer MEDICARE, OTHER ==
[2018-09-20 00:30] VITALS: BP 138/74; PULSE 66; RESP 20; TEMP 98.8
[2018-09-20] MEDS ORDERED: KETOROLAC 30 MG/ML 1 ML VIAL IM STA (00:56)
[2018-09-20] MEDS ORDERED: HYDROmorphone 1 MG/ML 1 ML SYRINGE IM STA (00:56)
--- NOTE | 2018-09-20 01:34 | CT ---
EXAM: CT Head Without Intravenous Contrast CLINICAL HISTORY: ITS.REASON CT Reason: Pain TECHNIQUE: Axial computed tomography images of the head/brain without intravenous contrast. CTDI is 45 mGy and DLP is 1102 mGy-cm. This CT exam was performed using one or more of the following dose reduction techniques: automated exposure control, adjustment of the mA and/or kV according to patient size, and/or use of iterative reconstruction technique. COMPARISON: No relevant prior studies available. FINDINGS: Brain: No hemorrhage, large hypodensity, or mass effect. Ventricles: No hydrocephalus. Bones/joints: Unremarkable. Soft tissues: Unremarkable. Sinuses: Unremarkable. Mastoid air cells: Clear. IMPRESSION: No acute hemorrhage, hydrocephalus, or mass effect. EXAM: CT Cervical Spine Without Intravenous Contrast CLINICAL HISTORY: ITS.REASON CT Reason: Pain TECHNIQUE: Axial computed tomography images of the cervical spine without intravenous contrast. CTDI is 12 mGy and DLP is 392 mGy-cm. This CT exam was performed using one or more of the following dose reduction techniques: automated exposure control, adjustment of the mA and/or kV according to patient size, and/or use of iterative reconstruction technique. COMPARISON: No relevant prior studies available. FINDINGS: Vertebrae: No acute fracture. Discs/spinal canal/neural foramina: Mild degenerative changes. No high grade spinal canal stenosis. Soft tissues: 12 mm calcified nodule in the left thyroid gland. IMPRESSION: No acute fracture or subluxation. 12 mm calcified nodule in the left thyroid gland.
[2018-09-20] MEDS ORDERED: ACET/COD 300 MG/30 MG STARTER PACK 6 TAB BTL PO STA (02:17)
[2018-09-20] MEDS ORDERED: methylPREDNISolone SOD SUCCI 125 MG/2 ML VIAL IM ONE (02:17)
--- NOTE | 2018-09-20 02:17 | ED ---
General Adult HPI - General Source: patient, family Mode of arrival: ambulatory Limitations: no limitations <Doreen May - Last Filed: 09/20/18 02:47> <Virginia Richard - Last Filed: 09/20/18 03:42> - General Chief complaint: Extremity Injury, Upper Stated complaint: Bonifacio Arm Pain Time Seen by Provider: 09/20/18 00:33 - History of Present Illness Initial comments: 78-year-old female patient presents to the emergency department today for evaluation of neck and bilateral upper extremity pain. Patient states she's been having symptoms for the last 2 weeks. States she was seen and evaluated in this emergency department, [facility], and her primary care physician. States that she has had labs, outpatient stress testing, and everything is, back normal. Patient states that the pain worsens with movement and pressing over her shoulders and neck. Patient does take medication for fibr omyalgia. States that she has been on her medications for quite some time and nothing is new. She denies any discontinuation of any medications. She denies any numbness or tingling to the hands. Denies any injuries. Denies any fever or chills. She is not having any chest pain or shortness of breath. No nausea or vomiting. Patient denies any recent rash, abdominal pain, nausea, vomiting, diarrhea, constipation, back pain, numbness, tingling, dizziness, weakness, hematuria, dysuria, urinary urgency, urinary frequency, headache, visual changes, or any other complaints. (Doreen May) - Related Data Home Medications Medication Instructions Recorded Confirmed Metoprolol Succinate (ER) [Toprol 25 mg PO DAILY 06/21/16 08/26/18 XL] Oxybutynin Chloride [Ditropan] 5 mg PO BID 06/21/16 08/26/18 Memantine [Namenda] 5 mg PO BID 10/19/16 08/26/18 rOPINIRole HCL [Requip] 2 mg PO BID 10/20/16 08/26/18 Dtftxyvcudypcb-BR-Fpuxakbflo 1 tab PO DAILY 12/19/16 08/26/18 [Folbic] ALPRAZolam [Xanax] 0.25 mg PO DAILY PRN 08/26/18 08/26/18 FLUoxetine HCL [PROzac] 20 mg PO DAILY 08/26/18 08/26/18 Gabapentin [Neurontin] 300 mg PO TID 08/26/18 08/26/18 Levothyroxine Sodium [Synthroid] 25 mcg PO DAILY 08/26/18 08/26/18 Mirtazapine [Remeron] 15 mg PO HS 08/26/18 08/26/18 Turmeric/Turmeric Root Extract 1 cap PO QID 08/26/18 08/26/18 [Turmeric 450-50 mg Capsule] Previous Rx's Medication Instructions Recorded hydrALAZINE HCL [Apresoline] 50 mg PO TID #90 tab 06/25/16 Diazepam [Valium] 5 mg PO TID PRN 3 Days #9 tab 08/27/18 predniSONE 50 mg PO DAILY #5 tablet 09/20/18 Allergies Allergy/AdvReac Type Severity Reaction Status Date / Time erythromycin base Allergy Unknown Verified 09/20/18 00:30 Penicillins Allergy Unknown Verified 09/20/18 00:30 Sulfa (Sulfonamide Allergy Unknown Verified 09/20/18 00:30 Antibiotics) tetanus and diphtheria Allergy Unknown Verified 09/20/18 00:30 toxoids [tetanus & diphtheria toxoids] Review of Systems ROS Other: All systems not noted in ROS Statement are negative. <Doreen May M - Last Filed: 09/20/18 02:47> ROS Other: All systems not noted in ROS Statement are negative. <Virginia Richard - Last Filed: 09/20/18 03:42> ROS Statement: Those systems with pertinent positive or pertinent negative responses have been documented in the HPI. 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 Last Myocardial Infarction Date:: 2004 History of Any Multi-Drug Resistant Organisms: ESBL Date of last positivie culture/infection: 06/10/16 ESBL E.coli MDRO Source:: Urine Past Surgical History: Appendectomy, Heart Catheterization With Stent, Hysterectomy, Orthopedic Surgery Additional Past Surgical History / Comment(s): right hip replacement, left cataract removal, right elbow shoulder. CERVICAL PAIN INJ Past Anesthesia/Blood Transfusion Reactions: No Reported Reaction Date of Last Stent Placement:: 2004 Past Psychological History: No Psychological Hx Reported Smoking Status: Never smoker Past Alcohol Use History: None Reported Past Drug Use History: None Reported - Past Family History Father Family Medical History: Myocardial Infarction ([place]) Mother Family Medical History: No Reported History Brother(s) Family Medical History: Unable to Obtain Sister(s) Family Medical History: Unable to Obtain Daughter(s) History Unknown: Yes Son(s) Family Medical History: Unable to Obtain <Doreen May - Last Filed: 09/20/18 02:47> General Exam Limitations: no limitations General appearance: alert, in no apparent distress, other (This is a well- developed, well-nourished elderly female patient in no acute distress. Vital signs upon presentation are temperature 98.8F, pulse 66, respirations 20, blood pressure 138/74, pulse ox 96% on room air.) Neck exam: Present: normal inspection, full ROM. Absent: tenderness, meningismus, lymphadenopathy Respiratory exam: Present: normal lung sounds bilaterally. Absent: respiratory distress, wheezes, rales, rhonchi, stridor Cardiovascular Exam: Present: regular rate, normal rhythm, normal heart sounds. Absent: systolic murmur, diastolic murmur, rubs, gallop, clicks GI/Abdominal exam: Present: soft, normal bowel sounds. Absent: distended, tenderness, guarding, rebound, rigid Extremities exam: Present: full ROM, normal capillary refill, other (Patient has multiple scabbed lesions to the bilateral dorsal forearms, ecchymosis noted. Skin is otherwise pink, warm, and dry. Cap refills less than 3 seconds. Radial pulses 2+ and equal bilaterally.). Absent: normal inspection, tenderness, pedal edema, joint swelling, calf tenderness Neurological exam: Present: alert, oriented X3, CN II-XII intact Psychiatric exam: Present: normal affect, normal mood Skin exam: Present: warm, dry, intact, normal color. Absent: rash <Doreen May - Last Filed: 09/20/18 02:47> Course Vital Signs 09/20/18 00:24 Temperature 98.8 F Pulse Rate 66 Respiratory 20 Rate Blood Pressure 138/74 O2 Sat by Pulse 96 Oximetry Medical Decision Making - Radiology Data Radiology results: report reviewed, image reviewed <Doreen May - Last Filed: 09/20/18 02:47> <Virginia Richard - Last Filed: 09/20/18 03:42> - Medical Decision Making 78-year-old female patient presents to the emergency department today for evaluation of neck and arm pain that started 2 weeks ago. Physical examination is relatively unremarkable. Neurovascular status is intact to the upper extremities. She is neurologically intact with no focal deficits. CT of the brain and C-spine was obtained and showed no acute abnormalities. There was some degenerative changes in the cervical spine with no high-grade spinal canal stenosis. I did discuss findings and results with the patient. We will do a trial of steroids. She is instructed to follow-up with her primary care physician to discuss pain management. Return parameters were discussed in detail. She verbalizes understanding and agrees with this plan. (Doreen May) I was available for consultation in the emergency department. The history and physical exam were done by the midlevel provider. I was consulted for this patient's care. I reviewed the case with the midlevel provider and based on their presentation of the patient, I agree with the assessment, medical decision making and plan of care as documented. Chart was dictated using [employer] dictation software. Attempts were made to correct any dictation errors however some typographical errors may persist. (Virginia Richard) - Radiology Data CT head without contrast was obtained. Report was reviewed in its entirety. Impression by Dr. Finley shows no acute hemorrhage, hydrocephalus, or mass effect. CT C-spine without contrast was obtained and shows no acute fracture or subluxation. 12 mm calcified nodule in the left thyroid gland. (Doreen May) Disposition Is patient prescribed a controlled substance at d/c from ED?: No Time of Disposition: 02:17 <Doreen May - Last Filed: 09/20/18 02:47> <Virginia Richard - Last Filed: 09/20/18 03:42> Clinical Impression: Bilateral arm pain, Neck pain Disposition: HOME SELF-CARE Condition: Good Instructions (If sedation given, give patient instructions): Arm Pain (ED) Additional Instructions: Take medications as directed. Complete steroid prescription in full. Take pain medication as needed. Follow-up with your primary care physician for recheck as soon as possible. Return to the emergency department immediately for any new, worsening, or concerning symptoms. Prescriptions: predniSONE 50 mg PO DAILY #5 tablet Referrals: Katlyn Kendrick MD [Primary Care Provider] - 1-2 days
== END 2018-09-20 02:46 | disposition home or self-care (01) ==
LOC: EC 00:20
DX: M79.602 Pain in left arm (principal); M79.601 Pain in right arm; M54.2 Cervicalgia; L98.9 Disorder of the skin and subcutaneous tissue, unspecified; I25.10 Atherosclerotic heart disease of native coronary artery without angina pectoris; M79.7 Fibromyalgia; I10 Essential (primary) hypertension; F03.90 Unspecified dementia, unspecified severity, without behavioral disturbance, psychotic disturbance, mood disturbance, and anxiety; I25.2 Old myocardial infarction; M19.90 Unspecified osteoarthritis, unspecified site; Z79.890 Hormone replacement therapy; Z79.899 Other long term (current) drug therapy; Z88.0 Allergy status to penicillin; Z88.1 Allergy status to other antibiotic agents; Z88.2 Allergy status to sulfonamides; Z88.7 Allergy status to serum and vaccine; Z96.641 Presence of right artificial hip joint; Z95.5 Presence of coronary angioplasty implant and graft
CPT/HCPCS: 72125; 70450; 99283; 96372 ×3; J2930; J1885; J1170

== ENCOUNTER 2018-10-04 01:34 | Emergency (ER) | payer MEDICARE, OTHER ==
--- NOTE | 2018-10-04 01:56 | ED ---
Abdominal Pain HPI - General Chief Complaint: Abdominal Pain Stated Complaint: Abdominal Pain Time Seen by Provider: 10/04/18 01:53 Source: patient Mode of arrival: ambulatory Limitations: no limitations - History of Present Illness Initial Comments: Mari is a 78-year-old female with extensive past medical history who presents to the emergency department today via private vehicle for evaluation of left-sided abdominal pain as well as pain in her left leg. Patient reports that over the past 3 weeks she has been dealing with myalgias and has developed a rash on bilateral upper and lower extremities. Patient has been referred to dermatology and is to be evaluated on Thursday. Patient reports that over the past few week she's been experiencing intermittent muscle cramping and pain. She states that around 8 PM tonight she developed a burning pain in the skin over her left abdomen and left leg. Patient reports that nothing relieves this she tried to wait it out but it persisted for a number of hours at which time she came to the ER for evaluation. She denies any associated intra-abdominal pain, nausea, vomiting, diarrhea, change in bowel or bladder habits. She denies any recent injuries. Patient reports that she's been so sick lately that she hasn't been very active. - Related Data Home Medications Medication Instructions Recorded Confirmed Metoprolol Succinate (ER) [Toprol 25 mg PO DAILY 06/21/16 08/26/18 XL] Oxybutynin Chloride [Ditropan] 5 mg PO BID 06/21/16 08/26/18 Memantine [Namenda] 5 mg PO BID 10/19/16 08/26/18 rOPINIRole HCL [Requip] 2 mg PO BID 10/20/16 08/26/18 Tncaeifuwpaxip-TX-Cbllinyguv 1 tab PO DAILY 12/19/16 08/26/18 [Folbic] ALPRAZolam [Xanax] 0.25 mg PO DAILY PRN 08/26/18 08/26/18 FLUoxetine HCL [PROzac] 20 mg PO DAILY 08/26/18 08/26/18 Gabapentin [Neurontin] 300 mg PO TID 08/26/18 08/26/18 Levothyroxine Sodium [Synthroid] 25 mcg PO DAILY 08/26/18 08/26/18 Mirtazapine [Remeron] 15 mg PO HS 08/26/18 08/26/18 Turmeric/Turmeric Root Extract 1 cap PO QID 08/26/18 08/26/18 [Turmeric 450-50 mg Capsule] Previous Rx's Medication Instructions Recorded hydrALAZINE HCL [Apresoline] 50 mg PO TID #90 tab 06/25/16 Diazepam [Valium] 5 mg PO TID PRN 3 Days #9 tab 08/27/18 predniSONE 50 mg PO DAILY #5 tablet 09/20/18 Allergies Allergy/AdvReac Type Severity Reaction Status Date / Time erythromycin base Allergy Unknown Verified 10/04/18 01:48 Penicillins Allergy Unknown Verified 10/04/18 01:48 Sulfa (Sulfonamide Allergy Unknown Verified 10/04/18 01:48 Antibiotics) tetanus and diphtheria Allergy Unknown Verified 10/04/18 01:48 toxoids [tetanus & diphtheria toxoids] Review of Systems ROS Statement: Those systems with pertinent positive or pertinent negative responses have been documented in the HPI. ROS Other: All systems not noted in ROS Statement are negative. 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 Last Myocardial Infarction Date:: 2004 History of Any Multi-Drug Resistant Organisms: ESBL Date of last positivie culture/infection: 06/10/16 ESBL E.coli MDRO Source:: Urine Past Surgical History: Appendectomy, Heart Catheterization With Stent, Hysterectomy, Orthopedic Surgery Additional Past Surgical History / Comment(s): right hip replacement, left cataract removal, right elbow shoulder. CERVICAL PAIN INJ Past Anesthesia/Blood Transfusion Reactions: No Reported Reaction Date of Last Stent Placement:: 2004 Past Psychological History: No Psychological Hx Reported Smoking Status: Never smoker Past Alcohol Use History: None Reported Past Drug Use History: None Reported - Past Family History Father Family Medical History: Myocardial Infarction (NE) Mother Family Medical History: No Reported History Brother(s) Family Medical History: Unable to Obtain Sister(s) Family Medical History: Unable to Obtain Daughter(s) History Unknown: Yes Son(s) Family Medical History: Unable to Obtain General Exam Limitations: no limitations Course Vital Signs 10/04/18 10/04/18 01:43 06:01 Temperature 98.3 F 98 F Pulse Rate 72 69 Respiratory 16 18 Rate Blood Pressure 137/84 154/79 O2 Sat by Pulse 98 98 Oximetry Medical Decision Making - Medical Decision Making Patient was seen and evaluated history is obtained from the patient Labs were ordered x-ray ordered Labs and KUB x-ray with no acute findings. Patient with persistent left upper quadrant abdominal pain. Computed tomography scan will be obtained to evaluate for intra-abdominal pathology. Computed tomography scan resulted with no acute findings mild splenomegaly. These results were discussed with the patient, patient still having some left upper quadrant abdominal discomfort after single dose of morphine. I advised the patient that if she continues to have discomfort I would recommend she be admitted to the hospital for further evaluation. Patient states that she does not want to be admitted to the hospital and she does not want to stay. Patient states she's been dealing with illness for a number of months she's been prescribed multiple medications, she states at this time she's weaned herself off of all 4 of her medications and does not want to just be given more medications without answers as to what's going on. Patient states that she will return if she has any worsening of her condition otherwise she will try to stay hydrated at home and will follow-up with dermatology as scheduled on Thursday. Patient would like referral to new primary care physician. Referrals were provided. All questions pertaining care were answered return parameters were discussed and the patient was discharged home in stable condition. - Lab Data Result diagrams: 10/04/18 02:21 10/04/18 02:21 Lab Results 10/04/18 10/04/18 10/04/18 Range/Units 02:21 02:21 02:21 WBC 5.8 (3.8-10.6) k/uL RBC 4.83 (3.80-5.40) m/uL Hgb 11.9 (11.4-16.0) gm/dL Hct 37.0 (34.0-46.0) % MCV 76.5 L (80.0-100.0) fL MCH 24.7 L (25.0-35.0) pg MCHC 32.3 (31.0-37.0) g/dL RDW 15.3 (11.5-15.5) % Plt Count 169 (150-450) k/uL Neutrophils % 65 % Lymphocytes % 26 % Monocytes % 5 % Eosinophils % 2 % Basophils % 1 % Neutrophils # 3.8 (1.3-7.7) k/uL Lymphocytes # 1.5 (1.0-4.8) k/uL Monocytes # 0.3 (0-1.0) k/uL Eosinophils # 0.1 (0-0.7) k/uL Basophils # 0.0 (0-0.2) k/uL Hypochromasia Slight Microcytosis Slight Sodium 140 (137-145) mmol/L Potassium 3.5 (3.5-5.1) mmol/L Chloride 103 (98-107) mmol/L Carbon Dioxide 26 (22-30) mmol/L Anion Gap 11 mmol/L BUN 7 (7-17) mg/dL Creatinine 0.61 (0.52-1.04) mg/dL Est GFR (CKD-EPI)AfAm >90 (>60 ml/min/1.73 sqM) Est GFR (CKD-EPI)NonAf 87 (>60 ml/min/1.73 sqM) Glucose 108 H (74-99) mg/dL Plasma Lactic Acid Gal 1.0 (0.7-2.0) mmol/L Calcium 8.9 (8.4-10.2) mg/dL Magnesium 2.2 (1.6-2.3) mg/dL Total Bilirubin 0.6 (0.2-1.3) mg/dL AST 26 (14-36) U/L ALT 31 (9-52) U/L Alkaline Phosphatase 108 (38-126) U/L Creatine Kinase 47 (30-135) U/L Total Protein 6.3 (6.3-8.2) g/dL Albumin 3.7 (3.5-5.0) g/dL Amylase 35 (30-110) U/L Lipase 49 (23-300) U/L Urine Color Urine Appearance (Clear) Urine pH (5.0-8.0) Ur Specific [place] (1.001-1.035) Urine Protein (Negative) Urine Glucose (UA) (Negative) Urine Ketones (Negative) Urine Blood (Negative) Urine Nitrite (Negative) Urine Bilirubin (Negative) Urine Urobilinogen (<2.0) mg/dL Ur Leukocyte Esterase (Negative) Urine RBC (0-5) /hpf Urine WBC (0-5) /hpf Ur Squamous Epith Cells (0-4) /hpf Urine Bacteria (None) /hpf Hyaline Casts (0-2) /lpf 10/04/18 Range/Units 03:42 WBC (3.8-10.6) k/uL RBC (3.80-5.40) m/uL Hgb (11.4-16.0) gm/dL Hct (34.0-46.0) % MCV (80.0-100.0) fL MCH (25.0-35.0) pg MCHC (31.0-37.0) g/dL RDW (11.5-15.5) % Plt Count (150-450) k/uL Neutrophils % % Lymphocytes % % Monocytes % % Eosinophils % % Basophils % % Neutrophils # (1.3-7.7) k/uL Lymphocytes # (1.0-4.8) k/uL Monocytes # (0-1.0) k/uL Eosinophils # (0-0.7) k/uL Basophils # (0-0.2) k/uL Hypochromasia Microcytosis Sodium (137-145) mmol/L Potassium (3.5-5.1) mmol/L Chloride (98-107) mmol/L Carbon Dioxide (22-30) mmol/L Anion Gap mmol/L BUN (7-17) mg/dL Creatinine (0.52-1.04) mg/dL Est GFR (CKD-EPI)AfAm (>60 ml/min/1.73 sqM) Est GFR (CKD-EPI)NonAf (>60 ml/min/1.73 sqM) Glucose (74-99) mg/dL Plasma Lactic Acid Gal (0.7-2.0) mmol/L Calcium (8.4-10.2) mg/dL Magnesium (1.6-2.3) mg/dL Total Bilirubin (0.2-1.3) mg/dL AST (14-36) U/L ALT (9-52) U/L Alkaline Phosphatase (38-126) U/L Creatine Kinase (30-135) U/L Total Protein (6.3-8.2) g/dL Albumin (3.5-5.0) g/dL Amylase (30-110) U/L Lipase (23-300) U/L Urine Color Light Yellow Urine Appearance Cloudy H (Clear) Urine pH 5.5 (5.0-8.0) Ur Specific [place] 1.005 (1.001-1.035) Urine Protein Negative (Negative) Urine Glucose (UA) Negative (Negative) Urine Ketones Negative (Negative) Urine Blood Small H (Negative) Urine Nitrite Positive H (Negative) Urine Bilirubin Negative (Negative) Urine Urobilinogen <2.0 (<2.0) mg/dL Ur Leukocyte Esterase Large H (Negative) Urine RBC 11 H (0-5) /hpf Urine WBC 48 H (0-5) /hpf Ur Squamous Epith Cells 9 H (0-4) /hpf Urine Bacteria Moderate H (None) /hpf Hyaline Casts 3 H (0-2) /lpf Disposition Clinical Impression: Abdominal pain Disposition: HOME SELF-CARE Condition: Stable Instructions (If sedation given, give patient instructions): Abdominal Pain (ED) Is patient prescribed a controlled substance at d/c from ED?: No Referrals: Katlyn Kendrick MD [Primary Care Provider] - 1-2 days Peng Vidales MD [STAFF PHYSICIAN] - 1-2 days Rancho Newton MD [STAFF PHYSICIAN] - 1-2 days Jame Cao MD [STAFF PHYSICIAN] - 1-2 days
[2018-10-04] MEDS ORDERED: SODIUM CHLORIDE 0.9% 1,000 ML IV STA (01:58)
--- NOTE | 2018-10-04 02:46 | XR ---
EXAM: XR Abdomen, 1 View CLINICAL HISTORY: ITS.REASON XR Reason: abdominal pain TECHNIQUE: Frontal supine view of the abdomen/pelvis. COMPARISON: No relevant prior studies available. IMPRESSION: No bowel obstruction. No free air. Right hip arthroplasty hardware appears to be intact.
[2018-10-04 03:34] LABS: Basophils % (A) 1 %; Eosinophils # (A) 0.1 k/uL (0-0.7); Eosinophils % (A) 2 %; HGB 11.9 gm/dL (11.4-16.0); Hypochromasia Slight; Lymphocytes # (A) 1.5 k/uL (1.0-4.8); Lymphocytes % (A) 26 %; MCH 24.7 pg (25.0-35.0); MCHC 32.3 g/dL (31.0-37.0); MCV 76.5 fL (80.0-100.0); Microcytosis Slight; Monocytes # (A) 0.3 k/uL (0-1.0); Monocytes % (A) 5 %; Neutrophils # (A) 3.8 k/uL (1.3-7.7); Neutrophils % (A) 65 %; Platelet Count 169 k/uL (150-450); RBC 4.83 m/uL (3.80-5.40); RDW 15.3 % (11.5-15.5); WBC 5.8 k/uL (3.8-10.6)
[2018-10-04 03:43] LABS: ALT 31 U/L (9-52); AST 26 U/L (14-36); African American GFR (CKD) >90 (>60 ml/min/1.73 sqM); Albumin 3.7 g/dL (3.5-5.0); Alkaline Phosphatase 108 U/L (38-126); Amylase 35 U/L (30-110); Anion Gap 11 mmol/L; Blood Urea Nitrogen 7 mg/dL (7-17); Calcium 8.9 mg/dL (8.4-10.2); Carbon Dioxide 26 mmol/L (22-30); Chloride 103 mmol/L (98-107); Creatine Kinase 47 U/L (30-135); Glucose 108 mg/dL (74-99); Lipase 49 U/L (23-300); Magnesium 2.2 mg/dL (1.6-2.3); Potassium 3.5 mmol/L (3.5-5.1); Sodium 140 mmol/L (137-145); Total Bilirubin 0.6 mg/dL (0.2-1.3); Total Protein 6.3 g/dL (6.3-8.2)
[2018-10-04] MEDS ORDERED: MORPHINE SULFATE 4 MG/ML SYRINGE IVP STA ×2 (03:50→06:10)
[2018-10-04 04:07] LABS: Appearance,Urine Cloudy (Clear); Bacteria,Urine Moderate /hpf; Bilirubin,Urine Negative (Negative); Blood,Urine Small (Negative); Color,Urine Light Yellow; Glucose,Urine (UA) Negative (Negative); Hyaline Casts,Urine 3 /lpf (0-2); Ketones,Urine Negative (Negative); Leukocyte Esterase,Urine Large (Negative); Nitrite,Urine Positive (Negative); PH, Urine 5.5 (5.0-8.0); Protein,Urine Negative (Negative); RBC,Urine 11 /hpf (0-5); Specific Gravity,Urine 1.005 (1.001-1.035); Squamous Epithelial Cell,Urine 9 /hpf (0-4); Urobilinogen,Urine <2.0 mg/dL (<2.0); WBC,Urine 48 /hpf (0-5)
[2018-10-04] MEDS ORDERED: cefTRIAXone IN SWFI 1,000 MG/10 ML SYRINGE IVP STA (04:20)
--- NOTE | 2018-10-04 05:43 | CT ---
EXAM: CT Abdomen and Pelvis With Intravenous Contrast CLINICAL HISTORY: ITS.REASON CT Reason: Pain LUQ TECHNIQUE: Axial computed tomography images of the abdomen and pelvis with intravenous contrast. CTDI is 20 mGy and DLP is 896 mGy-cm. This CT exam was performed using one or more of the following dose reduction techniques: automated exposure control, adjustment of the mA and/or kV according to patient size, and/or use of iterative reconstruction technique. COMPARISON: CT abdomen 05/30/2011 FINDINGS: Lung bases: No mass. No consolidation. ABDOMEN: Liver: Steatosis. Gallbladder and bile ducts: Unremarkable. Pancreas: Unremarkable. Spleen: Mildly enlarged. Adrenals: Unremarkable. Kidneys and ureters: No hydronephrosis. Stomach and bowel: No bowel obstruction. No bowel wall thickening. Colonic diverticulosis. Moderate hiatal hernia. PELVIS: Appendix: No appendicitis. Bladder: Unremarkable. Reproductive: Unremarkable. ABDOMEN and PELVIS: Intraperitoneal space: Unremarkable. Bones/joints: No acute fractures. Right hip arthroplasty hardware is intact. Soft tissues: Unremarkable. Vasculature: No abdominal aortic aneurysm. Lymph nodes: No enlarged lymph nodes. IMPRESSION: 1. Moderate hiatal hernia. 2. Colonic diverticulosis. 3. Mild hepatic steatosis. Mild splenomegaly.
[2018-10-04 06:02] VITALS: BP 154/79; PULSE 69; RESP 18; TEMP 98
[2018-10-04] MEDS ORDERED: SODIUM CHLORIDE 0.9% 1,000 ML IV SCH (06:15)
--- NOTE | 2018-10-06 07:48 | CDI ---
Documentation Clarification OP Dear Virginia CALI, DO Please do addendum to ED report for missing Physical examination. Thank you, Mirian Suh Silk Snapper If you have any questions, please contact Sales And Operations Trainee at [phone] [facility]
== END 2018-10-04 06:53 | disposition home or self-care (01) ==
LOC: EC 01:34
DX: R16.1 Splenomegaly, not elsewhere classified (principal); M79.605 Pain in left leg; R21 Rash and other nonspecific skin eruption; I25.10 Atherosclerotic heart disease of native coronary artery without angina pectoris; F03.90 Unspecified dementia, unspecified severity, without behavioral disturbance, psychotic disturbance, mood disturbance, and anxiety; M79.7 Fibromyalgia; I10 Essential (primary) hypertension; I25.2 Old myocardial infarction; M19.90 Unspecified osteoarthritis, unspecified site; Z90.49 Acquired absence of other specified parts of digestive tract; Z95.5 Presence of coronary angioplasty implant and graft; Z90.710 Acquired absence of both cervix and uterus; Z96.641 Presence of right artificial hip joint; Z79.890 Hormone replacement therapy; Z79.899 Other long term (current) drug therapy; Z88.1 Allergy status to other antibiotic agents; Z88.0 Allergy status to penicillin; Z88.2 Allergy status to sulfonamides; Z88.7 Allergy status to serum and vaccine; Z53.8 Procedure and treatment not carried out for other reasons
CPT/HCPCS: 99284; 96374; 96375; 96376; 96361; 36415; 80053; 82150; 82550; 83605; 83690; 83735; 85025; 81001; 74018; 74177; J2270; J0696; Q9967

== ENCOUNTER → 2018-10-07 | Outpatient (CLI) | payer MEDICARE, OTHER ==
--- NOTE | 2018-10-07 16:05 | P.PAINPG ---
Subjective Progress Note Date: 10/07/18 This is a follow-up visit for this 76 years old female with a chronic history of severe neck pain, she was diagnosed with cervical radiculopathy cervical degenerative disc disease and cervical facet arthropathy. She last underwent C2-C3, C3-C4, C4-C5 cervical medial branch blocks on 06/10/2018 and 07/09/2018. She reports almost 100% relief of pain from these injections for a few days following the injections. She does have dementia and is unsure of how long the pain relief lasted. She would like to proceed with the radiofrequency ablation. Today, she is also complaining of cramping in multiple locations including bilateral hands and bilateral toes and feet. She is also complaining of bilater al shoulder pain. She has no motor or sensory deficit ,she had no fever or night sweats ,she has no change in the bowel movements or urination. She has recently been going through a stressful time in her personal life. She lost her in February 2018, and his children have taken her to Court for settlement. She is very distressed about this and has not been sleeping well. She has taken d ifferent medications to help with sleep, to no effect. She denies active suicidal ideation. She has also had a recent breakout of boils/lesions on her upper extremities which were initially quite itchy, these lesions are better now. Review of systems: 4 point review of systems was negative Objective Vital signs: Reviewed in EMR - Exam GENERAL: Well appearing, in no acute distress PSYCH: Mood and affect is appropriate. Awake, alert, and oriented SKIN: Several sores/lesions visible on bilateral upper extremities. HEENT: Normocephalic, atraumatic. EOM intact CV: No pedal edema RESP: Respirations are unlabored, no audible wheezing GI: Abdomen non-distended MUSCULOSKELETAL: Bilateral upper extremity strength is normal and symmetric. No atrophy or tone abnormalities are noted. Left shoulder: Active abduction is pain limited to 80, active shoulder flexion is pain limited to 110. Tenderness to palpation along left anterior shoulder joint line. Neck: Pain to palpation over the cervical paraspinous muscles bilaterally, left greater than right. Spurling negative, Axial Loading Test negative, Mai's sign negative. Pain with neck flexion, extension, and lateral flexion. No obvious deformity or signs of trauma. Normal cervical lordotic curve Gait: Gait is normal NEUR: Bilateral upper extremity coordination and muscle stretch reflexes are physiologic and symmetric. No loss of sensation is noted. Cranial nerves are grossly intact Assessment and Plan Plan: Assessment and plan= severe, chronic neck pain , secondary to cervical degenerative disc disease/cervical disc herniation, and cervical facet arthropathy. Patient had good benefit from diagnostic medial branch block cervical area C2-3 , C3-4 ,C4-5 2, so we will proceed with radiofrequency ablation Discussed with the patient and she agreed with proceeding. Patient instructed to take OTC magnesium Glycinate 400 mg daily to help with cramping Objective - Vital Signs Vital signs: Intake & Output 10/06/18 10/07/18 10/07/18 18:59 06:59 18:59 Weight 72.575 kg PQRS Measure Charge Sheet Measure #130: Documentation of Current Meds in Medical Chart: Patient's medications documented in chart Measure #47: Advance Care Plan: Advance care planning discussed & documented, pt chose/unable to give Measure #412: Opioid Treatment Agreement: No documentation of signed opioid treatment agreement Measure #317: Preventitive Care & Scrn High Bld Press & F/U: Normal blood pressure, f/u not required Measure #128: Body Mass Index (BMI) Screening & Follow-up: BMI documented within normal parameters Measure #131: Pain Assessment & Follow-up: Pain positive & plan documented, Follow-up scheduled Measure #431: Unhealthy Alcohol Use Preventative Care & Scrn: Patient not identified as an unhealthy alcohol user PQRS Narrative: Smoking Status Never smoker Pain Intensity [Generalized] 6 Hx Alcohol Use (MH) No Home Medications: Ambulatory Orders Metoprolol Succinate (ER) [Toprol XL] 25 mg PO DAILY 06/21/16 Oxybutynin Chloride [Ditropan] 5 mg PO BID 06/21/16 hydrALAZINE HCL [Apresoline] 50 mg PO TID #90 tab 06/25/16 Memantine [Namenda] 5 mg PO BID 10/19/16 rOPINIRole HCL [Requip] 2 mg PO BID 10/20/16 Ndnxklcqdxdyvs-GV-Vsmicgsetp [Folbic] 1 tab PO DAILY 12/19/16 ALPRAZolam [Xanax] 0.25 mg PO DAILY PRN 08/26/18 FLUoxetine HCL [PROzac] 20 mg PO DAILY 08/26/18 Gabapentin [Neurontin] 300 mg PO TID 08/26/18 Levothyroxine Sodium [Synthroid] 25 mcg PO DAILY 08/26/18 Mirtazapine [Remeron] 15 mg PO HS 08/26/18 Turmeric/Turmeric Root Extract [Turmeric 450-50 mg Capsule] 1 cap PO QID 08/26/18 Diazepam [Valium] 5 mg PO TID PRN 3 Days #9 tab 08/27/18 predniSONE 50 mg PO DAILY #5 tablet 09/20/18 Controlled Substance Measures - Controlled Substance Measures Is patient prescribed a controlled substance at discharge?: No
== END | disposition home or self-care (01) ==
LOC: PNWHC3 13:41
PROVIDERS: ATTEND Anesthesiology
DX: G89.29 Other chronic pain (principal); M50.20 Other cervical disc displacement, unspecified cervical region; M50.30 Other cervical disc degeneration, unspecified cervical region; M46.92 Unspecified inflammatory spondylopathy, cervical region
CPT/HCPCS: 99211

== ENCOUNTER 2018-10-25 08:14 | Day surgery (SDC) | payer MEDICARE, OTHER ==
[2018-10-21 14:52] VITALS: BMI 25.2
[2018-10-25] MEDS ORDERED: LACTATED RINGERS 1,000 ML IV ONE (08:51)
[2018-10-25 08:52] VITALS: TEMP 97.6
[2018-10-25] MEDS ORDERED: IV FLUID CONTINUATION 1,000 ML IV ONE (10:46)
[2018-10-25 10:48] VITALS: RESP 16
--- NOTE | 2018-10-25 10:52 | P.PCN ---
Date of Procedure: 10/25/18 Procedure(s) Performed: PREOPERATIVE DIAGNOSIS: Cervical spondylosis POSTOPERATIVE DIAGNOSIS: Same PROCEDURES: Radiofrequency thermocoagulation of the C2, C3, C4 medial branches with fluoroscopic guidance on the left side for facets C2-3 and C3-4 SURGEON: Mingo Quinones M.D. ANESTHESIA: Moderate sedation with intravenous versed and fentanyl and local infiltration with lidocaine 1% 5 ml Fluoroscopy was used for the procedure and fluoroscopic images were saved to the radiology portion of patient's chart. EBL: Minimal PROCEDURE INDICATION: The patient with low back pain secondary to cervical facet arthropathy who had more than 50% relief of pain with previous diagnostic cervical medial branch block. PROCEDURE DESCRIPTION / TECHNIQUE: The patient was seen and identified in the preoperative area. Risks, benefits, complications, including but not limited to risk of infection ,bleeding , allergic reactions to the medications and incomplete pain relief , and alternatives were discussed with the patient, the patient agreed to proceed with the procedure and signed the consent. IV was started. The operative site was marked. Patient was taken to the OR and time out was completed. The patient was placed in the prone position on the procedure table. The cervical area was prepped and draped in the usual sterile fashion. . Vital signs were closely monitored during the procedure .IV sedation was used during the procedure to decrease patients anxiety. Using AP and lateral fluoroscopy, a 25-gauge 3 inch finder needle was placed at the centroid of the first targeted level. Then, using AP and then oblique fluoroscopy, the waist corresponding to the connection between the superior and transverse articular processes of the above-mentioned levels were identified, marked, and localized with 1% lidocaine. Subsequently, an [id number] radiofrequency cannula with a 10-mm active tip was advanced guided by fluoroscopy to the midpoint of the centroid on the lateral view of the corresponding cervical vertebral bodies at each site then underwent motor testing at 2.5 Hz with local stimulation, but no radicular symptoms down the arms. Then the sites underwent radiofrequency thermocoagulation at 80 degrees celsius for 90 seconds after injecting 0.5 ml of PF lidocaine 4%. A second round of radiofrequency ablation was performed after pulling each needle back by 1 mm. Cannulas were removed, the skin was cleansed and bandages were applied. COMPLICATIONS: No acute complications. DISPOSITION / PLANS: The patient was placed in a supine position and transferred to the recovery area in a stable condition for observation and was discharged from the recovery room after meeting discharge criteria. Home discharge instructions given to the patient by the staff. The patient will follow up in clinic in 2-4 weeks.
--- NOTE | 2018-10-25 10:55 | FL ---
EXAMINATION TYPE: FL guided pain mgmt statistic DATE OF EXAM: 10/25/2018 HISTORY: Flouroscopy time 22 seconds of fluoroscopy provided. IMPRESSION: 1. Fluoroscopy time.
[2018-10-25 11:21] VITALS: BP 169/91; PULSE 60
== END 2018-10-25 11:42 | disposition home or self-care (01) ==
LOC: ORPAIN 08:14
PROVIDERS: ATTEND Anesthesiology
DX: G89.29 Other chronic pain (principal); M47.22 Other spondylosis with radiculopathy, cervical region; M50.10 Cervical disc disorder with radiculopathy, unspecified cervical region; F03.90 Unspecified dementia, unspecified severity, without behavioral disturbance, psychotic disturbance, mood disturbance, and anxiety; Z79.890 Hormone replacement therapy; Z79.52 Long term (current) use of systemic steroids; Z79.899 Other long term (current) drug therapy
CPT/HCPCS: 64633; 64634; J2250; J3010; 99152; 99153

== ENCOUNTER → 2018-10-28 | Outpatient (CLI) | payer MEDICARE, OTHER ==
--- NOTE | 2018-10-28 15:42 | XR ---
Abdomen HISTORY: Pain Frontal abdomen on 2 images correlated to prior abdomen plain film and CT 10/04/2018 There is a scoliotic curvature to the lumbar spine. There is overlying artifact. Vascular calcificati ons are noted. Lung bases are clear. Degenerative disc changes are present in the lumbar spine, posto p change noted in the right hip. No evident pneumoperitoneum or bowel obstruction. Bone mineralizatio n mildly reduced. IMPRESSION: No acute abnormality
== END | disposition home or self-care (01) ==
LOC: RADXRMAIN 11:46
PROVIDERS: ATTEND Internal Medicine
DX: R10.9 Unspecified abdominal pain (principal)
CPT/HCPCS: 74018

== ENCOUNTER → 2018-11-10 | Outpatient (CLI) | payer MEDICARE, OTHER ==
--- NOTE | 2018-11-10 13:41 | P.PAINPG ---
Subjective Progress Note Date: 11/10/18 The patient is a 78-year-old female who presents for follow-up after left cervical RFA on 10/25/2018. Unfortunately after she went home she had incredible pain in the right neck. She describes even light touch being painful to her. This was a 10 on the tendon nature initially. She called into our clin ic and we put her on gabapentin however this did not help. She did try lidocaine patches at home. Since then her slow pain has been slowly resolving. His pain is on the opposite side of the procedure. Otherwise she denies any neurological deficits. Objective - Vital Signs Vital signs: Vital Signs Temp Pulse 74 11/10/18 12:42 Resp 18 11/10/18 12:42 BP 131/77 11/10/18 12:42 Pulse Ox 98 11/10/18 12:42 Intake & Output 11/09/18 11/10/18 11/10/18 18:59 06:59 18:59 Weight 72.575 kg - Exam Gen: WDWN, AAOx3, NAD HEENT: NCAT, EOMI, hearing grossly normal Pulm: resp unlabored Abd: soft, NT, ND Neck: supple, trachea midline She does have tenderness to palpation to light touch in her right shoulder neck. There are no visible lesions in the area. There are no signs of trauma and area Neuro: muscle strength in the upper extremity 5/5, neurologically intact Assessment and Plan Assessment: This patient's presents to follow up given allodynia symptoms in her right neck after left cervical RFA. Given that she has pain on the opposite side of the procedure, it is unclear what the source of her allodynia from. Symptoms that would be on the same side as a procedure would be consistent with previous RFA and neuritis, which improves with time. Fortunately, her pain is resolving slowly. She states that her pain is a 3 out of 10. Assessment: 1. Cervical spondylosis without myelopathy 2. Allodynia from unclear origin Plan: 1. It is unclear what is the cause of her pain, even this I offered her cervical MRI. She was given an order for this however she states she has other things going on at this point. 2. I recommended conservative management especially because this is improving and continue using lidocaine patches. 3. I offered to 8 week follow-up however she states that she will call when she is ready to follow up. The symptoms she is slightly upset with the clinic. PQRS Measure Charge Sheet Measure #226: Tobacco Use: Screen & Cessation Intervention: Pt not a tobacco user Measure #111: Pneumonia Vaccination: Pneumococcal vaccine NOT administered or previously given Measure #47: Advance Care Plan: Advance care planning discussed & documented, pt chose/unable to give Measure #412: Opioid Treatment Agreement: No documentation of signed opioid treatment agreement Measure #408: Opioid Therapy Follow-up Evaluation: Patient had NO f/u eval minimum every 3 months during opioid therapy Measure #317: Preventitive Care & Scrn High Bld Press & F/U: Normal blood pressure, f/u not required Measure #131: Pain Assessment & Follow-up: Pain positive & plan documented, Follow-up scheduled Measure #431: Unhealthy Alcohol Use Preventative Care & Scrn: Patient not identified as an unhealthy alcohol user PQRS Narrative: Smoking Status Never smoker Blood Pressure 131/77 Pain Intensity [Right Neck] 3 Scale Used Numeric (1 - 10) Hx Alcohol Use (MH) No Home Medications: Ambulatory Orders Metoprolol Succinate (ER) [Toprol XL] 25 mg PO DAILY 06/21/16 Oxybutynin Chloride [Ditropan] 5 mg PO BID 06/21/16 hydrALAZINE HCL [Apresoline] 50 mg PO TID #90 tab 06/25/16 Memantine [Namenda] 5 mg PO BID 10/19/16 rOPINIRole HCL [Requip] 2 mg PO BID 10/20/16 Levothyroxine Sodium [Synthroid] 25 mcg PO DAILY 08/26/18 Mirtazapine [Remeron] 15 mg PO HS 08/26/18 Atorvastatin [Lipitor] 20 mg PO DAILY 10/21/18 Donepezil [Aricept] 23 mg PO HS 10/21/18 Magnesium 200 mg PO DAILY 10/21/18 PARoxetine [Paxil] 20 mg PO DAILY 10/21/18 Controlled Substance Measures - Controlled Substance Measures Is patient prescribed a controlled substance at discharge?: No
== END ==
CPT/HCPCS: 99211

== ENCOUNTER → 2018-11-15 | Outpatient (CLI) | payer MEDICARE, OTHER ==
[2018-11-15 13:36] LABS: African American GFR (CKD) >90 (>60 ml/min/1.73 sqM); Blood Urea Nitrogen 9 mg/dL (7-17); Non-African American GFR(CKD) 85 (>60 ml/min/1.73 sqM)
--- NOTE | 2018-11-15 17:25 | CT ---
EXAMINATION TYPE: CT abdomen pelvis w con DATE OF EXAM: 11/15/2018 COMPARISON: 10/04/2018 INDICATION: Abdominal pain x 6 weeks. DLP: 504.1 mGycm, Automated exposure control for dose reduction was used. CONTRAST: 100 mL of Isovue M300. Study performed with Oral Contrast TECHNIQUE: Axial images were obtained from above the diaphragm to the pubic rami in the axial plane a t 5 mm thick sections. Reconstructed images are reviewed on the computer in the coronal plane. FINDINGS: Limited CT sections are obtained the lung bases. The lung bases are clear. CT ABDOMEN: Liver: Normal Spleen: Normal Pancreas: Normal Adrenal glands: The adrenal glands are normal. Gallbladder: Normal Kidneys: No masses are evident. No hydronephrosis is present. No cysts are present. Aorta: Vascular calcification is within the aorta. Inferior vena cava: Normal. CT PELVIS: Pelvis is limited due to beam hardening artifact from right hip prosthesis. Loops of bowel within the abdomen and pelvis are normal. There are loops of bowel which are incom pletely distended or lack oral contrast limiting their evaluation. Appendix: Not visualized Urinary bladder: Normal. Genitourinary structures: Uterus and ovaries are not identified. Osseous structures: No suspicious lytic or sclerotic lesions. Right hip prosthesis is present. There is a scoliosis of the lumbar spine. Sacroiliac joint degenerative changes are noted. IMPRESSIONS: 1. No suspicious acute abnormality to account for abdominal pain
== END | disposition home or self-care (01) ==
LOC: RADCTMAIN 12:36
PROVIDERS: ATTEND Internal Medicine
DX: R10.9 Unspecified abdominal pain (principal)
CPT/HCPCS: 82565; 84520; 74177; 36415; Q9967 ×2